=== PATIENT | male | born 1945 | race Caucasian/White ===

== ENCOUNTER 2018-11-18 14:12 | Observation (INO) ==
[2018-11-18 17:30] LABS: Basophils % 0.3 %; Eosinophils # 0.1 K/mcL (0.0-0.6); Eosinophils % 1.6 %; Hematocrit 31.6 % (37.5-50.1); Hemoglobin 9.7 g/dL (12.9-16.9); Immature Granulocytes % 0.6 % (0-4); Lymphocytes % 15.6 %; Mean Corpuscular HGB Conc 30.7 g/dL (31.6-35.5); Mean Corpuscular Hemoglobin 28.6 pg (28.0-33.3); Mean Corpuscular Volume 93.2 fL (83.0-100.0); Mean Platelet Volume 9.7 fL (9.4-12.4); Monocytes # 0.5 K/mcL (0.0-1.3); Monocytes % 7.6 %; Neutrophils # 4.7 K/mcL (1.6-8.9); Red Blood Count 3.39 M/mcL (4.19-5.50); Red Cell Distribution Width 19.5 % (11.5-14.5); Segmented Neutrophils % 74.3 %
[2018-11-18 17:57] LABS: Platelet Count 87 K/mcL (140-400)
[2018-11-18 18:00] LABS: Burr Cells 1+ (Not Present)
--- NOTE | 2018-11-18 18:54 | Emergency Department Note ---
Disposition Clinical Impression: Peripheral edema, Atrial fibrillation Disposition: Admitted As Inpatient Condition: Good Referrals: Peyton Hernandez CNP [Primary Care Provider] - Forms: ED Satisfaction Letter General Adult HPI - General Chief complaint: ED Extremity Injury, Lower Stated complaint: Possible Renal Failure,Needs Labs,Cellulitis Time Seen by Provider: 11/18/18 17:09 Source: patient Limitations: no limitations - History of Present Illness HPI Narrative: Patient is a 73-year-old gentleman presents to emergency department with a chief complaint of lower extremity swelling and possible cellulitis. The patient states that he recently was in the hospital had renal failure and was on dialysis for several days. Patient reports that he has had increasing edema in his lower extremities and was seen in the nephrology clinic today in the emergency department for possible cellulitis and possibility of worsening renal failure. The patient reports that he has had some increasing shortness of breath reports that he feels a little bit more tired than normal as well Pain Scale: 0 - Related Data Home Medications Medication Instructions Recorded Confirmed Amlodipine Besylate 10 mg PO BID 09/13/18 09/13/18 Atorvastatin Calcium [Lipitor] 20 mg PO HS 09/13/18 09/13/18 Fenofibrate Nanocrystallized 145 mg PO HS 09/13/18 09/13/18 [Fenofibrate] Losartan Potassium 50 mg PO DAILY 09/13/18 09/13/18 Metoprolol Succinate [Toprol Xl] 50 mg PO DAILY 09/13/18 09/13/18 Previous Rx's Medication Instructions Recorded amLODIPine [Norvasc] 5 mg PO DAILY #30 tablet 09/22/18 Allergies Allergy/AdvReac Type Severity Reaction Status Date / Time No Known Allergies Allergy Verified 09/13/18 16:59 All systems ED: reviewed and negative except as stated. Past Medical History - Past Medical History Attestation: Yes The following information was validated with the patient. Medical history: Reports: hyperlipidemia, hypertension, renal disease Psychiatric history: Reports: no psych history - Social History Smoking Status: Former smoker Smokeless Tobacco Status: No Alcohol use: Reports: none Drug use: Reports: none Physical Exam - General Limitations: no limitations General appearance: alert, in no apparent distress Course Vital Signs Temperature 97.3 F L 11/18/18 14:17 Pulse Rate 72 11/18/18 14:17 Respiratory Rate 14 11/18/18 14:17 Blood Pressure 141/77 11/18/18 14:17 O2 Sat by Pulse Oximetry 94 11/18/18 14:17 Temperature 97.3 F L 11/18/18 14:17 Pulse Rate 67 11/18/18 19:24 Respiratory Rate 16 11/18/18 19:24 Blood Pressure 155/96 11/18/18 19:24 O2 Sat by Pulse Oximetry 94 11/18/18 19:24 Oxygen Delivery Oxygen Delivery Room Air Medical Decision Making - Lab Data Result diagrams: 11/18/18 17:21 11/18/18 14:53 Lab Results 11/18/18 11/18/18 11/18/18 Range/Units 14:53 15:42 17:21 WBC 6.3 (4.3-11.1) K/mcL RBC 3.39 L (4.19-5.50) M/mcL Hgb 9.7 L (12.9-16.9) g/dL Hct 31.6 L (37.5-50.1) % MCV 93.2 (83.0-100.0) fL MCH 28.6 (28.0-33.3) pg MCHC 30.7 L (31.6-35.5) g/dL RDW 19.5 H (11.5-14.5) % Plt Count 87 L (140-400) K/mcL MPV 9.7 (9.4-12.4) fL Immature Gran % 0.6 (0-4) % Seg Neutrophils % 74.3 % Lymphocytes % 15.6 % Monocytes % 7.6 % Eosinophils % 1.6 % Basophils % 0.3 % Neutrophils # 4.7 (1.6-8.9) K/mcL Lymphocytes # 1.0 (0.6-4.6) K/mcL Monocytes # 0.5 (0.0-1.3) K/mcL Eosinophils # 0.1 (0.0-0.6) K/mcL Basophils # 0.0 (0.0-0.2) K/mcL [place] Cells 1+ A (Not Present) Sodium 140 (136-145) mEq/L Potassium 5.0 (3.5-5.1) mEq/L Chloride 116 H (98-107) mEq/L Carbon Dioxide 19 L (23-29) mEq/L BUN 52 H (8-23) mg/dL Creatinine 2.84 H (0.70-1.30) mg/dL Est GFR ( Amer) 26 L (> 60) Est GFR (Non-Af Amer) 22 L (> 60) BUN/Creatinine Ratio 18 (6-26) Glucose 111 H (70-105) mg/dL Calculated Osmolality 305 H (280-300) Calcium 9.0 (8.6-10.3) mg/dL B-Natriuretic Peptide (Less than 100) pg/mL Specimen Rejected Miscellaneous 11/18/18 Range/Units 17:22 WBC (4.3-11.1) K/mcL RBC (4.19-5.50) M/mcL Hgb (12.9-16.9) g/dL Hct (37.5-50.1) % MCV (83.0-100.0) fL MCH (28.0-33.3) pg MCHC (31.6-35.5) g/dL RDW (11.5-14.5) % Plt Count (140-400) K/mcL MPV (9.4-12.4) fL Immature Gran % (0-4) % Seg Neutrophils % % Lymphocytes % % Monocytes % % Eosinophils % % Basophils % % Neutrophils # (1.6-8.9) K/mcL Lymphocytes # (0.6-4.6) K/mcL Monocytes # (0.0-1.3) K/mcL Eosinophils # (0.0-0.6) K/mcL Basophils # (0.0-0.2) K/mcL [place] Cells (Not Present) Sodium (136-145) mEq/L Potassium (3.5-5.1) mEq/L Chloride (98-107) mEq/L Carbon Dioxide (23-29) mEq/L BUN (8-23) mg/dL Creatinine (0.70-1.30) mg/dL Est GFR ( Amer) (> 60) Est GFR (Non-Af Amer) (> 60) BUN/Creatinine Ratio (6-26) Glucose (70-105) mg/dL Calculated Osmolality (280-300) Calcium (8.6-10.3) mg/dL B-Natriuretic Peptide 339 H (Less than 100) pg/mL Specimen Rejected
[2018-11-19] MEDS ORDERED: Naloxone 0.4 MG/ML INJ IVP PRN (04:06)
--- NOTE | 2018-11-19 04:17 | Internal Med History&Physical ---
Date of Encounter: 11/19/18 Time of Encounter: 03:20 Internal Medicine - H&P: HPI Chief complaint: Lower extremity edema Admitted From: Emergency Dept Plans for Post Hospital Care: Home History of present illness: Mr. Leach is a 73 year old male Patient presented to the emergency room after being seen by his psychiatric cns earlier in the day. He had increased lower extremity swelling, and with his recent history of cellulitis and congestive heart failure exacerbation, they advised him to come to the emergency room for further evaluation. He also been having shortness of breath as well. He denies chest pain, abdominal pain, nausea, vomiting, diarrhea and constipation. He has no dysuria, and has had good urine output since he is arrived to the emergency room. During his previous admission he did require temporary dialysis. The dialysis catheter at this point has been removed, and patient's renal status has improved. In the emergency room patient's initial vital signs were within normal limits. CBC showed a platelet count of 87, down from his previous admission of 302. Hemoglobin has been stable how ever. BMP showed improved creatinine of 2.84 down from over 3.0 during his previous admission. Patient was noted to have [place] cells on his initial lab work as well. BNP was elevated at 339 which is around the same level as previous. Chest x-ray showed no evidence of acute congestive heart failure, but no lobar pneumonia. EKG's were performed that showed afib, without RVR. Patient was then sent to the medical floor for further management. Upon my evaluation, patient is resting comfortably in the hospital bed in no acute distress. He denies chest pain, abdominal pain, nausea, vomiting, diarrhe a and constipation. He says he is feeling better, has urinated frequently. His initial complaint was his lower extremity edema, he denies cellulitis another new skin changes. He states that his father had a heart attack at the age of 52, and his mother had an aneurysm. Patient himself also had abdominal aortic aneurysm which was repaired a few years ago. He is a prior smoker, but quit 35 years ago. He is a full code. Past Med Surg Social Fam HX - Past Medical History Medical history: hyperlipidemia, hypertension, renal disease Additional medical history: Abdominal Aneurysm Psychiatric history: no psych history - Past Surgical History Additional surgical history: Rotator cuff SX, Back pain - Social History Smoking Status: Former smoker Smokeless Tobacco Status: No Alcohol use: none Drug use: none Internal Medicine - H&P: Meds Amlodipine Besylate 10 mg PO BID 09/13/18 [History] Atorvastatin Calcium [Lipitor] 20 mg PO HS 09/13/18 [History] Fenofibrate Nanocrystallized [Fenofibrate] 145 mg PO HS 09/13/18 [History] Losartan Potassium 50 mg PO DAILY 09/13/18 [History] Metoprolol Succinate [Toprol Xl] 50 mg PO DAILY 09/13/18 [History] amLODIPine [Norvasc] 5 mg PO DAILY #30 tablet 09/22/18 [Rx] Stiolto Respimat Inhal [place] 2 puff PO DAILY 11/18/18 [History] Allergy/AdvReac Type Severity Reaction Status Date / Time No Known Allergies Allergy Verified 09/13/18 16:59 All Systems PM: A 10-system review of systems was performed and is negative for pertinent findings except as documented above in the HPI. - Constitutional Vitals: Temp Pulse Resp BP Pulse Ox 97.4 F L 81 20 155/86 95 11/18/18 22:06 11/18/18 22:06 11/18/18 22:06 11/18/18 22:06 11/18/18 22:06 General appearance: Present: cooperative, A&O X 3, pleasant, no acute distress, answers questions appropriately Exam: - - Head Head exam: Present: normal inspection - Eye Eye exam: Present: EOMI, normal appearance - Respiratory Respiratory exam: Present: rales. Absent: CTAB, respiratory distress, rhonchi, wheezes - Cardiovascular Cardiovascular exam: Present: irregular rhythm. Absent: diastolic murmur, RRR, systolic murmur, tachycardia - GI/Abdominal GI/Abdominal exam: Present: normal bowel sounds, soft. Absent: tenderness - Extremities Exam Extremities exam: Present: pedal edema, warm, radial pulses palpable and symmetrical. Absent: tenderness Additional comments: 3+ pitting edema bilaterally lower extremities - Neurological Exam Neurological exam: Present: no focal deficits, strengths equal and symetr throughout. Absent: motor sensory deficit, facial droop, speech deficit - Skin Skin exam: Present: dry, normal color, warm. Absent: erythema Internal Med - H&P Results - Labs CBC & Chem 7: 11/19/18 04:27 11/19/18 04:27 Labs: Short CBC 04/30/19 Range/Units 17:21 WBC 6.3 (4.3-11.1) K/mcL Hgb 9.7 L (12.9-16.9) g/dL Hct 31.6 L (37.5-50.1) % Plt Count 87 L (140-400) K/mcL Neutrophils # 4.7 (1.6-8.9) K/mcL BMP 11/18/18 14:53 Sodium 140 Potassium 5.0 Chloride 116 H Carbon Dioxide 19 L BUN 52 H Creatinine 2.84 H Glucose 111 H Calcium 9.0 - Impressions ITS Impressions Chest X-Ray 11/18/18 18:04 IMPRESSION: 1. Cardiomegaly with no evidence of acute congestive heart failure. 2. Asymmetric left bronchial wall thickening which may relate to bronchitis/bronchopneumonia. No lobar pneumonia. D/ / 11/18/2018 19:01:25 Marcos Haider MD / momo Interpreting Provider: Marcos Haider MD - Assessment and Plan (1) Peripheral edema Current Visit: Yes Status: Acute Assessment and plan: Patient would likely benefit from diuresis however due to his kidney function we will hold until input from nephrology. Patient is not on Lasix at home. No evidence of cellulitis in lower extremities or upper extremities. Chest and abdomen also clear. White count not elevated. Follow-up Nephrology consult in the morning Consider Lasix (2) Chronic kidney disease, stage IV (severe) Current Visit: Yes Status: Acute Assessment and plan: Patient no longer on dialysis. Renal function has improved. Holding off on IV fluids due to peripheral edema Nephrology consult in the morning (3) Diastolic heart failure Current Visit: No Status: Acute Assessment and plan: Patient's lower extremities are 3+ pitting edema bilaterally. Chest x-ray did not reveal evidence of CHF. BNP elevated at 339. Echocardiogram from August: Impressions: Not all LV morocho seen, LVEF grossly 50-55%. Mild concentric left ventricular hypertrophy. Mild left ventricular diastolic dysfunction. Normal right ventricular structure and function. No significant valvular dysfunction. Unable to estimate RVSP due to lack of TR jet. Recommend limited echo with definity for LV wall motion. Nephrology consult for guidance on diuresis in the setting of chronic kidney disease stage IV Repeat labs in the morning appear improved kidney function from previous. Qualifiers: Heart failure chronicity: acute on chronic Qualified Code(s): I50.33 - Acute on chronic diastolic (congestive) heart failure (4) Atrial fibrillation Current Visit: Yes Status: Acute Assessment and plan: Rate controlled, patient now appears to be regular rhythm. Continue to monitor Qualifiers: Atrial fibrillation type: unspecified Qualified Code(s): I48.91 - Unspecified atrial fibrillation (5) Thrombocytopenia Current Visit: Yes Status: Acute Assessment and plan: Unclear etiology, patient had normal platelet levels during his previous admission. He was discharged almost 2 months ago. Patient has several bruises over his arms and legs, but states these are chronic. Obtain heparin PF4 IgG to rule out heparin-induced thrombocytopenia Consider hematology consultation Hold heparin (6) DVT prophylaxis Current Visit: No Status: Acute Assessment and plan: We will hold off on subcutaneous heparin due to new thrombocytopenia. - Time Spent With Patient Total time spent is greater than 50% in coordination of care (as documented) at patient's floor/unit and/or counseling patient: Greater than 35 minutes
[2018-11-19 04:58] LABS: Hemoglobin 9.4 g/dL (12.9-16.9)
[2018-11-19 05:00] LABS: Basophils % 0.2 %; Eosinophils # 0.1 K/mcL (0.0-0.6); Eosinophils % 2.8 %; Hematocrit 30.8 % (37.5-50.1); Immature Granulocytes % 0.6 % (0-4); Immature Platelets 2.3 % (1.1-6.1); Lymphocytes # 0.9 K/mcL (0.6-4.6); Lymphocytes % 18.2 %; Mean Corpuscular HGB Conc 30.5 g/dL (31.6-35.5); Mean Corpuscular Hemoglobin 28.4 pg (28.0-33.3); Mean Corpuscular Volume 93.1 fL (83.0-100.0); Mean Platelet Volume 9.8 fL (9.4-12.4); Monocytes # 0.4 K/mcL (0.0-1.3); Monocytes % 8.5 %; Neutrophils # 3.4 K/mcL (1.6-8.9); Red Blood Count 3.31 M/mcL (4.19-5.50); Red Cell Distribution Width 19.1 % (11.5-14.5); Segmented Neutrophils % 69.7 %
[2018-11-19 05:12] LABS: Platelet Count 86 K/mcL (140-400)
[2018-11-19 05:18] LABS: Albumin 3.5 g/dL (3.5-5.7); Albumin/Globulin Ratio 1.1 (1.1-2.2); Bilirubin,Total 0.8 mg/dL (0.3-1.0); Calcium 9.1 mg/dL (8.6-10.3); Globulin 3.3 g/dL (2.4-3.5); Phosphorous 4.4 mg/dL (2.7-4.5); Potassium 4.9 mEq/L (3.5-5.1); Total Protein 6.8 g/dL (6.4-8.9)
[2018-11-19] MEDS ORDERED: *HR* Heparin 5,000 UNIT/ML VIAL SQ SCH (06:00)
--- NOTE | 2018-11-19 07:50 | Nephrology Consult Note ---
Date of Encounter: 11/19/18 Time of Encounter: 09:00 Assessment and Plan (1) Peripheral edema Current Visit: Yes Status: Acute Peripheral edema. Most likely due to large dose of amlodipine after last hospital discharge. Patient's CXR does not show pulmonary edema or pneumonia, no worsening shortness of breath, and BNP is at baseline, so less likely due to CHF exacerbation or COPD exacerbation. Creatinine is currently at baseline. Patient has had weight loss over the last 2 months despite peripheral edema. At hospital discharge, there was a continuation of his home medication of amlodipine 10mg BID and an addition of 5mg daily. No comment made in hospital discharge about this change in medication. Per family, Dr. Orona continued amlodipine 25mg. Patient does not take diuretics at home therefore will give Lasix 40mg Po daily to start. Expect peripheral edema to improve over the next couple of days by stopping the amlodipine. Plan: - continue stopping amlodipine, will reevaulate home medications for blood pressure control - start Lasix 40mg Po daily - continue strict I&Os - avoid nephrotoxins (2) Chronic kidney disease, stage IV (severe) Current Visit: Yes Status: Acute CKD stage IV, per patient most likely cause is due long standing use of Ibuprofen and HTN. Creatinine and GFR at baseline today. We start gentle diuretics and recheck Cr and peripheral edema tomorrow. Patient's neurologist is Dr. Dodd. Attempt was made to call office to coordinate care. Plan: - strict I&Os - avoid nephrotoxins - continue to adjust medications based on CrCl - diet: renal, cardiac diet (3) Thrombocytopenia Current Visit: Yes Status: Acute (4) Hypertension Current Visit: No Status: Acute Currently blood pressure is well controlled on metoprolol and losartan. Will continue to monitor blood pressure off of amlodipine. Qualifiers: Hypertension type: essential hypertension Qualified Code(s): I10 - Essential (primary) hypertension History of Present Illness - Reason for Consult Consult date: 11/19/18 Requesting physician: Prince Tao - Chief Complaint lower extremity swelling - History of Present Illness Mr. Leach is a 73 y/o male with a pmh of diastolic CHF, HTN, and CKD stage 3b- IV requiring HD during a recent hospital stay who presented to the ED for lower extremity swelling from his nephrology's office. Nephrology was consulted for diuretic management in the setting of his CKD 3b- IV. He states that for the last 3 weeks, patient has lower extremity edema. He states though that he has lost 15 pounds since his last hospitalization at the beginning of September. He states that he has not had associated SOB with increased lower extremity edema. He has urinated multiple times this morning. He fell a couple of days ago and scratched his leg which has progressed to having discharge to what the believes is pus. He denies nausea, vomiting, diarrhea, dysuria, hematuria. Past Med Surg Social Fam HX - Past Medical History Medical history: hyperlipidemia, hypertension, renal disease Additional medical history: Abdominal Aneurysm Psychiatric history: no psych history - Past Surgical History Additional surgical history: Rotator cuff SX, Back pain - Social History Smoking Status: Former smoker Smokeless Tobacco Status: No Alcohol use: none Drug use: none Medications and Allergies Amlodipine Besylate 10 mg PO BID 09/13/18 [History] Atorvastatin Calcium [Lipitor] 20 mg PO DAILY 09/13/18 [History] Fenofibrate Nanocrystallized [Fenofibrate] 145 mg PO DAILY 09/13/18 [History] Losartan Potassium 50 mg PO DAILY 09/13/18 [History] Metoprolol Succinate [Toprol Xl] 50 mg PO DAILY 09/13/18 [History] Acetaminophen [Tylenol] 650 mg PO BID PRN 11/19/18 [History] Albuterol Sulfate [Ventolin Hfa] 2 puff IH Q4-6H PRN 11/19/18 [History] Clobetasol Propionate [Cormax] 1 appl TP BID PRN 11/19/18 [History] amLODIPine [Norvasc] 5 mg PO QAM 11/19/18 [History] Allergy/AdvReac Type Severity Reaction Status Date / Time No Known Allergies Allergy Verified 11/19/18 08:40 Review of Systems Constitutional: as per HPI Exam - Vital Signs Vital signs: Initial Vital Signs Temp Pulse Resp BP Pulse Ox 97.3 F L 72 14 141/77 94 11/18/18 14:17 11/18/18 14:17 11/18/18 14:17 11/18/18 14:17 11/18/18 14:17 Vital Signs - Last 8 Hours Temp Pulse Resp BP Pulse Ox 11/19/18 07:32 97.5 F L 72 18 131/76 95 11/19/18 04:37 97.6 F 73 18 149/79 91 Intake and Output 11/18/18 11/18/18 11/19/18 15:59 23:59 07:59 Intake Total 100 / 100 Balance 100 / 100 Intake: Oral 100 / 100 Other: # Voids 1 # Bowel Movements 1 Weight 113.398 kg - General Appearance Exam: Constitutional: Alert, in no acute distress Head: Normocephalic, atraumatic Heart: Normal, regular rate and rhythm, no murmurs Lungs: Clear to auscultation, no wheezes, rales, or rhonchi Abdomen: Soft, nondistended, nontender, bowel sounds present and normal, no guarding or rigidity. Extremities: +2 pitting edema of LE, erythematous abrasions on skins, No clubbing, radial pulse +2/4, capillary refill <2sec. Skin: Skin warm and dry, no lesions, no rashes, no jaundice Neurologic: Cranial nerves II through XII grossly intact, strength 5/5 in all extremities Psych: Cooperative with exam, good eye contact, cognitive function intact, speech clear, thought process logical, and goal directed Results - Lab Results 11/19/18 04:27 11/19/18 04:27 Most recent lab results 11/19/18 04:27 Calcium 9.1 Phosphorus 4.4 Consult Discharge Plan - Plan Referrals: Peyton Hernandez CNP [Primary Care Provider] -
--- NOTE | 2018-11-19 09:00 | Electrocardiograph Report ---
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
[2018-11-19] MEDS: Metoprolol XL (24 HR) Succ 50 MG TAB.ER.24H PO SCH (09:17)
[2018-11-19] MEDS: Fenofibrate 54 MG TABLET PO SCH (09:17)
--- NOTE | 2018-11-19 10:51 | Event Note ---
Date of Encounter: 11/19/18 Time of Encounter: 10:41 I have seen and evaluated the patient at bedside. her denies shortness of breath at rest, but reports SOB with moderate to mild ambulation, denies orthopnea. reports he has been taking 25mg of amlodipine for the past 3 weeks. reported never been on a diuretic due to concerns of possible worsening kidney function. Physical Exam: Vitals: Reviewed General: Alert and oriented x4. In no distress Skin: Normal color, no rash, no lesions. HEENT: EOM, pupils equal, round and reactive. Cardiovascular: RRR, normal S1 & S2, no rubs, murmurs or gallops. Lungs: CTA b/l, no wheezes or crackles. Abdomen: Obese, soft, non-tender, no rigidity. Extremities: 2+ edema in the lower extr b/l. Neurological: Normal cognition and motor skills. Rest of the physical exam is non contributory Assessment and plan: 1. lower extremity edema unclear, possible chf vs medications. 2. CKD Stage IV 4. HTN 5. HFpEF 6. DVT prophylaxis 7. HLD 8. Thrombocytopenia Plan discontinue amlodipine discussed with nephrology about adding a diuretic limited echo ordered, last echo sub-optimal will continue lipid lowering home medications continue metoprolol 25mg/PO daily will resume losartan No chemical DVT prophylaxis, due to thrombocytopenia and recent use of heparin. HIT panel ordered. venous dupplex
[2018-11-19] MEDS ORDERED: Furosemide Oral Soln 40 MG/4 ML UDC PO SCH (11:00)
[2018-11-19] MEDS ORDERED: Furosemide 40 MG TABLET PO SCH (11:30)
[2018-11-19] MEDS ORDERED: Perflutren Lipid Microsphere 1.3 ML in 0.9 % Sodium Chloride 8.7 ML IVP ONE (19:49)
[2018-11-20 05:10] LABS: BUN/Creatinine Ratio 21 (6-26); Blood Urea Nitrogen 57 mg/dL (8-23); C-Reactive Protein < 5 mg/L (Less than 10); Calcium 9.3 mg/dL (8.6-10.3); Carbon Dioxide 19 mEq/L (23-29); Chloride 113 mEq/L (98-107); Glucose 72 mg/dL (70-105); Magnesium 1.7 mg/dL (1.6-2.6); Osmolality,Calculated 306 (280-300); Phosphorous 4.7 mg/dL (2.7-4.5); Potassium 4.9 mEq/L (3.5-5.1); Sodium 141 mEq/L (136-145); eGFR For Non-African Americans 23 (> 60)
[2018-11-20] MEDS: Fenofibrate 54 MG TABLET PO SCH (08:07)
[2018-11-20] MEDS: Metoprolol XL (24 HR) Succ 50 MG TAB.ER.24H PO SCH (08:08)
[2018-11-20] MEDS ORDERED: traMADol 50 MG TABLET PO PRN (09:45)
--- NOTE | 2018-11-20 10:35 | Internal Med Progress Note ---
Hospitalist Progress Note - Encounter Date of Encounter: 11/20/18 Time of Encounter: 10:32 - Subjective Interval History: I have seen and evaluated the patient at bedside. Patient reports that the swelling in his lower extremities is improving, feels less pressure. denies tenderness or redness. denies shortness of breath, nausea or vomiting. denies chest pain - Exam Vitals: Temp Pulse Resp BP Pulse Ox 97.6 F 83 18 163/78 95 11/20/18 08:01 11/20/18 08:01 11/20/18 08:01 11/20/18 08:01 11/20/18 08:01 Exam: Physical Exam: Vitals: Reviewed General: Alert and oriented x4. In no distress Cardiovascular: RRR, normal S1 & S2, no rubs, murmurs or gallops. Lungs: CTA b/l, no wheezes or crackles. Abdomen: Obese, soft, non-tender, no rigidity. NABS in all 4 quadrants Extremities: 2+ edema in the lower extr b/l. Neurological: Normal cognition Rest of the physical exam is non contributory - Assessment and Plan (1) Hypertension Current Visit: No Status: Chronic Assessment and Plan: Blood pressure sub-optimally controlled. Patient is on metoprolol 50 mg by mouth daily, and losartan 25 mg by mouth daily. Increase losartan to 50 mg by mouth daily home dose. (2) Peripheral edema Current Visit: Yes Status: Acute Assessment and Plan: Limited echocardiogram. Estimated ejection fraction of 55%, mild concentric left ventricular hypertrophy, normal right ventricular structure and function. Venous Doppler unremarkable. Continue diuresis per nephrology recommendation. patient given a trial of PO furosemide. 1 litter of fluids negative during the past 24 hours. Nephrology recommended furosemide 20 mg daily when necessary (3) Chronic kidney disease, stage IV (severe) Current Visit: Yes Status: Acute Assessment and Plan: Kidney function at baseline. Continue to avoid nephrotoxic medication. Sodium bicarbonate added, goal serum bicarbonate more than 25. Nephrology recommendation appreciated. (4) Thrombocytopenia Current Visit: Yes Status: Acute Assessment and Plan: Unclear etiology, possible due to heparin exposure on a previous admission vs elevated LFTs. will repeat cbc tomorrow morning HIT panel ordered (5) Elevated liver enzymes Current Visit: Yes Status: Acute (6) Transaminitis Current Visit: Yes Status: Acute Assessment and Plan: unclear etiology. GGT Liver US ordered will repeat LFTs tomorrow morning. (7) HLD (hyperlipidemia) Current Visit: Yes Status: Chronic Assessment and Plan: Continue atorvastatin and fenofibrate. DVT Prophylaxis: Intermittent pneumatic compression for dvt prophylaxis no chemical dvt prophylaxis due to thrombocytopenia and recent exposure to heparin - Summary of Assessment and Plan Summary of Assessment and Plan: Patient admitted to hospital due to lower extremity edema. Will discuss with nephrology about a second trial of oral diuretics. Patient to remain in the hospital to monitor kidney function for at least 24 more hours. Potential discharge tomorrow morning. - Time Spent with Patient Total time spent is greater than 50% in coordination of care (as documented) at patient's floor/unit and/or counseling patient: Greater than 35 minutes (40) Plan of Care Discussed with: patient (and the nurse.) Internal Medicine: Result - Labs CBC & Chem 7: 11/19/18 04:27 11/20/18 04:27 Labs: BMP 11/20/18 04:27 Sodium 141 Potassium 4.9 Chloride 113 H Carbon Dioxide 19 L BUN 57 H Creatinine 2.75 H Glucose 72 Calcium 9.3 Consult Discharge Plan - Plan Referrals: Peyton Hernandez GETTERING OPERATOR [Primary Care Provider] - (1) Hypertension Qualifiers: Hypertension type: essential hypertension Qualified Code(s): I10 - Essential (primary) hypertension (7) HLD (hyperlipidemia) Qualifiers: Hyperlipidemia type: unspecified Qualified Code(s): E78.5 - Hyperlipidemia, unspecified
[2018-11-20] MEDS: traMADol 50 MG TABLET PO PRN ×2 (11:07→22:30)
--- NOTE | 2018-11-20 14:25 | Nephrology Progress Note ---
Date of Encounter: 11/20/18 Time of Encounter: 14:25 - Assessment and Plan (1) Peripheral edema Current Visit: Yes Status: Acute Peripheral edema. Most likely due to large dose of amlodipine after last hospital discharge. Patient's CXR does not show pulmonary edema or pneumonia, no worsening shortness of breath, and BNP is at baseline, so less likely due to CHF exacerbation or COPD exacerbation. Creatinine is currently at baseline. Patient has had weight loss over the last 2 months despite peripheral edema. At hospital discharge, there was a continuation of his home medication of amlodipine 10mg BID and an addition of 5mg daily. No comment made in hospital discharge about this change in medication. Per family, Dr. Orona continued amlodipine 25mg. continue to believe amlodipine to be the cause of the swelling as US of LE showed no DVT and echo showed no reduced EF. On physical exam peripheral edema has started to improve. Lasix 40mg given yesterday with a slight bump in creatinine therefore due to patient's improving edema and no shortness of breath we will stop Lasix as not to cause further u nnecessary harm to the kidneys. He can be discharged with a home dose of Lasix 20mg to take prn for swelling. Discussed this with the family. Plan: - continue stopping amlodipine, will reevaulate home medications for blood pressure control - stop Lasix for tomorrow, can go home with Lasix 20mg daily prn for swelling - continue strict I&Os - avoid nephrotoxins (2) Hypertension Current Visit: No Status: Chronic Currently blood pressure is well controlled on metoprolol and losartan. Will continue to monitor blood pressure off of amlodipine. Patient should begin to see elevation in about 4-5 days. Discussed with patient to monitor for this change and discuss with his PCP. Qualifiers: Hypertension type: essential hypertension Qualified Code(s): I10 - E ssential (primary) hypertension (3) Chronic kidney disease, stage IV (severe) Current Visit: Yes Status: Acute CKD stage IV, per patient most likely cause is due long standing use of Ibuprofen and HTN. Creatinine and GFR at baseline today. We start gentle diuretics and recheck Cr and peripheral edema tomorrow. Patient's neurologist is Dr. Dodd. Attempt was made to call office to coordinate care yesterday and this morning, no response. Plan: - strict I&Os - avoid nephrotoxins - continue to adjust medications based on CrCl - diet: renal, cardiac diet (4) Thrombocytopenia Current Visit: Yes Status: Acute (5) Elevated liver enzymes Current Visit: Yes Status: Acute (6) Transaminitis Current Visit: Yes Status: Acute (7) HLD (hyperlipidemia) Current Visit: Yes Status: Chronic Qualifiers: Hyperlipidemia type: unspecified Qualified Code(s): E78.5 - Hyperlipidemia, unspecified Subjective Principal diagnosis: DEV Interval history: Mr. Leach is a 73 y/o male with a pmh of diastolic CHF, HTN, and CKD stage 3b- IV requiring HD during a recent hospital stay who presented to the ED for lower extremity swelling from his nephrology's office. Nephrology was consulted for diuretic management in the setting of his CKD 3b- IV. Today, patient states that he has had improved lower extremity edema. He has sat with his legs down since 5:30AM and he has not had worsening edema. He denies SOB or chest pain. He has been voiding frequently without dysuria. Objective - Vital Signs Vital signs: Vital Signs Temp Pulse Resp BP Pulse Ox 11/20/18 11:28 97.3 F L 71 18 117/71 94 11/20/18 08:01 97.6 F 83 18 163/78 95 11/20/18 03:55 97.5 F L 82 20 146/76 94 11/19/18 23:56 97.4 F L 78 20 129/65 95 11/19/18 19:03 97.7 F 71 24 142/71 97 11/19/18 16:12 97.4 F L 69 20 135/77 99 Intake and Output 11/19/18 11/20/18 11/20/18 23:59 07:59 15:59 Intake Total 240 / 720 480 / 480 Output Total 800 / 1200 400 / 600 200 / 600 Balance -560 / -480 -400 / -120 280 / -120 Intake: Oral 240 / 720 480 / 480 Output: Urine 800 / 1200 400 / 600 200 / 600 Other: Meal Dinner Lunch Percent of Meal Consumed 100% 100% Weight 121.835 kg Patient Weight 11/20/18 23:59 Weight 121.835 kg - General Appearance Exam: Constitutional: Alert, in no acute distress Head: Normocephalic, atraumatic Heart: Normal, regular rate and rhythm, no murmurs Lungs: Clear to auscultation, no wheezes, rales, or rhonchi Abdomen: Soft, nondistended, nontender, bowel sounds present and normal, no guarding or rigidity. Extremities: +2 pitting edema of LE still present but improving, erythematous abrasions on skins, No clubbing, radial pulse +2/4, capillary refill <2sec. Skin: Skin warm and dry, no lesions, no rashes, no jaundice Neurologic: Cranial nerves II through XII grossly intact, Psych: Cooperative with exam, good eye contact, cognitive function intact, speech clear, thought process logical, and goal directed - Lab 11/19/18 04:27 11/20/18 04:27 Most recent lab results 11/20/18 04:27 Calcium 9.3 Phosphorus 4.7 H Magnesium 1.7 Consult Discharge Plan - Plan Referrals: Peyton Hernandez [employer] [Primary Care Provider] -
[2018-11-21 02:40] LABS: Albumin 3.4 g/dL (3.5-5.7); Albumin/Globulin Ratio 1.1 (1.1-2.2); Bilirubin,Direct 0.3 mg/dL (0.0-0.2); Bilirubin,Indirect 0.4 mg/dL (0.0-1.2); Bilirubin,Total 0.7 mg/dL (0.3-1.0); Globulin 3.2 g/dL (2.4-3.5); Total Protein 6.6 g/dL (6.4-8.9)
[2018-11-21 06:38] LABS: Calcium 8.8 mg/dL (8.6-10.3); Potassium 4.9 mEq/L (3.5-5.1)
[2018-11-21 06:54] VITALS: BP 127/76
[2018-11-21] MEDS: Fenofibrate 54 MG TABLET PO SCH (08:10)
[2018-11-21] MEDS: Metoprolol XL (24 HR) Succ 50 MG TAB.ER.24H PO SCH (08:10)
[2018-11-21] MEDS: traMADol 50 MG TABLET PO PRN (08:14)
--- NOTE | 2018-11-21 09:18 | Discharge Summary ---
- NOTES TO OUTPATIENT PROVIDER Notes to Outpatient Provider: LFTs within a week. AST 61. ALT 61. GGT 33. CBC to follow platelets. 81 on DC Orders not resulted at time of discharge: Pending orders 11/19/18 07:27 Hep Ind Thromb(HIT) PF4 IgG Routine Date of Encounter: 11/21/18 Time of Encounter: 09:14 - Discharge Diagnosis (1) Hypertension Priority: Secondary Status: Chronic Qualifiers: Hypertension type: essential hypertension Qualified Code(s): I10 - Essential (primary) hypertension (2) Peripheral edema Priority: Primary Status: Acute (3) Chronic kidney disease, stage IV (severe) Priority: Secondary Status: Chronic (4) Thrombocytopenia Priority: Secondary Status: Chronic (5) Transaminitis Priority: Secondary Status: Acute (6) HLD (hyperlipidemia) Priority: Secondary Status: Chronic Qualifiers: Hyperlipidemia type: unspecified Qualified Code(s): E78.5 - Hyperlipidemia, unspecified Hospital course: Mr. Leach is a 73 year old male past medical history of hyperlipidemia, hypertension, CKD. Patient presented to the emergency room after being seen by his psychiatric therapist earlier in the day due to worsening edema of the lower extremity. Patient was admitted to the hospital due to lower extremity edema, rule out CHF. Lower extremity edema during these admission is believed to be due to medications. Patient reported he has been taking 25mg of amlodipine every day for the past 3 weeks. TTE done as part of the work up: LVEF 55%. Mild concentric left ventricular hypertrophy. Normal right ventricular structure and function. Venous dupplex: unremarkable. edema of the lower extremities improved with 40mg of PO furosemide and discontinuation of amlodipine. Patient is being discharged home with PRN furosemide 20mg/PO, educated to take the medication only if the edema of the lower extremities worsen or if starts gaining weight. Patient is hemodynamically stable to be discharged, and recommended to follow-up with his psychiatric therapist and primary care doctor within a week of hospital discharge. - Time Spent with Patient Total time spent providing and/or coordinating discharge services: Time spent: Greater than 30 minutes (35) - Discharge Medications Prescriptions: New Sodium Bicarbonate 325 mg PO TID 30 Days #90 tablet Furosemide [Lasix] 10 mg PO DAILY PRN 30 Days #30 tablet PRN Reason: Edema Continued Atorvastatin Calcium [Lipitor] 20 mg PO DAILY Fenofibrate Nanocrystallized [Fenofibrate] 145 mg PO DAILY Losartan Potassium 50 mg PO DAILY Metoprolol Succinate [Toprol Xl] 50 mg PO DAILY Acetaminophen [Tylenol] 650 mg PO BID PRN PRN Reason: Pain Albuterol Sulfate [Ventolin Hfa] 2 puff IH Q4-6H PRN PRN Reason: Shortness Of Breath Clobetasol Propionate [Cormax] 1 appl TP BID PRN PRN Reason: SWELLING/ITCH/REDNESS Discontinued Amlodipine Besylate 10 mg PO BID amLODIPine [Norvasc] 5 mg PO QAM Home Medications: Atorvastatin Calcium [Lipitor] 20 mg PO DAILY 09/13/18 [History] Fenofibrate Nanocrystallized [Fenofibrate] 145 mg PO DAILY 09/13/18 [History] Losartan Potassium 50 mg PO DAILY 09/13/18 [History] Metoprolol Succinate [Toprol Xl] 50 mg PO DAILY 09/13/18 [History] Acetaminophen [Tylenol] 650 mg PO BID PRN 11/19/18 [History] Albuterol Sulfate [Ventolin Hfa] 2 puff IH Q4-6H PRN 11/19/18 [History] Clobetasol Propionate [Cormax] 1 appl TP BID PRN 11/19/18 [History] Furosemide [Lasix] 10 mg PO DAILY PRN 30 Days #30 tablet 11/21/18 [Rx] Sodium Bicarbonate 325 mg PO TID 30 Days #90 tablet 11/21/18 [Rx] Allergies/Adverse Reactions: Allergy/AdvReac Type Severity Reaction Status Date / Time No Known Allergies Allergy Verified 11/19/18 08:40 Date of admission: 11/18/18 20:43 Primary care physician: Peyton Hernandez CNP Consults: 11/19/18 04:49 Consult to Nephrology [CONS] Routine Consulting Provider: Kidney Carrie/JONI/HUDSON/STAN Reason for Consult: Acute on chronic renal failure with fluid overload. Call Completed: No 11/19/18 09:56 Consult to Nurse Navigator [CONS] Routine Comment: chf - Constitutional Vitals: Temp Pulse Resp BP Pulse Ox 97.6 F 81 16 127/76 95 11/21/18 06:52 11/21/18 06:52 11/21/18 06:52 11/21/18 06:52 11/21/18 06:52 General appearance: Present: cooperative, A&O X 3, pleasant, no acute distress, answers questions appropriately Exam: Physical Exam: Vitals: Reviewed General: Alert and oriented x4. In no distress Cardiovascular: RRR, normal S1 & S2, no rubs, murmurs or gallops. Lungs: CTA b/l, no wheezes or crackles. Abdomen: Obese, soft, non-tender, no rigidity. NABS in all 4 quadrants Extremities: 2+ edema in the lower extr b/l. Neurological: Normal cognition Rest of the physical exam is non contributory - Patient Status Disposition: Home, Self-Care Condition: Good Functional capacity at discharge: independent ambulation Overall status at discharge: patient is progressing back to baseline - Discharge Instructions Instructions: Sodium Bicarbonate (By mouth), Thrombocytopenia (DC) Follow Up With: Peyton Hernandez CNP [Primary Care Provider] - 11/24/18 9:00 am Forms: Work/School Release - Diet and Activity Activity: resume usual activities as tolerated Diet: low salt diet
== END 2018-11-21 11:38 | disposition home or self-care (01) ==
LOC: EMEROOARM 14:12 → 2ANU 14:12 → SUATTDRO 20:43 → 2ANU 21:57
PROVIDERS: ADMIT Pediatrics; ATTEND Internal Medicine

== ENCOUNTER 2019-07-03 01:33 | Inpatient (IN) ==
[2019-07-03 03:11] LABS: Basophils % 0.2 %; Eosinophils # 0.1 K/mcL (0.0-0.6); Eosinophils % 1.6 %; Hematocrit 43.6 % (37.5-50.1); Hemoglobin 13.7 g/dL (12.9-16.9); Lymphocytes # 0.9 K/mcL (0.6-4.6); Mean Corpuscular HGB Conc 31.4 g/dL (31.6-35.5); Mean Corpuscular Hemoglobin 27.3 pg (28.0-33.3); Mean Platelet Volume 10.8 fL (9.4-12.4); Monocytes # 0.8 K/mcL (0.0-1.3); Monocytes % 9.5 %; Neutrophils # 6.3 K/mcL (1.6-8.9); Nucleated Red Blood Cells 0.2 /100 WBC (0); Platelet Count 225 K/mcL (140-400); Red Blood Count 5.01 M/mcL (4.19-5.50); Red Cell Distribution Width 15.5 % (11.5-14.5); Segmented Neutrophils % 76.7 %; White Blood Count 8.2 K/mcL (4.3-11.1)
[2019-07-03 03:16] LABS: INR 1.6; Prothrombin Time 18.7 Seconds (9.4-12.1)
[2019-07-03 03:22] LABS: Bilirubin,Urine Negative (Negative); Blood,Urine Negative (Negative); Clarity,Urine Cloudy (Clear); Color,Urine Yellow (Yellow); Glucose,Urine (UA) Normal (Normal); Ketones,Urine Negative (Negative); Leukocyte Esterase,Urine Small (Negative); Nitrite,Urine Negative (Negative); Protein,Urine >=300 mg/dL (Neg-Trace); Specific Gravity,Urine 1.022 (1.010-1.025); Urobilinogen,Urine Normal (Normal)
[2019-07-03 03:24] LABS: Bacteria,Urine None Seen per hpf (None-Few); Hyaline Casts,Urine None Seen per lpf (None-Few); Squamous Epithelial Cell,Urine Moderate per lpf (None-Few); WBC,Urine 50-100 per hpf (0-3)
[2019-07-03 03:34] LABS: Albumin 3.5 g/dL (3.5-5.7); Bilirubin,Direct 1.4 mg/dL (0.0-0.2); Bilirubin,Indirect 0.8 mg/dL (0.0-1.0); Bilirubin,Total 2.2 mg/dL (0.3-1.0); Calcium 9.2 mg/dL (8.6-10.3); Globulin 3.6 g/dL (2.4-3.5); Total Protein 7.1 g/dL (6.4-8.9)
[2019-07-03 03:35] LABS: Sperm,Urine Present
[2019-07-03] MEDS ORDERED: Isovue-370 500 ML BOTTLE IVP ONE (03:35)
[2019-07-03 03:37] LABS: Troponin I 0.06 ng/mL (< 0.04)
[2019-07-03] MEDS ORDERED: Furosemide 40 MG/4 ML VIAL IVP ONE (04:18)
[2019-07-03] MEDS: Nitroglycerin 0.4 MG TAB.SUBL SL PRN ×3 (04:36→04:56)
[2019-07-03] MEDS ORDERED: *HR* Heparin 5,000 UNIT/ML VIAL IVP PRN ×4 (05:16→06:21)
[2019-07-03] MEDS ORDERED: *HR* Heparin 5,000 UNIT/ML VIAL IVP ONE ×2 (05:16→06:21)
[2019-07-03] MEDS: Heparin 25,000 UNIT/250 ML D5W 25,000 UNIT/250 ML IV.SOLN IVC SCH ×4 (05:59→20:21)
[2019-07-03 06:11] LABS: INR 1.6; Prothrombin Time 17.9 Seconds (9.4-12.1)
[2019-07-03] MEDS ORDERED: Naloxone 0.4 MG/ML INJ IVP PRN (07:42)
[2019-07-03] MEDS ORDERED: Melatonin 3 MG TABLET PO PRN (08:09)
[2019-07-03] MEDS ORDERED: CLOBETASOL PROPIONATE APPL TP PRN (08:09)
[2019-07-03] MEDS ORDERED: predniSONE 10 MG TABLET PO SCH (09:00)
[2019-07-03] MEDS ORDERED: Fenofibrate 54 MG TABLET PO SCH (09:00)
[2019-07-03] MEDS: predniSONE 10 MG TABLET PO SCH (09:44)
[2019-07-03] MEDS: Metoprolol XL (24 HR) Succ 50 MG TAB.ER.24H PO SCH (09:44)
[2019-07-03] MEDS: STIOLTO RESPIMAT INHAL IH SCH (09:45)
[2019-07-03 12:49] LABS: Hepatitis B Surface Antigen Nonreactive (Nonreactive)
[2019-07-03 13:17] LABS: Hepatitis C Virus Antibody Nonreactive (Nonreactive)
[2019-07-03 13:18] LABS: Hepatitis B Core IgM Nonreactive (Nonreactive)
[2019-07-03 13:19] LABS: Hepatitis A Antibody IgM Nonreactive (Nonreactive)
[2019-07-03] MEDS: Clotrimazole 1% CRM 15 GM TUBE TP SCH (13:41)
[2019-07-03] MEDS ORDERED: Methyl Salicylate/Menthol 28 GM TUBE TP PRN (17:30)
[2019-07-03] MEDS ORDERED: Methyl Salicylate/Menthol 57 APPL/57 GM TUBE TP PRN (17:45)
[2019-07-03] MEDS ORDERED: *HR* LORazepam 2 MG/ML VIAL IVP ONE (23:57)
[2019-07-04 01:32] LABS: Protein/Creatinine Ratio,Urine 1.2 mg/mg (0.00-0.20)
[2019-07-04] MEDS ORDERED: *HR* Metoprolol 5 MG/5 ML VIAL IVP ONE (02:38)
[2019-07-04 04:10] LABS: Hematocrit 44.3 % (37.5-50.1); Hemoglobin 13.9 g/dL (12.9-16.9); Mean Corpuscular HGB Conc 31.4 g/dL (31.6-35.5); Mean Corpuscular Hemoglobin 27.7 pg (28.0-33.3); Mean Corpuscular Volume 88.4 fL (83.0-100.0); Platelet Count 209 K/mcL (140-400); Red Blood Count 5.01 M/mcL (4.19-5.50); Red Cell Distribution Width 15.6 % (11.5-14.5); White Blood Count 7.8 K/mcL (4.3-11.1)
[2019-07-04 04:28] LABS: Calcium 9.2 mg/dL (8.6-10.3)
[2019-07-04] MEDS ORDERED: *HR* LORazepam 2 MG/ML VIAL IVP ONE (04:48)
[2019-07-04 07:55] LABS: Albumin 3.4 g/dL (3.5-5.7); Bilirubin,Direct 1.3 mg/dL (0.0-0.2); Bilirubin,Indirect 0.8 mg/dL (0.0-1.0); Bilirubin,Total 2.1 mg/dL (0.3-1.0); Globulin 3.3 g/dL (2.4-3.5); Total Protein 6.7 g/dL (6.4-8.9)
[2019-07-04] MEDS: Metoprolol XL (24 HR) Succ 50 MG TAB.ER.24H PO SCH (08:30)
[2019-07-04] MEDS: predniSONE 10 MG TABLET PO SCH (08:30)
[2019-07-04] MEDS: Clotrimazole 1% CRM 15 GM TUBE TP SCH (08:31)
[2019-07-04] MEDS: STIOLTO RESPIMAT INHAL IH SCH (08:32)
[2019-07-04] MEDS: Furosemide 40 MG/4 ML VIAL IVP SCH ×2 (08:52→20:17)
[2019-07-04] MEDS ORDERED: Furosemide 40 MG/4 ML VIAL IVP SCH (09:00)
[2019-07-04] MEDS: cefTRIAXone 1,000 MG in Water for inj. (sterile) 10 ML IVP SCH (11:12)
[2019-07-04] MEDS: Aspirin Enteric Coated 81 MG Tablet PO SCH (14:38)
[2019-07-04] MEDS: Heparin 25,000 UNIT/250 ML D5W 25,000 UNIT/250 ML IV.SOLN IVC SCH (15:01)
[2019-07-05 05:57] LABS: Basophils % 0.1 %; Eosinophils # 0.1 K/mcL (0.0-0.6); Eosinophils % 1.2 %; Hematocrit 44.3 % (37.5-50.1); Immature Granulocytes % 0.8 % (0-4); Lymphocytes # 0.8 K/mcL (0.6-4.6); Lymphocytes % 8.9 %; Mean Corpuscular HGB Conc 31.6 g/dL (31.6-35.5); Mean Corpuscular Hemoglobin 27.8 pg (28.0-33.3); Mean Corpuscular Volume 88.1 fL (83.0-100.0); Mean Platelet Volume 10.4 fL (9.4-12.4); Monocytes # 0.8 K/mcL (0.0-1.3); Monocytes % 9.3 %; Neutrophils # 6.8 K/mcL (1.6-8.9); Platelet Count 201 K/mcL (140-400); Red Blood Count 5.03 M/mcL (4.19-5.50); Red Cell Distribution Width 15.5 % (11.5-14.5); Segmented Neutrophils % 79.7 %; White Blood Count 8.5 K/mcL (4.3-11.1)
[2019-07-05 06:15] LABS: Potassium 3.6 mEq/L (3.5-5.1)
[2019-07-05] MEDS: cefTRIAXone 1,000 MG in Water for inj. (sterile) 10 ML IVP SCH (09:49)
[2019-07-05] MEDS: Furosemide 40 MG/4 ML VIAL IVP SCH ×2 (09:49→20:16)
[2019-07-05] MEDS: predniSONE 10 MG TABLET PO SCH (09:50)
[2019-07-05] MEDS: Aspirin Enteric Coated 81 MG Tablet PO SCH (09:50)
[2019-07-05] MEDS: Metoprolol XL (24 HR) Succ 50 MG TAB.ER.24H PO SCH (09:51)
[2019-07-05] MEDS: Heparin 25,000 UNIT/250 ML D5W 25,000 UNIT/250 ML IV.SOLN IVC SCH (09:51)
[2019-07-05] MEDS: STIOLTO RESPIMAT INHAL IH SCH (09:53)
[2019-07-05] MEDS: Clotrimazole 1% CRM 15 GM TUBE TP SCH (09:54)
[2019-07-05 14:30] LABS: Albumin 3.4 g/dL (3.5-5.7); Bilirubin,Direct 1.3 mg/dL (0.0-0.2); Bilirubin,Indirect 0.8 mg/dL (0.0-1.0); Bilirubin,Total 2.1 mg/dL (0.3-1.0); Globulin 3.5 g/dL (2.4-3.5); Total Protein 6.9 g/dL (6.4-8.9)
[2019-07-06] MEDS: Heparin 25,000 UNIT/250 ML D5W 25,000 UNIT/250 ML IV.SOLN IVC SCH ×2 (03:49→19:09)
[2019-07-06 05:07] LABS: Basophils % 0.1 %; Eosinophils # 0.1 K/mcL (0.0-0.6); Eosinophils % 0.6 %; Hemoglobin 14.4 g/dL (12.9-16.9); Immature Granulocytes % 0.9 % (0-4); Lymphocytes # 0.7 K/mcL (0.6-4.6); Lymphocytes % 8.4 %; Mean Corpuscular HGB Conc 32.7 g/dL (31.6-35.5); Mean Corpuscular Hemoglobin 27.9 pg (28.0-33.3); Mean Corpuscular Volume 85.1 fL (83.0-100.0); Mean Platelet Volume 10.8 fL (9.4-12.4); Monocytes # 0.7 K/mcL (0.0-1.3); Monocytes % 8.8 %; Neutrophils # 6.2 K/mcL (1.6-8.9); Platelet Count 217 K/mcL (140-400); Red Blood Count 5.17 M/mcL (4.19-5.50); Red Cell Distribution Width 15.4 % (11.5-14.5); Segmented Neutrophils % 81.2 %; White Blood Count 7.7 K/mcL (4.3-11.1)
[2019-07-06 05:26] LABS: Potassium 3.6 mEq/L (3.5-5.1)
[2019-07-06] MEDS: STIOLTO RESPIMAT INHAL IH SCH (07:52)
[2019-07-06] MEDS: cefTRIAXone 1,000 MG in Water for inj. (sterile) 10 ML IVP SCH (08:27)
[2019-07-06] MEDS: Furosemide 40 MG/4 ML VIAL IVP SCH (08:29)
[2019-07-06] MEDS: predniSONE 10 MG TABLET PO SCH (08:29)
[2019-07-06] MEDS: Aspirin Enteric Coated 81 MG Tablet PO SCH (08:30)
[2019-07-06] MEDS: Clotrimazole 1% CRM 15 GM TUBE TP SCH (08:31)
[2019-07-06] MEDS: Metoprolol XL (24 HR) Succ 50 MG TAB.ER.24H PO SCH (08:31)
[2019-07-07 03:54] LABS: Basophils % 0.1 %; Eosinophils # 0.2 K/mcL (0.0-0.6); Eosinophils % 1.8 %; Hematocrit 42.4 % (37.5-50.1); Hemoglobin 13.6 g/dL (12.9-16.9); Immature Granulocytes % 0.9 % (0-4); Lymphocytes # 0.8 K/mcL (0.6-4.6); Lymphocytes % 8.7 %; Mean Corpuscular HGB Conc 32.1 g/dL (31.6-35.5); Mean Corpuscular Hemoglobin 27.9 pg (28.0-33.3); Mean Corpuscular Volume 87.1 fL (83.0-100.0); Mean Platelet Volume 10.1 fL (9.4-12.4); Monocytes # 0.9 K/mcL (0.0-1.3); Monocytes % 9.7 %; Platelet Count 193 K/mcL (140-400); Red Blood Count 4.87 M/mcL (4.19-5.50); Red Cell Distribution Width 15.3 % (11.5-14.5); Segmented Neutrophils % 78.8 %; White Blood Count 8.9 K/mcL (4.3-11.1)
[2019-07-07 04:14] LABS: BUN/Creatinine Ratio 27 (6-26); Blood Urea Nitrogen 71 mg/dL (8-23); Calcium 8.8 mg/dL (8.6-10.3); Carbon Dioxide 29 mEq/L (23-29); Chloride 100 mEq/L (98-107); Glucose 91 mg/dL (70-105); Osmolality,Calculated 314 (280-300); Potassium 3.3 mEq/L (3.5-5.1); Sodium 142 mEq/L (136-145); eGFR For African Americans 28 (> 60); eGFR For Non-African Americans 23 (> 60)
[2019-07-07] MEDS ORDERED: 0.9 % Sodium Chloride 250 ML IVC ONE ×2 (07:00→13:00)
[2019-07-07] MEDS: predniSONE 10 MG TABLET PO SCH (08:41)
[2019-07-07] MEDS: cefTRIAXone 1,000 MG in Water for inj. (sterile) 10 ML IVP SCH (08:42)
[2019-07-07] MEDS: Aspirin Enteric Coated 81 MG Tablet PO SCH (08:42)
[2019-07-07] MEDS: Metoprolol XL (24 HR) Succ 50 MG TAB.ER.24H PO SCH (08:42)
[2019-07-07] MEDS: Clotrimazole 1% CRM 15 GM TUBE TP SCH (08:43)
[2019-07-07] MEDS: STIOLTO RESPIMAT INHAL IH SCH (08:43)
[2019-07-07] MEDS: Ipratropium/Albuterol Neb 3 ML IH SCH ×3 (11:14→22:07)
[2019-07-07] MEDS ORDERED: Ampicillin/Sulbactam 3,000 MG in 0.9 % Sodium Chloride 100 ML IVPB SCH (12:00)
[2019-07-07] MEDS: Heparin 25,000 UNIT/250 ML D5W 25,000 UNIT/250 ML IV.SOLN IVC SCH (13:12)
[2019-07-07 14:06] LABS: C-Reactive Protein < 5 mg/L (Less than 10)
[2019-07-07] MEDS ORDERED: ISOVUE-370 200 ML INFUS..BTL ONE (15:49)
[2019-07-07] MEDS ORDERED: *HR* Heparin 10,000 UNIT/10 ML VIAL ONE (15:49)
[2019-07-07] MEDS ORDERED: Heparin 1,000 UNITS/500 mL 500 ML ONE (15:49)
[2019-07-07] MEDS ORDERED: 0.9 % Sodium Chloride 2,000 ML ONE (15:49)
[2019-07-07] MEDS ORDERED: Nitroglycerin 1,000 MCG/10 ML VIAL IV ONE (15:49)
[2019-07-07] MEDS ORDERED: *HR* FentaNYL (PF) 100 MCG/2 ML VIAL ONE (16:02)
[2019-07-07] MEDS ORDERED: *HR* Midazolam HCl 2 MG/2 ML VIAL ONE (16:02)
[2019-07-07] MEDS ORDERED: Verapamil 5 MG/2 ML VIAL ONE (16:15)
[2019-07-08] MEDS: Ipratropium/Albuterol Neb 3 ML IH SCH ×4 (03:45→22:24)
[2019-07-08 05:24] LABS: Calcium 8.6 mg/dL (8.6-10.3); Potassium 3.3 mEq/L (3.5-5.1)
[2019-07-08] MEDS: Heparin 25,000 UNIT/250 ML D5W 25,000 UNIT/250 ML IV.SOLN IVC SCH ×2 (07:48→15:09)
[2019-07-08] MEDS: Aspirin Enteric Coated 81 MG Tablet PO SCH (08:03)
[2019-07-08] MEDS: Metoprolol XL (24 HR) Succ 50 MG TAB.ER.24H PO SCH (08:03)
[2019-07-08] MEDS: predniSONE 10 MG TABLET PO SCH (08:03)
[2019-07-08] MEDS: cefTRIAXone 1,000 MG in 0.9 % Sodium Chloride Mini Bag 100 ML IVPB SCH (08:03)
[2019-07-08] MEDS: Clotrimazole 1% CRM 15 GM TUBE TP SCH (11:41)
[2019-07-08] MEDS ORDERED: Potassium Chloride Elixir 20 MEQ/15 ML UDC PO ONE (11:50)
[2019-07-08] MEDS ORDERED: *HR* Heparin 5,000 UNIT/ML VIAL IVP ONE (12:03)
[2019-07-08] MEDS ORDERED: *HR* Heparin 5,000 UNIT/ML VIAL IVP PRN ×2 (12:03)
[2019-07-08] MEDS ORDERED: Furosemide 40 MG TABLET PO SCH (12:30)
[2019-07-09] MEDS ORDERED: *HR* HYDROcodone/Acet 7.5/325 mg TABLET PO ONE (01:33)
[2019-07-09] MEDS: Ipratropium/Albuterol Neb 3 ML IH SCH ×4 (04:02→22:22)
[2019-07-09 04:31] LABS: Calcium 8.3 mg/dL (8.6-10.3); Potassium 3.7 mEq/L (3.5-5.1)
[2019-07-09 05:18] LABS: Hematocrit 37.3 % (37.5-50.1); Mean Corpuscular HGB Conc 31.1 g/dL (31.6-35.5); Mean Corpuscular Hemoglobin 27.7 pg (28.0-33.3); Mean Platelet Volume 10.5 fL (9.4-12.4); Platelet Count 163 K/mcL (140-400); Red Blood Count 4.19 M/mcL (4.19-5.50); Red Cell Distribution Width 15.8 % (11.5-14.5); White Blood Count 8.3 K/mcL (4.3-11.1)
[2019-07-09 05:27] LABS: Hemoglobin 11.6 g/dL (12.9-16.9)
[2019-07-09] MEDS: 0.9 % Sodium Chloride 250 ML IVC SCH ×3 (06:45→11:44)
[2019-07-09] MEDS ORDERED: Heparin 1,000 UNITS/500 mL 500 ML ONE (07:32)
[2019-07-09] MEDS ORDERED: Nitroglycerin 1,000 MCG/10 ML VIAL IV ONE (07:32)
[2019-07-09] MEDS ORDERED: *HR* Heparin 10,000 UNIT/10 ML VIAL ONE (07:32)
[2019-07-09] MEDS ORDERED: 0.9 % Sodium Chloride 1,000 ML ONE (07:32)
[2019-07-09] MEDS ORDERED: ISOVUE-370 200 ML INFUS..BTL ONE (07:32)
[2019-07-09] MEDS ORDERED: Verapamil 5 MG/2 ML VIAL ONE (07:43)
[2019-07-09] MEDS: cefTRIAXone 1,000 MG in 0.9 % Sodium Chloride Mini Bag 100 ML IVPB SCH (07:58)
[2019-07-09] MEDS: Aspirin Enteric Coated 81 MG Tablet PO SCH (07:59)
[2019-07-09] MEDS: predniSONE 10 MG TABLET PO SCH (07:59)
[2019-07-09] MEDS: Heparin 25,000 UNIT/250 ML D5W 25,000 UNIT/250 ML IV.SOLN IVC SCH (07:59)
[2019-07-09] MEDS: Metoprolol XL (24 HR) Succ 50 MG TAB.ER.24H PO SCH (08:00)
[2019-07-09] MEDS: Clotrimazole 1% CRM 15 GM TUBE TP SCH (08:00)
[2019-07-09] MEDS ORDERED: Acetaminophen 325 MG TABLET PO PRN (08:04)
[2019-07-09] MEDS ORDERED: *HR* Midazolam HCl 2 MG/2 ML VIAL ONE (08:27)
[2019-07-09 08:28] LABS: Magnesium 2.1 mg/dL (1.6-2.6)
[2019-07-09] MEDS ORDERED: *HR* FentaNYL (PF) 100 MCG/2 ML VIAL ONE (08:30)
[2019-07-09] MEDS: *HR* HYDROcodone/Acet 5/325 mg TABLET PO PRN ×2 (09:47→20:29)
[2019-07-09 12:04] LABS: INR 1.3; Prothrombin Time 14.6 Seconds (9.4-12.1)
[2019-07-09] MEDS: *HR* Heparin 5,000 UNIT/ML VIAL SQ SCH ×2 (14:58→20:30)
[2019-07-09] MEDS: hydrALAZINE 25 MG TABLET PO SCH ×2 (14:59→20:29)
[2019-07-09] MEDS ORDERED: hydrALAZINE 25 MG TABLET PO SCH (16:00)
[2019-07-09] MEDS: Amoxicillin/Clavulanate 500 MG TABLET PO SCH (16:44)
[2019-07-09] MEDS: carvediloL 6.25 MG TABLET PO SCH (16:44)
[2019-07-09] MEDS ORDERED: *HR* Warfarin 5 MG TABLET PO ONE (18:00)
[2019-07-09] MEDS ORDERED: Warfarin perPT PO PRN (18:00)
[2019-07-09] MEDS: Lactobacillus 1 EACH CAP.SPRINK PO SCH (20:29)
[2019-07-10] MEDS: *HR* HYDROcodone/Acet 5/325 mg TABLET PO PRN (03:51)
[2019-07-10] MEDS: Ipratropium/Albuterol Neb 3 ML IH SCH ×3 (04:04→16:25)
[2019-07-10 04:24] LABS: Basophils % 0.3 %; Eosinophils # 0.3 K/mcL (0.0-0.6); Eosinophils % 3.6 %; Hematocrit 35.1 % (37.5-50.1); Hemoglobin 10.9 g/dL (12.9-16.9); Immature Granulocytes % 1.1 % (0-4); Lymphocytes # 0.8 K/mcL (0.6-4.6); Lymphocytes % 10.9 %; Mean Corpuscular HGB Conc 31.1 g/dL (31.6-35.5); Mean Corpuscular Hemoglobin 27.9 pg (28.0-33.3); Mean Corpuscular Volume 89.8 fL (83.0-100.0); Mean Platelet Volume 10.4 fL (9.4-12.4); Monocytes # 0.6 K/mcL (0.0-1.3); Monocytes % 7.9 %; Neutrophils # 5.5 K/mcL (1.6-8.9); Platelet Count 137 K/mcL (140-400); Red Blood Count 3.91 M/mcL (4.19-5.50); Red Cell Distribution Width 15.7 % (11.5-14.5); Segmented Neutrophils % 76.2 %; White Blood Count 7.2 K/mcL (4.3-11.1)
[2019-07-10 04:27] LABS: INR 1.1; Prothrombin Time 12.7 Seconds (9.4-12.1)
[2019-07-10 04:43] LABS: Calcium 8.5 mg/dL (8.6-10.3); Potassium 4.6 mEq/L (3.5-5.1)
[2019-07-10] MEDS: *HR* Heparin 5,000 UNIT/ML VIAL SQ SCH ×2 (05:03→16:34)
[2019-07-10] MEDS: hydrALAZINE 25 MG TABLET PO SCH ×2 (08:34→16:47)
[2019-07-10] MEDS: carvediloL 6.25 MG TABLET PO SCH (08:34)
[2019-07-10] MEDS: Amoxicillin/Clavulanate 500 MG TABLET PO SCH ×2 (08:34→16:47)
[2019-07-10] MEDS: Aspirin Enteric Coated 81 MG Tablet PO SCH (08:34)
[2019-07-10] MEDS: predniSONE 10 MG TABLET PO SCH (08:34)
[2019-07-10] MEDS: Clotrimazole 1% CRM 15 GM TUBE TP SCH (08:35)
[2019-07-10] MEDS: Lactobacillus 1 EACH CAP.SPRINK PO SCH (08:35)
[2019-07-10] MEDS ORDERED: Furosemide 20 MG TABLET PO SCH (09:00)
[2019-07-10] MEDS ORDERED: Isosorbide MONOnitrate (24 HR) 30 MG TAB.ER.24H PO SCH (09:00)
[2019-07-10 11:14] VITALS: BP 110/65
[2019-07-10] MEDS ORDERED: carvediloL 6.25 MG TABLET PO SCH (17:00)
[2019-07-10] MEDS ORDERED: *HR* Warfarin 5 MG TABLET PO ONE (18:00)
== END 2019-07-10 17:23 | disposition home health service (06) | DRG 264 ==
LOC: EMEROOARM 01:33 → 3ANU 01:33 → 2ANU 07-07 18:16
PROVIDERS: ADMIT Family Medicine; ATTEND Internal Medicine

== ENCOUNTER 2019-07-15 10:46 | Observation (INO) ==
[2019-07-15 11:26] LABS: INR 4.3
[2019-07-15 11:30] LABS: Basophils % 0.3 %; Eosinophils # 0.4 K/mcL (0.0-0.6); Eosinophils % 5.4 %; Hematocrit 31.9 % (37.5-50.1); Hemoglobin 10.3 g/dL (12.9-16.9); Immature Granulocytes % 0.6 % (0-4); Lymphocytes # 0.9 K/mcL (0.6-4.6); Lymphocytes % 13.1 %; Mean Corpuscular HGB Conc 32.3 g/dL (31.6-35.5); Mean Corpuscular Hemoglobin 28.1 pg (28.0-33.3); Mean Corpuscular Volume 87.2 fL (83.0-100.0); Mean Platelet Volume 10.6 fL (9.4-12.4); Monocytes # 0.5 K/mcL (0.0-1.3); Neutrophils # 4.7 K/mcL (1.6-8.9); Platelet Count 139 K/mcL (140-400); Red Blood Count 3.66 M/mcL (4.19-5.50); Red Cell Distribution Width 16.6 % (11.5-14.5); Segmented Neutrophils % 72.6 %; White Blood Count 6.5 K/mcL (4.3-11.1)
[2019-07-15 11:31] LABS: Prothrombin Time 48.7 Seconds (9.4-12.1)
[2019-07-15 11:49] LABS: Troponin I 0.04 ng/mL (< 0.04)
[2019-07-15 12:27] LABS: Albumin 2.9 g/dL (3.5-5.7); Bilirubin,Direct 0.8 mg/dL (0.0-0.2); Bilirubin,Indirect 0.7 mg/dL (0.0-1.0); Bilirubin,Total 1.5 mg/dL (0.3-1.0); Calcium 8.2 mg/dL (8.6-10.3); Globulin 2.8 g/dL (2.4-3.5); Magnesium 2.2 mg/dL (1.6-2.6); Potassium 4.3 mEq/L (3.5-5.1); Total Protein 5.7 g/dL (6.4-8.9)
[2019-07-15 12:39] LABS: Bilirubin,Urine Negative (Negative); Blood,Urine Negative (Negative); Clarity,Urine Clear (Clear); Color,Urine Yellow (Yellow); Glucose,Urine (UA) Normal (Normal); Ketones,Urine Negative (Negative); Leukocyte Esterase,Urine Trace (Negative); Nitrite,Urine Negative (Negative); Protein,Urine Trace mg/dL (Neg-Trace); Specific Gravity,Urine 1.018 (1.010-1.025); Urobilinogen,Urine Normal (Normal)
[2019-07-15 12:42] LABS: Bacteria,Urine None Seen per hpf (None-Few); Hyaline Casts,Urine None Seen per lpf (None-Few); RBC,Urine 0-3 per hpf (0-3); Squamous Epithelial Cell,Urine None Seen per lpf (None-Few); WBC,Urine 0-3 per hpf (0-3)
[2019-07-15] MEDS ORDERED: Morphine Sulfate 2 MG/ML SYRINGE IVP ONE (13:07)
[2019-07-15] MEDS ORDERED: *HR* HYDROcodone/Acet 5/325 mg TABLET PO PRN (16:41)
[2019-07-15] MEDS ORDERED: Clobetasol Propionate 0.05% 15 GM Cream Tube TP PRN (16:42)
[2019-07-15] MEDS ORDERED: Acetaminophen 325 MG TABLET PO PRN ×2 (16:42→18:30)
[2019-07-15] MEDS ORDERED: carvediloL 25 MG TABLET PO SCH (17:00)
[2019-07-15] MEDS ORDERED: Warfarin perPT PO PRN (18:00)
[2019-07-15] MEDS ORDERED: Methyl Salicylate/Menthol 28 GM TUBE TP PRN (18:31)
[2019-07-15] MEDS: hydrALAZINE 25 MG TABLET PO SCH (20:09)
[2019-07-15] MEDS ORDERED: Methyl Salicylate/Menthol 57 APPL/57 GM TUBE TP PRN (20:51)
[2019-07-15 21:59] LABS: INR 4.1
[2019-07-15 22:02] LABS: Activated Partial Thrombo Time 67.5 Seconds (26.0-36.0)
[2019-07-15 22:14] LABS: Prothrombin Time 46.9 Seconds (9.4-12.1)
[2019-07-16 07:03] LABS: INR 3.8
[2019-07-16 07:04] LABS: Prothrombin Time 43.5 Seconds (9.4-12.1)
[2019-07-16 07:16] LABS: Calcium 8.4 mg/dL (8.6-10.3); Potassium 4.4 mEq/L (3.5-5.1)
[2019-07-16 07:23] LABS: Basophils % 0.2 %; Eosinophils # 0.3 K/mcL (0.0-0.6); Eosinophils % 6.3 %; Hematocrit 28.7 % (37.5-50.1); Hemoglobin 9.2 g/dL (12.9-16.9); Immature Granulocytes % 0.4 % (0-4); Lymphocytes # 0.7 K/mcL (0.6-4.6); Lymphocytes % 12.5 %; Mean Corpuscular HGB Conc 32.1 g/dL (31.6-35.5); Mean Corpuscular Hemoglobin 28.2 pg (28.0-33.3); Mean Platelet Volume 10.4 fL (9.4-12.4); Monocytes # 0.5 K/mcL (0.0-1.3); Monocytes % 9.8 %; Neutrophils # 3.7 K/mcL (1.6-8.9); Platelet Count 118 K/mcL (140-400); Red Blood Count 3.26 M/mcL (4.19-5.50); Red Cell Distribution Width 16.7 % (11.5-14.5); Segmented Neutrophils % 70.8 %; White Blood Count 5.3 K/mcL (4.3-11.1)
[2019-07-16] MEDS ORDERED: Isosorbide MONOnitrate (24 HR) 30 MG TAB.ER.24H PO SCH (09:00)
[2019-07-16] MEDS ORDERED: Furosemide 20 MG TABLET PO SCH (09:00)
[2019-07-16] MEDS ORDERED: Aspirin Enteric Coated 81 MG Tablet PO SCH (09:00)
[2019-07-16] MEDS ORDERED: carvediloL 6.25 MG TABLET PO SCH (09:50)
[2019-07-16] MEDS: hydrALAZINE 25 MG TABLET PO SCH ×2 (09:58→15:30)
[2019-07-16 16:20] VITALS: BP 116/63
== END 2019-07-16 16:24 | disposition home or self-care (01) ==
LOC: 2ANU 10:46 → EMEROOARM 10:46 → SUATTDRO 16:01 → 2ANU 16:46
PROVIDERS: ADMIT Internal Medicine; ATTEND Internal Medicine

== ENCOUNTER 2020-01-15 09:39 | Inpatient (IN) ==
[2020-01-15] MEDS ORDERED: ceFAZolin 1,000 MG in Water for inj. (sterile) 10 ML IVP ONE (10:07)
[2020-01-15 10:24] LABS: Basophils % 0.1 %
[2020-01-15 10:26] LABS: Immature Platelets 6.2 % (1.1-6.1); Lymphocytes % 1.8 %; Red Cell Distribution Width 16.8 % (11.5-14.5)
[2020-01-15 10:33] LABS: Hematocrit 33.9 % (37.5-50.1); Immature Granulocytes % 1.3 % (0-4); Lymphocytes # 0.2 K/mcL (0.6-4.6); Mean Corpuscular HGB Conc 32.4 g/dL (31.6-35.5); Mean Corpuscular Hemoglobin 27.4 pg (28.0-33.3); Mean Corpuscular Volume 84.3 fL (83.0-100.0); Mean Platelet Volume 11.6 fL (9.4-12.4); Monocytes # 0.5 K/mcL (0.0-1.3); Monocytes % 3.6 %; Neutrophils # 11.7 K/mcL (1.6-8.9); Platelet Count 131 K/mcL (140-400); Red Blood Count 4.02 M/mcL (4.19-5.50); Segmented Neutrophils % 93.2 %; White Blood Count 12.5 K/mcL (4.3-11.1)
[2020-01-15 10:36] LABS: INR 2.7; Prothrombin Time 31.1 Seconds (9.4-12.1)
[2020-01-15 10:38] LABS: Activated Partial Thrombo Time 43.3 Seconds (26.0-36.0)
[2020-01-15 11:37] LABS: Albumin 3.2 g/dL (3.5-5.7); Bilirubin,Total 5.8 mg/dL (0.3-1.0); Calcium 9.1 mg/dL (8.6-10.3); Globulin 3.2 g/dL (2.4-3.5); Potassium 3.4 mEq/L (3.5-5.1); Total Protein 6.4 g/dL (6.4-8.9)
[2020-01-15] MEDS ORDERED: Naloxone 0.4 MG/ML INJ IVP PRN (13:54)
[2020-01-15] MEDS ORDERED: Vancomycin 1,750 MG in 0.9 % Sodium Chloride 250 ML IVPB SCH (14:00)
[2020-01-15] MEDS ORDERED: Vancomycin 1,750 MG/517.5 ML IV.SOLN IVPB ONE (14:17)
[2020-01-15] MEDS ORDERED: *HR* LORazepam 0.5 MG TABLET PO ONE (14:47)
[2020-01-15] MEDS ORDERED: *HR* LORazepam 2 MG/ML VIAL IVP ONE (14:54)
[2020-01-15] MEDS ORDERED: 0.9 % Sodium Chloride 1,000 ML IVC SCH (15:15)
[2020-01-15] MEDS ORDERED: Piperacillin/Tazobactam 3.375 GM in Water for inj. (sterile) 20 ML IVP ONE (16:07)
[2020-01-15] MEDS: Piperacillin/Tazobactam 3.375 GM in 0.9 % Sodium Chloride Mini Bag 100 ML IVPB SCH ×2 (16:07→23:06)
[2020-01-15] MEDS ORDERED: Water for inj. (sterile) 20 ML IV ONE (16:12)
[2020-01-15] MEDS: hydrALAZINE 25 MG TABLET PO SCH ×2 (17:15→23:07)
[2020-01-15] MEDS ORDERED: Warfarin perPT PO PRN (18:00)
[2020-01-15 22:08] LABS: Bacteria,Urine Few per hpf (None-Few); Bilirubin,Urine Small (Negative); Blood,Urine Trace (Negative); Clarity,Urine Clear (Clear); Color,Urine Yellow (Yellow); Glucose,Urine (UA) Normal (Normal); Ketones,Urine Negative (Negative); Leukocyte Esterase,Urine Negative (Negative); Mucus,Urine Few per lpf (None-Few); Nitrite,Urine Negative (Negative); Protein,Urine 70 mg/dL (Neg-Trace); RBC,Urine 0-3 per hpf (0-3); Specific Gravity,Urine 1.021 (1.010-1.025); Squamous Epithelial Cell,Urine Few per hpf (None-Few)
[2020-01-15] MEDS: Gentamicin Oint 15 GM TUBE TP SCH (23:00)
[2020-01-16 00:40] LABS: Basophils % 0.2 %; Hematocrit 32.3 % (37.5-50.1); Hemoglobin 10.5 g/dL (12.9-16.9); Immature Granulocytes % 1.1 % (0-4); Lymphocytes # 0.3 K/mcL (0.6-4.6); Lymphocytes % 2.1 %; Mean Corpuscular HGB Conc 32.5 g/dL (31.6-35.5); Mean Corpuscular Hemoglobin 27.1 pg (28.0-33.3); Mean Corpuscular Volume 83.5 fL (83.0-100.0); Mean Platelet Volume 10.9 fL (9.4-12.4); Monocytes # 0.5 K/mcL (0.0-1.3); Monocytes % 3.8 %; Neutrophils # 10.9 K/mcL (1.6-8.9); Platelet Count 117 K/mcL (140-400); Red Blood Count 3.87 M/mcL (4.19-5.50); Red Cell Distribution Width 16.9 % (11.5-14.5); Segmented Neutrophils % 92.8 %; White Blood Count 11.7 K/mcL (4.3-11.1)
[2020-01-16 00:44] LABS: INR 3.6; Prothrombin Time 41.3 Seconds (9.4-12.1)
[2020-01-16 01:02] LABS: Albumin 2.9 g/dL (3.5-5.7); Albumin/Globulin Ratio 0.9 (1.1-2.2); Bilirubin,Total 5.7 mg/dL (0.3-1.0); Calcium 8.4 mg/dL (8.6-10.3); Globulin 3.1 g/dL (2.4-3.5); Phosphorous 2.5 mg/dL (2.7-4.5)
[2020-01-16] MEDS: Piperacillin/Tazobactam 3.375 GM in 0.9 % Sodium Chloride Mini Bag 100 ML IVPB SCH ×3 (06:51→22:36)
[2020-01-16] MEDS ORDERED: Furosemide 20 MG TABLET PO SCH (09:00)
[2020-01-16] MEDS: hydrALAZINE 25 MG TABLET PO SCH ×3 (09:14→22:35)
[2020-01-16] MEDS: Aspirin Enteric Coated 81 MG Tablet PO SCH (09:14)
[2020-01-16] MEDS: Isosorbide MONOnitrate (24 HR) 30 MG TAB.ER.24H PO SCH (09:14)
[2020-01-16] MEDS: Fenofibrate 54 MG TABLET PO SCH (09:14)
[2020-01-16] MEDS: Metoprolol XL (24 HR) Succ 50 MG TAB.ER.24H PO SCH (09:14)
[2020-01-16] MEDS ORDERED: Potassium Chloride Elixir 20 MEQ/15 ML UDC PO ONE (11:20)
[2020-01-16] MEDS ORDERED: Acetaminophen 325 MG TABLET PO PRN (11:20)
[2020-01-16] MEDS: Gentamicin Oint 15 GM TUBE TP SCH ×3 (12:07→22:37)
[2020-01-16] MEDS ORDERED: Vancomycin 1,750 MG/517.5 ML IV.SOLN IVPB SCH (15:00)
[2020-01-16] MEDS ORDERED: Vancomycin 1,500 MG/265 ML IV.SOLN IVPB SCH (15:00)
[2020-01-17] MEDS: Piperacillin/Tazobactam 3.375 GM in 0.9 % Sodium Chloride Mini Bag 100 ML IVPB SCH ×3 (04:43→22:07)
[2020-01-17 07:21] LABS: Hematocrit 31.5 % (37.5-50.1); Hemoglobin 10.3 g/dL (12.9-16.9); Mean Corpuscular HGB Conc 32.7 g/dL (31.6-35.5); Mean Corpuscular Hemoglobin 27.2 pg (28.0-33.3); Mean Corpuscular Volume 83.1 fL (83.0-100.0); Mean Platelet Volume 10.7 fL (9.4-12.4); Platelet Count 126 K/mcL (140-400); Red Blood Count 3.79 M/mcL (4.19-5.50); Red Cell Distribution Width 17.2 % (11.5-14.5); White Blood Count 13.1 K/mcL (4.3-11.1)
[2020-01-17 07:27] LABS: INR 5.6; Prothrombin Time 63.7 Seconds (9.4-12.1)
[2020-01-17 07:40] LABS: Calcium 8.8 mg/dL (8.6-10.3); Phosphorous 2.5 mg/dL (2.7-4.5)
[2020-01-17 07:42] LABS: Albumin 2.8 g/dL (3.5-5.7); Albumin/Globulin Ratio 0.9 (1.1-2.2); Bilirubin,Direct 4.8 mg/dL (0.0-0.2); Bilirubin,Indirect 2.1 mg/dL (0.0-1.0); Bilirubin,Total 6.9 mg/dL (0.3-1.0); Globulin 3.2 g/dL (2.4-3.5)
[2020-01-17] MEDS ORDERED: Potassium Chloride Elixir 20 MEQ/15 ML UDC PO ONE (07:44)
[2020-01-17] MEDS: Fenofibrate 54 MG TABLET PO SCH (08:19)
[2020-01-17] MEDS: hydrALAZINE 25 MG TABLET PO SCH ×3 (08:19→20:42)
[2020-01-17] MEDS: Aspirin Enteric Coated 81 MG Tablet PO SCH (08:19)
[2020-01-17] MEDS: Metoprolol XL (24 HR) Succ 50 MG TAB.ER.24H PO SCH (08:19)
[2020-01-17] MEDS: Lactobacillus 1 EACH CAP.SPRINK PO SCH (08:19)
[2020-01-17] MEDS: Isosorbide MONOnitrate (24 HR) 30 MG TAB.ER.24H PO SCH (08:19)
[2020-01-17] MEDS ORDERED: Albumin 25% 25gram/100mL 25 GM/100 ML IV.SOLN IVC SCH (08:30)
[2020-01-17] MEDS ORDERED: Albumin 25% 25gram/100mL 25 GM/100 ML IV.SOLN IVPB ONE (08:50)
[2020-01-17] MEDS ORDERED: Furosemide 20 MG/2 ML VIAL IVP SCH (09:00)
[2020-01-17] MEDS ORDERED: Furosemide 40 MG/4 ML VIAL IVP ONE (11:00)
[2020-01-17] MEDS: Gentamicin Oint 15 GM TUBE TP SCH ×2 (18:36→20:43)
[2020-01-18 01:11] LABS: Basophils % 0.2 %; Eosinophils # 0.2 K/mcL (0.0-0.6); Eosinophils % 1.6 %; Hematocrit 32.6 % (37.5-50.1); Hemoglobin 10.6 g/dL (12.9-16.9); Immature Granulocytes % 1.1 % (0-4); Lymphocytes # 0.7 K/mcL (0.6-4.6); Lymphocytes % 5.2 %; Mean Corpuscular HGB Conc 32.5 g/dL (31.6-35.5); Mean Corpuscular Hemoglobin 26.9 pg (28.0-33.3); Mean Corpuscular Volume 82.7 fL (83.0-100.0); Monocytes # 0.7 K/mcL (0.0-1.3); Monocytes % 5.2 %; Neutrophils # 11.1 K/mcL (1.6-8.9); Platelet Count 154 K/mcL (140-400); Red Blood Count 3.94 M/mcL (4.19-5.50); Red Cell Distribution Width 17.2 % (11.5-14.5); Segmented Neutrophils % 86.7 %; White Blood Count 12.8 K/mcL (4.3-11.1)
[2020-01-18 01:21] LABS: INR 5.3
[2020-01-18 01:30] LABS: Albumin/Globulin Ratio 0.9 (1.1-2.2); Bilirubin,Direct 4.8 mg/dL (0.0-0.2); Bilirubin,Indirect 2.3 mg/dL (0.0-1.0); Bilirubin,Total 7.1 mg/dL (0.3-1.0); Calcium 8.7 mg/dL (8.6-10.3); Globulin 3.3 g/dL (2.4-3.5); Potassium 3.6 mEq/L (3.5-5.1); Total Protein 6.3 g/dL (6.4-8.9)
[2020-01-18] MEDS: Piperacillin/Tazobactam 3.375 GM in 0.9 % Sodium Chloride Mini Bag 100 ML IVPB SCH ×3 (06:15→22:34)
[2020-01-18] MEDS ORDERED: Albumin 25% 25gram/100mL 25 GM/100 ML IV.SOLN IVPB ONE (09:48)
[2020-01-18] MEDS: Aspirin Enteric Coated 81 MG Tablet PO SCH (10:00)
[2020-01-18] MEDS: Fenofibrate 54 MG TABLET PO SCH (10:00)
[2020-01-18] MEDS: Lactobacillus 1 EACH CAP.SPRINK PO SCH (10:00)
[2020-01-18] MEDS: hydrALAZINE 25 MG TABLET PO SCH ×3 (11:07→21:46)
[2020-01-18] MEDS: Isosorbide MONOnitrate (24 HR) 30 MG TAB.ER.24H PO SCH (11:08)
[2020-01-18] MEDS: Metoprolol XL (24 HR) Succ 50 MG TAB.ER.24H PO SCH (11:08)
[2020-01-18] MEDS ORDERED: Furosemide 40 MG/4 ML VIAL IVP ONE (11:30)
[2020-01-18 11:45] LABS: Hepatitis B Surface Antigen Nonreactive (Nonreactive)
[2020-01-18 12:14] LABS: Hepatitis B Core IgM Nonreactive (Nonreactive)
[2020-01-18 12:15] LABS: Hepatitis A Antibody IgM Nonreactive (Nonreactive); Hepatitis C Virus Antibody Nonreactive (Nonreactive)
[2020-01-18] MEDS: Spironolactone 25 MG TABLET PO SCH (15:06)
[2020-01-18] MEDS: Gentamicin Oint 15 GM TUBE TP SCH ×2 (17:05→21:46)
[2020-01-18] MEDS: Linezolid 600 MG TABLET PO SCH (20:38)
[2020-01-19] MEDS: Piperacillin/Tazobactam 3.375 GM in 0.9 % Sodium Chloride Mini Bag 100 ML IVPB SCH ×4 (01:16→23:45)
[2020-01-19 03:43] LABS: Hematocrit 34.1 % (37.5-50.1); Mean Corpuscular HGB Conc 32.3 g/dL (31.6-35.5); Mean Corpuscular Hemoglobin 26.6 pg (28.0-33.3); Mean Corpuscular Volume 82.4 fL (83.0-100.0); Mean Platelet Volume 10.5 fL (9.4-12.4); Platelet Count 194 K/mcL (140-400); Red Blood Count 4.14 M/mcL (4.19-5.50); Red Cell Distribution Width 17.2 % (11.5-14.5); White Blood Count 10.7 K/mcL (4.3-11.1)
[2020-01-19 03:57] LABS: INR 4.4; Prothrombin Time 50.4 Seconds (9.4-12.1)
[2020-01-19 04:06] LABS: Albumin 3.3 g/dL (3.5-5.7); Bilirubin,Direct 5.7 mg/dL (0.0-0.2); Bilirubin,Indirect 2.7 mg/dL (0.0-1.0); Bilirubin,Total 8.4 mg/dL (0.3-1.0); Calcium 9.3 mg/dL (8.6-10.3); Globulin 3.4 g/dL (2.4-3.5); Potassium 3.5 mEq/L (3.5-5.1); Total Protein 6.7 g/dL (6.4-8.9)
[2020-01-19] MEDS: Isosorbide MONOnitrate (24 HR) 30 MG TAB.ER.24H PO SCH (09:02)
[2020-01-19] MEDS: Spironolactone 25 MG TABLET PO SCH (09:02)
[2020-01-19] MEDS: hydrALAZINE 25 MG TABLET PO SCH ×3 (09:02→20:17)
[2020-01-19] MEDS: Metoprolol XL (24 HR) Succ 50 MG TAB.ER.24H PO SCH (09:02)
[2020-01-19] MEDS: Fenofibrate 54 MG TABLET PO SCH (09:02)
[2020-01-19] MEDS: Lactobacillus 1 EACH CAP.SPRINK PO SCH (09:02)
[2020-01-19] MEDS: Aspirin Enteric Coated 81 MG Tablet PO SCH (09:02)
[2020-01-19] MEDS: Linezolid 600 MG TABLET PO SCH ×2 (09:02→20:17)
[2020-01-19] MEDS: Gentamicin Oint 15 GM TUBE TP SCH ×2 (10:37→21:31)
[2020-01-20 03:37] LABS: Hematocrit 31.8 % (37.5-50.1); Hemoglobin 10.6 g/dL (12.9-16.9); Mean Corpuscular HGB Conc 33.3 g/dL (31.6-35.5); Mean Corpuscular Hemoglobin 26.8 pg (28.0-33.3); Mean Corpuscular Volume 80.3 fL (83.0-100.0); Mean Platelet Volume 10.5 fL (9.4-12.4); Platelet Count 217 K/mcL (140-400); Red Blood Count 3.96 M/mcL (4.19-5.50); Red Cell Distribution Width 16.9 % (11.5-14.5); White Blood Count 7.7 K/mcL (4.3-11.1)
[2020-01-20 03:46] LABS: INR 4.4; Prothrombin Time 50.4 Seconds (9.4-12.1)
[2020-01-20 03:55] LABS: Albumin/Globulin Ratio 0.9 (1.1-2.2); Bilirubin,Direct 5.2 mg/dL (0.0-0.2); Bilirubin,Indirect 2.5 mg/dL (0.0-1.0); Bilirubin,Total 7.7 mg/dL (0.3-1.0); Calcium 8.7 mg/dL (8.6-10.3); Globulin 3.2 g/dL (2.4-3.5); Potassium 3.9 mEq/L (3.5-5.1); Total Protein 6.2 g/dL (6.4-8.9)
[2020-01-20 07:10] LABS: ANA IgG by ELISA NONE DETECTED (None Detected); F-Actin (sm muscle) Ab IgG 17 Units (0-19)
[2020-01-20 07:11] LABS: AFP Tumor Marker Non-Pregnant 1 ng/mL (0-9)
[2020-01-20 07:18] LABS: Immunoglobulin A (CELIAC) 500 mg/dL (68-408)
[2020-01-20] MEDS: Fenofibrate 54 MG TABLET PO SCH (08:38)
[2020-01-20] MEDS: Spironolactone 25 MG TABLET PO SCH (08:38)
[2020-01-20] MEDS: Lactobacillus 1 EACH CAP.SPRINK PO SCH (08:38)
[2020-01-20] MEDS: Aspirin Enteric Coated 81 MG Tablet PO SCH (08:38)
[2020-01-20] MEDS: Linezolid 600 MG TABLET PO SCH (08:39)
[2020-01-20] MEDS: hydrALAZINE 25 MG TABLET PO SCH ×3 (08:39→19:58)
[2020-01-20] MEDS: Piperacillin/Tazobactam 3.375 GM in 0.9 % Sodium Chloride Mini Bag 100 ML IVPB SCH ×2 (08:39→15:40)
[2020-01-20] MEDS: Isosorbide MONOnitrate (24 HR) 30 MG TAB.ER.24H PO SCH (08:39)
[2020-01-20] MEDS: Metoprolol XL (24 HR) Succ 50 MG TAB.ER.24H PO SCH (08:39)
[2020-01-20] MEDS: Gentamicin Oint 15 GM TUBE TP SCH ×2 (08:46→20:00)
[2020-01-20 10:22] LABS: Serine Protease-3 Antibody 4 AU/mL (0-19); Tissue Transglutaminase IgA <2 U/mL (0-3)
[2020-01-20] MEDS: Furosemide 20 MG TABLET PO SCH (15:39)
[2020-01-21] MEDS: Piperacillin/Tazobactam 3.375 GM in 0.9 % Sodium Chloride Mini Bag 100 ML IVPB SCH ×2 (00:37→07:37)
[2020-01-21 03:44] LABS: INR 4.8; Prothrombin Time 54.4 Seconds (9.4-12.1)
[2020-01-21 04:37] LABS: Alpha 2 Globulin (PEP) 0.65 g/dL (0.48-1.05); Beta Globulin (PEP) 0.87 g/dL (0.48-1.10)
[2020-01-21] MEDS ORDERED: *HR* Phytonadione 5 MG TABLET PO ONE (07:26)
[2020-01-21] MEDS: Fenofibrate 54 MG TABLET PO SCH (07:35)
[2020-01-21 07:36] LABS: Basophils % 0.2 %; Eosinophils # 0.2 K/mcL (0.0-0.6); Eosinophils % 2.6 %; Hematocrit 32.5 % (37.5-50.1); Hemoglobin 10.7 g/dL (12.9-16.9); Immature Granulocytes % 1.7 % (0-4); Lymphocytes # 0.6 K/mcL (0.6-4.6); Lymphocytes % 6.9 %; Mean Corpuscular HGB Conc 32.9 g/dL (31.6-35.5); Mean Corpuscular Hemoglobin 26.8 pg (28.0-33.3); Mean Corpuscular Volume 81.5 fL (83.0-100.0); Mean Platelet Volume 10.5 fL (9.4-12.4); Monocytes # 0.6 K/mcL (0.0-1.3); Monocytes % 6.3 %; Neutrophils # 7.1 K/mcL (1.6-8.9); Platelet Count 213 K/mcL (140-400); Red Blood Count 3.99 M/mcL (4.19-5.50); Red Cell Distribution Width 17.1 % (11.5-14.5); Segmented Neutrophils % 82.3 %; White Blood Count 8.7 K/mcL (4.3-11.1)
[2020-01-21] MEDS: Aspirin Enteric Coated 81 MG Tablet PO SCH (07:36)
[2020-01-21] MEDS: Spironolactone 25 MG TABLET PO SCH (07:36)
[2020-01-21] MEDS: hydrALAZINE 25 MG TABLET PO SCH ×3 (07:37→21:23)
[2020-01-21] MEDS: Isosorbide MONOnitrate (24 HR) 30 MG TAB.ER.24H PO SCH (07:37)
[2020-01-21] MEDS: Metoprolol XL (24 HR) Succ 50 MG TAB.ER.24H PO SCH (07:37)
[2020-01-21] MEDS: Lactobacillus 1 EACH CAP.SPRINK PO SCH (07:37)
[2020-01-21] MEDS: Furosemide 20 MG TABLET PO SCH (07:37)
[2020-01-21] MEDS: Gentamicin Oint 15 GM TUBE TP SCH ×2 (07:41→21:26)
[2020-01-21 07:45] LABS: Calcium 8.6 mg/dL (8.6-10.3); Magnesium 2.1 mg/dL (1.6-2.6); Phosphorous 3.5 mg/dL (2.7-4.5); Potassium 3.9 mEq/L (3.5-5.1)
[2020-01-21 09:45] LABS: Fibrinogen 412 mg/dL (169-393)
[2020-01-21 09:55] LABS: D-Dimer 885 ng/mLFEU (0-500)
[2020-01-21 12:34] LABS: IFE Reflexed NOT DONE
[2020-01-21] MEDS: Amoxicillin/Clavulanate 500 MG TABLET PO SCH (17:04)
[2020-01-22 06:15] LABS: INR 2.7
[2020-01-22 06:18] LABS: Hematocrit 32.6 % (37.5-50.1); Hemoglobin 10.8 g/dL (12.9-16.9); Mean Corpuscular HGB Conc 33.1 g/dL (31.6-35.5); Mean Corpuscular Hemoglobin 26.9 pg (28.0-33.3); Mean Corpuscular Volume 81.3 fL (83.0-100.0); Platelet Count 199 K/mcL (140-400); Red Blood Count 4.01 M/mcL (4.19-5.50); White Blood Count 7.7 K/mcL (4.3-11.1)
[2020-01-22 06:19] LABS: Basophils % 0.4 %; Eosinophils # 0.2 K/mcL (0.0-0.6); Eosinophils % 2.5 %; Immature Granulocytes % 2.3 % (0-4); Lymphocytes # 0.7 K/mcL (0.6-4.6); Lymphocytes % 8.5 %; Mean Platelet Volume 9.9 fL (9.4-12.4); Monocytes # 0.5 K/mcL (0.0-1.3); Monocytes % 6.5 %; Neutrophils # 6.1 K/mcL (1.6-8.9); Segmented Neutrophils % 79.8 %
[2020-01-22 06:28] LABS: Calcium 8.8 mg/dL (8.6-10.3); Magnesium 2.1 mg/dL (1.6-2.6); Phosphorous 3.9 mg/dL (2.7-4.5); Potassium 4.1 mEq/L (3.5-5.1)
[2020-01-22 06:53] VITALS: BP 126/98
[2020-01-22] MEDS: Fenofibrate 54 MG TABLET PO SCH (08:18)
[2020-01-22] MEDS: Metoprolol XL (24 HR) Succ 50 MG TAB.ER.24H PO SCH (08:18)
[2020-01-22] MEDS: Amoxicillin/Clavulanate 500 MG TABLET PO SCH (08:18)
[2020-01-22] MEDS: Isosorbide MONOnitrate (24 HR) 30 MG TAB.ER.24H PO SCH (08:18)
[2020-01-22] MEDS: Aspirin Enteric Coated 81 MG Tablet PO SCH (08:18)
[2020-01-22] MEDS: Lactobacillus 1 EACH CAP.SPRINK PO SCH (08:18)
[2020-01-22] MEDS: Furosemide 20 MG TABLET PO SCH (08:18)
[2020-01-22] MEDS: hydrALAZINE 25 MG TABLET PO SCH (08:18)
[2020-01-22] MEDS: Spironolactone 25 MG TABLET PO SCH (08:18)
[2020-01-22 08:28] LABS: Albumin 2.9 g/dL (3.5-5.7); Albumin/Globulin Ratio 0.9 (1.1-2.2); Bilirubin,Direct 5.4 mg/dL (0.0-0.2); Bilirubin,Indirect 2.9 mg/dL (0.0-1.0); Bilirubin,Total 8.3 mg/dL (0.3-1.0); Globulin 3.4 g/dL (2.4-3.5); Total Protein 6.3 g/dL (6.4-8.9)
[2020-01-22] MEDS: Gentamicin Oint 15 GM TUBE TP SCH (11:47)
[2020-01-22 16:20] LABS: Saccharomyces cerevisiae IgA 7.6 Units (0.0-24.9)
== END 2020-01-22 12:17 | disposition home or self-care (01) | DRG 871 ==
LOC: EMEROOARM 09:39 → 2ANU 09:39 → SUATTDRO 16:57 → 2ANU 17:48
PROVIDERS: ADMIT Internal Medicine; ATTEND Internal Medicine

== ENCOUNTER 2020-12-08 12:02 | Observation (INO) ==
[2020-12-08] MEDS ORDERED: Oxymetazoline Nasal SPRAY BOTTLE NS STA (12:55)
[2020-12-08 12:58] LABS: Basophils % 0.6 %; Eosinophils # 0.1 K/mcL (0.0-0.6); Eosinophils % 1.9 %; Hematocrit 31.2 % (37.5-50.1); Hemoglobin 10.3 g/dL (12.9-16.9); Immature Granulocytes % 0.6 % (0-4); Lymphocytes # 0.5 K/mcL (0.6-4.6); Lymphocytes % 7.3 %; Mean Corpuscular Hemoglobin 28.8 pg (28.0-33.3); Mean Corpuscular Volume 87.2 fL (83.0-100.0); Mean Platelet Volume 9.2 fL (9.4-12.4); Monocytes # 0.8 K/mcL (0.0-1.3); Monocytes % 10.8 %; Neutrophils # 5.7 K/mcL (1.6-8.9); Platelet Count 161 K/mcL (140-400); Red Blood Count 3.58 M/mcL (4.19-5.50); Red Cell Distribution Width 13.8 % (11.5-14.5); Segmented Neutrophils % 78.8 %; White Blood Count 7.2 K/mcL (4.3-11.1)
[2020-12-08 13:07] LABS: Prothrombin Time 44.9 Seconds (9.4-12.1)
[2020-12-08 13:18] LABS: Calcium 8.8 mg/dL (8.6-10.3); Potassium 3.7 mEq/L (3.5-5.1)
[2020-12-08] MEDS ORDERED: Tranexamic Acid 1,000 MG, Syringe CATH TIP 1 EACH in Water for inj. (sterile) 10 ML NS ONE ×2 (14:05→21:26)
[2020-12-08] MEDS ORDERED: Naloxone 0.4 MG/ML INJ IVP PRN (14:15)
[2020-12-08] MEDS: Lidocaine -MPF 4% 5 ML AMPUL TP ONE ×2 (14:15→15:01)
[2020-12-08] MEDS: 0.9 % Sodium Chloride 1,000 ML IVC SCH (15:01)
[2020-12-08] MEDS ORDERED: Furosemide 40 MG/4 ML VIAL IVP ONE (16:19)
[2020-12-08 16:21] LABS: Thyroid Stimulating Hormone 2.793 mcIU/mL (0.340-5.600)
[2020-12-08] MEDS: Metoprolol XL (24 HR) Succ 50 MG TAB.ER.24H PO SCH (16:26)
[2020-12-08] MEDS ORDERED: *HR* Labetalol 20 MG/4 ML SYRINGE IVP ONE (17:28)
[2020-12-08] MEDS: Isosorbide MONOnitrate (24 HR) 30 MG TAB.ER.24H PO SCH (17:58)
[2020-12-08] MEDS: Nitroglycerin 1 INCH/GM PACKET TP SCH (18:02)
[2020-12-08 18:13] LABS: Calcium 9.1 mg/dL (8.6-10.3); Potassium 3.8 mEq/L (3.5-5.1)
[2020-12-08 20:22] LABS: Hematocrit 30.3 % (37.5-50.1); Hemoglobin 10.2 g/dL (12.9-16.9); Mean Corpuscular HGB Conc 33.7 g/dL (31.6-35.5); Mean Corpuscular Hemoglobin 29.1 pg (28.0-33.3); Mean Corpuscular Volume 86.6 fL (83.0-100.0); Mean Platelet Volume 9.2 fL (9.4-12.4); Platelet Count 158 K/mcL (140-400); Red Cell Distribution Width 13.9 % (11.5-14.5); White Blood Count 7.3 K/mcL (4.3-11.1)
[2020-12-08 20:35] LABS: Prothrombin Time 44.8 Seconds (9.4-12.1)
[2020-12-08] MEDS ORDERED: Saline Nasal Spray 44 ML BOTTLE NS PRN (20:46)
[2020-12-08] MEDS: Petrolatum, White OINT.PACK TP SCH (21:34)
[2020-12-08] MEDS: Saline Nasal Spray 44 ML BOTTLE NS SCH (21:34)
[2020-12-09] MEDS ORDERED: Acetaminophen 325 MG TABLET PO PRN (00:12)
[2020-12-09] MEDS: Saline Nasal Spray 44 ML BOTTLE NS SCH ×6 (01:03→22:18)
[2020-12-09] MEDS: Oxymetazoline Nasal SPRAY BOTTLE NS SCH ×2 (03:39→16:20)
[2020-12-09 04:12] LABS: Hematocrit 30.1 % (37.5-50.1); Hemoglobin 9.8 g/dL (12.9-16.9); Mean Corpuscular HGB Conc 32.6 g/dL (31.6-35.5); Mean Corpuscular Hemoglobin 28.6 pg (28.0-33.3); Mean Corpuscular Volume 87.8 fL (83.0-100.0); Mean Platelet Volume 9.3 fL (9.4-12.4); Platelet Count 162 K/mcL (140-400); Red Blood Count 3.43 M/mcL (4.19-5.50); Red Cell Distribution Width 13.7 % (11.5-14.5); Segmented Neutrophils % 73.9 %; White Blood Count 6.5 K/mcL (4.3-11.1)
[2020-12-09 04:13] LABS: Basophils % 0.5 %; Eosinophils # 0.2 K/mcL (0.0-0.6); Eosinophils % 3.6 %; Immature Granulocytes % 0.5 % (0-4); Lymphocytes # 0.6 K/mcL (0.6-4.6); Lymphocytes % 9.9 %; Monocytes # 0.8 K/mcL (0.0-1.3); Monocytes % 11.6 %; Neutrophils # 4.8 K/mcL (1.6-8.9)
[2020-12-09 04:27] LABS: INR 3.7; Prothrombin Time 40.8 Seconds (9.4-12.1)
[2020-12-09 04:30] LABS: Calcium 8.9 mg/dL (8.6-10.3); Magnesium 1.6 mg/dL (1.6-2.6); Phosphorous 3.4 mg/dL (2.7-4.5); Potassium 3.7 mEq/L (3.5-5.1)
[2020-12-09] MEDS: 0.9 % Sodium Chloride 1,000 ML IVC SCH (05:15)
[2020-12-09] MEDS: Nitroglycerin 1 INCH/GM PACKET TP SCH ×2 (05:22→10:54)
[2020-12-09] MEDS: Metoprolol XL (24 HR) Succ 50 MG TAB.ER.24H PO SCH (08:31)
[2020-12-09] MEDS: Isosorbide MONOnitrate (24 HR) 30 MG TAB.ER.24H PO SCH (08:32)
[2020-12-09] MEDS: Petrolatum, White OINT.PACK TP SCH ×3 (08:34→22:18)
[2020-12-09] MEDS: Furosemide 40 MG/4 ML VIAL IVP SCH ×2 (08:36→16:16)
[2020-12-09 13:02] LABS: Hematocrit 29.8 % (37.5-50.1); Hemoglobin 9.8 g/dL (12.9-16.9); Mean Corpuscular HGB Conc 32.9 g/dL (31.6-35.5); Mean Corpuscular Hemoglobin 28.7 pg (28.0-33.3); Mean Corpuscular Volume 87.1 fL (83.0-100.0); Mean Platelet Volume 9.4 fL (9.4-12.4); Platelet Count 162 K/mcL (140-400); Red Blood Count 3.42 M/mcL (4.19-5.50); White Blood Count 6.4 K/mcL (4.3-11.1)
[2020-12-09 13:09] LABS: Calcium 8.7 mg/dL (8.6-10.3); Potassium 3.5 mEq/L (3.5-5.1)
[2020-12-09] MEDS: amLODIPine 5 MG TABLET PO SCH (16:16)
[2020-12-09 20:31] LABS: Hematocrit 31.7 % (37.5-50.1); Hemoglobin 10.2 g/dL (12.9-16.9); Mean Corpuscular HGB Conc 32.2 g/dL (31.6-35.5); Mean Corpuscular Hemoglobin 28.7 pg (28.0-33.3); Platelet Count 167 K/mcL (140-400); Red Blood Count 3.56 M/mcL (4.19-5.50); White Blood Count 7.9 K/mcL (4.3-11.1)
[2020-12-10] MEDS: Saline Nasal Spray 44 ML BOTTLE NS SCH ×4 (02:42→12:19)
[2020-12-10] MEDS: Nitroglycerin 1 INCH/GM PACKET TP SCH ×2 (05:13→12:19)
[2020-12-10] MEDS: Oxymetazoline Nasal SPRAY BOTTLE NS SCH (05:13)
[2020-12-10 08:14] VITALS: BP 179/89
[2020-12-10 09:04] LABS: Basophils # 0.1 K/mcL (0.0-0.2); Basophils % 0.8 %; Eosinophils # 0.3 K/mcL (0.0-0.6); Eosinophils % 4.5 %; Hematocrit 32.7 % (37.5-50.1); Hemoglobin 10.5 g/dL (12.9-16.9); Immature Granulocytes % 0.4 % (0-4); Lymphocytes # 0.8 K/mcL (0.6-4.6); Lymphocytes % 10.4 %; Mean Corpuscular HGB Conc 32.1 g/dL (31.6-35.5); Mean Corpuscular Hemoglobin 28.3 pg (28.0-33.3); Mean Corpuscular Volume 88.1 fL (83.0-100.0); Mean Platelet Volume 8.9 fL (9.4-12.4); Monocytes # 0.8 K/mcL (0.0-1.3); Monocytes % 10.8 %; Neutrophils # 5.4 K/mcL (1.6-8.9); Platelet Count 165 K/mcL (140-400); Red Blood Count 3.71 M/mcL (4.19-5.50); Segmented Neutrophils % 73.1 %; White Blood Count 7.3 K/mcL (4.3-11.1)
[2020-12-10 09:21] LABS: Calcium 9.1 mg/dL (8.6-10.3); Magnesium 1.7 mg/dL (1.6-2.6); Phosphorous 3.4 mg/dL (2.7-4.5); Potassium 3.7 mEq/L (3.5-5.1)
[2020-12-10] MEDS: amLODIPine 5 MG TABLET PO SCH (09:57)
[2020-12-10] MEDS: Metoprolol XL (24 HR) Succ 50 MG TAB.ER.24H PO SCH (09:57)
[2020-12-10] MEDS: Isosorbide MONOnitrate (24 HR) 30 MG TAB.ER.24H PO SCH (09:57)
[2020-12-10] MEDS: Furosemide 40 MG/4 ML VIAL IVP SCH (09:57)
[2020-12-10] MEDS: Petrolatum, White OINT.PACK TP SCH (09:58)
[2020-12-12 23:44] LABS: Alpha 2 Globulin (PEP) 0.62 g/dL (0.48-1.05); Beta Globulin (PEP) 0.86 g/dL (0.48-1.10)
[2020-12-13 11:23] LABS: IFE Reflexed NOT DONE
== END 2020-12-10 12:59 | disposition home or self-care (01) ==
LOC: 3BNU 12:02 → EMEROOARM 12:02 → 3BNU 15:35 → 2ANU 16:00
PROVIDERS: ADMIT Internal Medicine; ATTEND Internal Medicine

== ENCOUNTER 2020-12-21 17:05 | Observation (INO) ==
[2020-12-21] MEDS ORDERED: Ondansetron ODT 4 MG TAB.RAPDIS SL PRN (18:26)
[2020-12-21] MEDS ORDERED: Acetaminophen 325 MG TABLET PO PRN (18:26)
[2020-12-21] MEDS ORDERED: Naloxone 0.4 MG/ML INJ IVP PRN (18:26)
[2020-12-21 20:07] LABS: Hematocrit 27.5 % (37.5-50.1); Hemoglobin 8.7 g/dL (12.9-16.9); Mean Corpuscular HGB Conc 31.6 g/dL (31.6-35.5); Mean Corpuscular Hemoglobin 28.8 pg (28.0-33.3); Mean Corpuscular Volume 91.1 fL (83.0-100.0); Mean Platelet Volume 9.6 fL (9.4-12.4); Platelet Count 147 K/mcL (140-400); Red Blood Count 3.02 M/mcL (4.19-5.50); Red Cell Distribution Width 14.6 % (11.5-14.5); White Blood Count 6.3 K/mcL (4.3-11.1)
[2020-12-21 20:17] LABS: INR 3.3; Prothrombin Time 37.1 Seconds (9.4-12.1)
[2020-12-21 20:27] LABS: Albumin 3.4 g/dL (3.5-5.7); Bilirubin,Total 0.7 mg/dL (0.3-1.0); Calcium 8.8 mg/dL (8.6-10.3); Globulin 3.5 g/dL (2.4-3.5); Potassium 4.3 mEq/L (3.5-5.1); Total Protein 6.9 g/dL (6.4-8.9)
[2020-12-21] MEDS ORDERED: *HR* Phytonadione 5 MG TABLET PO ONE (21:18)
[2020-12-21] MEDS ORDERED: Oxymetazoline Nasal SPRAY BOTTLE NS PRN (22:14)
[2020-12-22 05:30] LABS: INR 3.2; Prothrombin Time 35.7 Seconds (9.4-12.1)
[2020-12-22 05:33] LABS: Hematocrit 27.1 % (37.5-50.1); Hemoglobin 8.3 g/dL (12.9-16.9); Mean Corpuscular HGB Conc 30.6 g/dL (31.6-35.5); Mean Corpuscular Hemoglobin 27.6 pg (28.0-33.3); Mean Platelet Volume 9.5 fL (9.4-12.4); Platelet Count 149 K/mcL (140-400); Red Blood Count 3.01 M/mcL (4.19-5.50); Red Cell Distribution Width 14.8 % (11.5-14.5); White Blood Count 5.9 K/mcL (4.3-11.1)
[2020-12-22 05:49] LABS: Calcium 8.8 mg/dL (8.6-10.3); Magnesium 2.1 mg/dL (1.6-2.6); Potassium 4.3 mEq/L (3.5-5.1)
[2020-12-22] MEDS: hydrALAZINE 25 MG TABLET PO SCH ×4 (08:03→21:05)
[2020-12-22] MEDS ORDERED: Metoprolol XL (24 HR) Succ 50 MG TAB.ER.24H PO SCH (09:00)
[2020-12-22] MEDS ORDERED: Isosorbide MONOnitrate (24 HR) 30 MG TAB.ER.24H PO SCH (09:00)
[2020-12-22] MEDS ORDERED: amLODIPine 5 MG TABLET PO SCH (09:00)
[2020-12-22] MEDS ORDERED: *HR* FentaNYL (PF) 100 MCG/2 ML VIAL ONE (10:28)
[2020-12-22] MEDS ORDERED: Ondansetron 4 MG/2 ML VIAL ONE (10:28)
[2020-12-22] MEDS ORDERED: Lidocaine -MPF 2% 2 ML VIAL ONE (10:28)
[2020-12-22] MEDS ORDERED: *HR* Rocuronium Bromide 50 MG/5 ML VIAL ONE (10:28)
[2020-12-22] MEDS ORDERED: *HR* Succinylcholine 200 MG/10 ML VIAL IVP ONE (10:28)
[2020-12-22] MEDS ORDERED: Lidocaine -MPF 4% 5 ML AMPUL ONE (10:28)
[2020-12-22] MEDS ORDERED: *HR* Propofol 200 MG/20 ML VIAL IVP ONE ×2 (10:29→12:27)
[2020-12-22] MEDS ORDERED: Lidocaine/EPI 1:200k 1% PF 10 ML VIAL ONE ×2 (10:37→11:51)
[2020-12-22] MEDS ORDERED: Oxymetazoline Nasal SPRAY BOTTLE NS ONE (10:37)
[2020-12-22] MEDS ORDERED: Lacri-Lube 3.5 GM TUBE ONE (11:34)
[2020-12-22] MEDS ORDERED: EPHEDrine 50 MG/ML VIAL ONE (11:36)
[2020-12-22] MEDS ORDERED: CeFAZolin Syr 2,000MG/20 ML 2,000 MG/20 ML SYRINGE IVPB ONE (12:00)
[2020-12-22] MEDS ORDERED: Ringers Solution, Lactated 1,000 ML ONE (13:40)
[2020-12-22] MEDS ORDERED: Naloxone 0.4 MG/ML INJ IVP PRN (14:24)
[2020-12-22] MEDS ORDERED: Oxymetazoline Nasal SPRAY BOTTLE NS PRN (14:24)
[2020-12-22] MEDS ORDERED: Ondansetron ODT 4 MG TAB.RAPDIS SL PRN (14:24)
[2020-12-22] MEDS: Acetaminophen 325 MG TABLET PO PRN (15:41)
[2020-12-23] MEDS: Acetaminophen 325 MG TABLET PO PRN (02:08)
[2020-12-23] MEDS ORDERED: Amoxicillin/Clavulanate 500 MG TABLET PO SCH (08:00)
[2020-12-23 08:54] LABS: Basophils % 0.1 %; Hematocrit 28.8 % (37.5-50.1); Hemoglobin 8.9 g/dL (12.9-16.9); Immature Granulocytes % 0.5 % (0-4); Lymphocytes # 0.3 K/mcL (0.6-4.6); Lymphocytes % 4.6 %; Mean Corpuscular HGB Conc 30.9 g/dL (31.6-35.5); Mean Corpuscular Hemoglobin 28.3 pg (28.0-33.3); Mean Corpuscular Volume 91.4 fL (83.0-100.0); Mean Platelet Volume 9.5 fL (9.4-12.4); Monocytes # 0.2 K/mcL (0.0-1.3); Monocytes % 3.2 %; Neutrophils # 6.8 K/mcL (1.6-8.9); Platelet Count 141 K/mcL (140-400); Red Blood Count 3.15 M/mcL (4.19-5.50); Red Cell Distribution Width 14.8 % (11.5-14.5); Segmented Neutrophils % 91.6 %; White Blood Count 7.4 K/mcL (4.3-11.1)
[2020-12-23] MEDS ORDERED: Metoprolol XL (24 HR) Succ 50 MG TAB.ER.24H PO SCH (09:00)
[2020-12-23] MEDS ORDERED: Isosorbide MONOnitrate (24 HR) 30 MG TAB.ER.24H PO SCH (09:00)
[2020-12-23] MEDS ORDERED: amLODIPine 5 MG TABLET PO SCH (09:00)
[2020-12-23 09:03] LABS: INR 1.8; Prothrombin Time 20.7 Seconds (9.4-12.1)
[2020-12-23 09:16] LABS: Calcium 9.1 mg/dL (8.6-10.3)
[2020-12-23] MEDS: hydrALAZINE 25 MG TABLET PO SCH (10:18)
[2020-12-23 11:28] VITALS: BP 142/75
== END 2020-12-23 12:38 | disposition home or self-care (01) ==
LOC: CDU → SUATTDRO 17:32
PROVIDERS: ADMIT Internal Medicine; ATTEND Internal Medicine

== ENCOUNTER 2021-01-09 20:58 | Inpatient (IN) ==
[2021-01-09 21:49] LABS: Basophils % 0.3 %; Eosinophils # 0.6 K/mcL (0.0-0.6); Eosinophils % 9.1 %; Hematocrit 18.2 % (37.5-50.1); Immature Granulocytes % 0.3 % (0-4); Lymphocytes # 0.8 K/mcL (0.6-4.6); Lymphocytes % 12.4 %; Mean Corpuscular HGB Conc 31.3 g/dL (31.6-35.5); Mean Corpuscular Hemoglobin 27.5 pg (28.0-33.3); Mean Corpuscular Volume 87.9 fL (83.0-100.0); Mean Platelet Volume 9.6 fL (9.4-12.4); Monocytes # 0.6 K/mcL (0.0-1.3); Monocytes % 9.1 %; Platelet Count 106 K/mcL (140-400); Red Blood Count 2.07 M/mcL (4.19-5.50); Red Cell Distribution Width 15.6 % (11.5-14.5); Segmented Neutrophils % 68.8 %; White Blood Count 6.2 K/mcL (4.3-11.1)
[2021-01-09 21:50] LABS: Neutrophils # 4.3 K/mcL (1.6-8.9)
[2021-01-09 21:52] LABS: Hemoglobin 5.7 g/dL (12.9-16.9)
[2021-01-09 21:54] LABS: INR 3.2; Prothrombin Time 35.4 Seconds (9.4-12.1)
[2021-01-09 22:08] LABS: Calcium 8.5 mg/dL (8.6-10.3)
[2021-01-10] MEDS ORDERED: Naloxone 0.4 MG/ML INJ IVP PRN (01:08)
[2021-01-10] MEDS ORDERED: Ondansetron 4 MG/2 ML VIAL IVP PRN (01:08)
[2021-01-10] MEDS: Acetaminophen 325 MG TABLET PO PRN ×3 (02:21→23:54)
[2021-01-10] MEDS ORDERED: 0.9 % Sodium Chloride 250 ML ONE (02:47)
[2021-01-10 07:14] LABS: Hematocrit 24.1 % (37.5-50.1)
[2021-01-10 07:16] LABS: Hemoglobin 7.4 g/dL (12.9-16.9)
[2021-01-10 07:51] LABS: INR 3.4; Prothrombin Time 37.5 Seconds (9.4-12.1)
[2021-01-10 07:54] LABS: Activated Partial Thrombo Time 65.3 Seconds (26.0-36.0)
[2021-01-10 08:00] LABS: Mean Corpuscular HGB Conc 30.5 g/dL (31.6-35.5); Mean Corpuscular Hemoglobin 27.3 pg (28.0-33.3); Mean Corpuscular Volume 89.5 fL (83.0-100.0); Mean Platelet Volume 9.5 fL (9.4-12.4); Platelet Count 114 K/mcL (140-400); Red Blood Count 2.75 M/mcL (4.19-5.50); Red Cell Distribution Width 15.2 % (11.5-14.5)
[2021-01-10 08:07] LABS: Calcium 8.8 mg/dL (8.6-10.3); Potassium 4.7 mEq/L (3.5-5.1)
[2021-01-10 11:57] LABS: Hematocrit 25.3 % (37.5-50.1); Hemoglobin 7.7 g/dL (12.9-16.9)
[2021-01-10] MEDS ORDERED: *HR* Metoprolol 5 MG/5 ML VIAL IVP PRN (14:57)
[2021-01-10 18:25] LABS: INR 3.6; Prothrombin Time 40.3 Seconds (9.4-12.1)
[2021-01-11 06:31] LABS: Basophils % 0.3 %; Eosinophils # 0.5 K/mcL (0.0-0.6); Eosinophils % 6.6 %; Hematocrit 23.9 % (37.5-50.1); Hemoglobin 7.7 g/dL (12.9-16.9); Immature Granulocytes % 0.5 % (0-4); Lymphocytes # 0.7 K/mcL (0.6-4.6); Lymphocytes % 9.2 %; Mean Corpuscular HGB Conc 32.2 g/dL (31.6-35.5); Mean Corpuscular Hemoglobin 28.5 pg (28.0-33.3); Mean Corpuscular Volume 88.5 fL (83.0-100.0); Mean Platelet Volume 9.2 fL (9.4-12.4); Monocytes # 0.6 K/mcL (0.0-1.3); Monocytes % 7.8 %; Neutrophils # 5.6 K/mcL (1.6-8.9); Platelet Count 104 K/mcL (140-400); Red Cell Distribution Width 15.6 % (11.5-14.5); Segmented Neutrophils % 75.6 %; White Blood Count 7.4 K/mcL (4.3-11.1)
[2021-01-11 06:32] LABS: Prothrombin Time 23.1 Seconds (9.4-12.1)
[2021-01-11 06:49] LABS: Calcium 9.1 mg/dL (8.6-10.3); Potassium 4.7 mEq/L (3.5-5.1)
[2021-01-11] MEDS: Acetaminophen 325 MG TABLET PO PRN ×2 (08:12→20:34)
[2021-01-11] MEDS ORDERED: Furosemide 20 MG TABLET PO SCH (16:00)
[2021-01-11 17:11] LABS: INR 1.7; Prothrombin Time 19.4 Seconds (9.4-12.1)
[2021-01-11] MEDS: Metoprolol XL (24 HR) Succ 50 MG TAB.ER.24H PO SCH (17:43)
[2021-01-11] MEDS: amLODIPine 5 MG TABLET PO SCH (20:33)
[2021-01-12 05:56] LABS: Hematocrit 24.6 % (37.5-50.1); Hemoglobin 7.7 g/dL (12.9-16.9)
[2021-01-12 06:04] LABS: INR 1.5; Prothrombin Time 17.5 Seconds (9.4-12.1)
[2021-01-12] MEDS: Metoprolol XL (24 HR) Succ 50 MG TAB.ER.24H PO SCH (08:16)
[2021-01-12] MEDS: amLODIPine 5 MG TABLET PO SCH ×2 (08:16→21:46)
[2021-01-12] MEDS: Isosorbide MONOnitrate (24 HR) 30 MG TAB.ER.24H PO SCH (08:16)
[2021-01-12] MEDS ORDERED: hydrALAZINE 25 MG TABLET PO SCH (09:00)
[2021-01-12] MEDS ORDERED: Isovue-370 500 ML BOTTLE IVP ONE (09:32)
[2021-01-12] MEDS ORDERED: Acetaminophen IV 1,000 MG/100 ML BAG IVPB PRN (10:22)
[2021-01-12] MEDS ORDERED: Ondansetron 4 MG/2 ML VIAL IVP PRN (10:22)
[2021-01-12] MEDS ORDERED: *HR* Labetalol 20 MG/4 ML SYRINGE IVP PRN (10:22)
[2021-01-12] MEDS ORDERED: *HR* FentaNYL (PF) 100 MCG/2 ML VIAL IVP PRN (10:22)
[2021-01-12] MEDS ORDERED: Ringers Solution, Lactated 1,000 ML IVC SCH (10:30)
[2021-01-12 10:50] LABS: Calcium 9.3 mg/dL (8.6-10.3); Potassium 4.9 mEq/L (3.5-5.1)
[2021-01-12] MEDS ORDERED: Lidocaine HCL 4 ML Topical Solution (Laryng-O-Jet Kit Sterile Pak) TP ONE (14:12)
[2021-01-12] MEDS ORDERED: Lidocaine/EPI 1:100k 1% 50 ML VIAL ONE (14:16)
[2021-01-12] MEDS ORDERED: Oxymetazoline Nasal SPRAY BOTTLE NS ONE (14:16)
[2021-01-12] MEDS ORDERED: Lidocaine -MPF 2% 2 ML VIAL ONE (14:19)
[2021-01-12] MEDS ORDERED: *HR* Succinylcholine 200 MG/10 ML VIAL IVP ONE (14:19)
[2021-01-12] MEDS ORDERED: Ondansetron 4 MG/2 ML VIAL ONE (14:19)
[2021-01-12] MEDS ORDERED: *HR* FentaNYL (PF) 100 MCG/2 ML VIAL ONE (14:19)
[2021-01-12] MEDS ORDERED: *HR* Rocuronium Bromide 50 MG/5 ML VIAL ONE (14:19)
[2021-01-12] MEDS ORDERED: *HR* Propofol 200 MG/20 ML VIAL IVP ONE (14:19)
[2021-01-12] MEDS ORDERED: *HR* Etomidate 40 MG/20 ML VIAL IVP ONE ×2 (15:06→15:45)
[2021-01-12] MEDS ORDERED: *HR* EPINEPHrine 30 MG/30 ML MDV ONE (15:09)
[2021-01-12] MEDS ORDERED: Sugammadex Sodium 200 MG/2 ML VIAL IV ONE (16:17)
[2021-01-13 06:50] LABS: Hematocrit 25.4 % (37.5-50.1); Hemoglobin 7.7 g/dL (12.9-16.9); Mean Corpuscular HGB Conc 30.3 g/dL (31.6-35.5); Mean Corpuscular Hemoglobin 27.9 pg (28.0-33.3); Mean Platelet Volume 8.8 fL (9.4-12.4); Platelet Count 100 K/mcL (140-400); Red Blood Count 2.76 M/mcL (4.19-5.50); Red Cell Distribution Width 16.6 % (11.5-14.5); White Blood Count 8.4 K/mcL (4.3-11.1)
[2021-01-13 06:57] LABS: INR 1.5; Prothrombin Time 16.7 Seconds (9.4-12.1)
[2021-01-13 07:10] LABS: Calcium 8.9 mg/dL (8.6-10.3); Magnesium 2.1 mg/dL (1.6-2.6); Potassium 6.1 mEq/L (3.5-5.1)
[2021-01-13] MEDS: Isosorbide MONOnitrate (24 HR) 30 MG TAB.ER.24H PO SCH (07:42)
[2021-01-13] MEDS: amLODIPine 5 MG TABLET PO SCH ×2 (07:43→20:02)
[2021-01-13] MEDS: Metoprolol XL (24 HR) Succ 50 MG TAB.ER.24H PO SCH (07:43)
[2021-01-13] MEDS ORDERED: 0.9 % Sodium Chloride 500 ML ONE ×2 (08:34→09:11)
[2021-01-13] MEDS ORDERED: Heparin 1,000 UNITS/500 mL 500 ML ONE (08:34)
[2021-01-13] MEDS ORDERED: *HR* FentaNYL (PF) 100 MCG/2 ML VIAL IVP ONE (08:57)
[2021-01-13] MEDS ORDERED: *HR* Midazolam HCl 2 MG/2 ML VIAL IVP ONE (08:57)
[2021-01-13] MEDS ORDERED: *HR* FentaNYL (PF) 100 MCG/2 ML VIAL ONE (09:10)
[2021-01-13] MEDS ORDERED: *HR* Midazolam HCl 2 MG/2 ML VIAL ONE (09:11)
[2021-01-13] MEDS: cefTRIAXone 1,000 MG in Water for inj. (sterile) 10 ML IVP SCH (10:43)
[2021-01-13 14:25] LABS: Calcium 8.7 mg/dL (8.6-10.3); Potassium 5.8 mEq/L (3.5-5.1)
[2021-01-14 04:32] LABS: Hematocrit 23.4 % (37.5-50.1); Mean Corpuscular HGB Conc 29.9 g/dL (31.6-35.5); Mean Corpuscular Hemoglobin 27.8 pg (28.0-33.3); Mean Corpuscular Volume 92.9 fL (83.0-100.0); Mean Platelet Volume 9.9 fL (9.4-12.4); Platelet Count 111 K/mcL (140-400); Red Blood Count 2.52 M/mcL (4.19-5.50); Red Cell Distribution Width 16.9 % (11.5-14.5); White Blood Count 8.3 K/mcL (4.3-11.1)
[2021-01-14 04:48] LABS: Albumin 3.1 g/dL (3.5-5.7); Calcium 8.3 mg/dL (8.6-10.3)
[2021-01-14] MEDS: cefTRIAXone 1,000 MG in Water for inj. (sterile) 10 ML IVP SCH (07:52)
[2021-01-14] MEDS: Isosorbide MONOnitrate (24 HR) 30 MG TAB.ER.24H PO SCH (07:53)
[2021-01-14] MEDS: Metoprolol XL (24 HR) Succ 50 MG TAB.ER.24H PO SCH (07:53)
[2021-01-14] MEDS: amLODIPine 5 MG TABLET PO SCH ×2 (07:53→20:04)
[2021-01-14] MEDS ORDERED: SODIUM ZIRCONIUM CYCLOSILICATE 5 GM POWD.PACK PO ONE (08:01)
[2021-01-15] MEDS ORDERED: Acetaminophen 325 MG TABLET PO PRN (04:55)
[2021-01-15 05:36] LABS: Hematocrit 22.6 % (37.5-50.1); Hemoglobin 6.7 g/dL (12.9-16.9); Mean Corpuscular HGB Conc 29.6 g/dL (31.6-35.5); Mean Corpuscular Hemoglobin 27.2 pg (28.0-33.3); Mean Corpuscular Volume 91.9 fL (83.0-100.0); Mean Platelet Volume 9.4 fL (9.4-12.4); Platelet Count 103 K/mcL (140-400); Red Blood Count 2.46 M/mcL (4.19-5.50); Red Cell Distribution Width 16.9 % (11.5-14.5); White Blood Count 7.1 K/mcL (4.3-11.1)
[2021-01-15 05:50] LABS: Albumin 3.1 g/dL (3.5-5.7); Bilirubin,Direct 0.2 mg/dL (0.0-0.2); Bilirubin,Indirect 0.5 mg/dL (0.0-1.0); Bilirubin,Total 0.7 mg/dL (0.3-1.0); Calcium 8.4 mg/dL (8.6-10.3); Globulin 3.1 g/dL (2.4-3.5); Potassium 4.6 mEq/L (3.5-5.1); Total Protein 6.2 g/dL (6.4-8.9)
[2021-01-15] MEDS: Metoprolol XL (24 HR) Succ 50 MG TAB.ER.24H PO SCH (08:08)
[2021-01-15] MEDS: Isosorbide MONOnitrate (24 HR) 30 MG TAB.ER.24H PO SCH (08:08)
[2021-01-15] MEDS: amLODIPine 5 MG TABLET PO SCH (08:08)
[2021-01-15] MEDS: cefTRIAXone 1,000 MG in Water for inj. (sterile) 10 ML IVP SCH (08:11)
[2021-01-15] MEDS ORDERED: 0.9 % Sodium Chloride 250 ML ONE (09:01)
[2021-01-15 12:06] VITALS: BP 120/72
[2021-01-15 13:15] LABS: Hematocrit 24.6 % (37.5-50.1); Hemoglobin 7.6 g/dL (12.9-16.9)
== END 2021-01-15 14:02 | disposition home or self-care (01) | DRG 150 ==
LOC: 3ANU 20:58 → EMEROOARM 20:58 → SUATTDRO 01-10 00:20 → 3ANU 01-10 01:02
PROVIDERS: ADMIT Student in an Organized Health Care Education/Training Program; ATTEND Internal Medicine

== ENCOUNTER 2021-02-14 13:37 | Inpatient (IN) ==
[2021-02-14 14:51] LABS: Basophils % 0.4 %; Eosinophils # 0.2 K/mcL (0.0-0.6); Eosinophils % 2.8 %; Hematocrit 24.1 % (37.5-50.1); Hemoglobin 7.4 g/dL (12.9-16.9); Immature Granulocytes % 0.5 % (0-4); Lymphocytes # 0.5 K/mcL (0.6-4.6); Mean Corpuscular HGB Conc 30.7 g/dL (31.6-35.5); Mean Corpuscular Hemoglobin 27.6 pg (28.0-33.3); Mean Corpuscular Volume 89.9 fL (83.0-100.0); Mean Platelet Volume 9.5 fL (9.4-12.4); Monocytes # 0.6 K/mcL (0.0-1.3); Neutrophils # 4.3 K/mcL (1.6-8.9); Platelet Count 106 K/mcL (140-400); Red Blood Count 2.68 M/mcL (4.19-5.50); Red Cell Distribution Width 19.5 % (11.5-14.5); Segmented Neutrophils % 76.3 %; White Blood Count 5.7 K/mcL (4.3-11.1)
[2021-02-14 15:06] LABS: INR 1.2; Prothrombin Time 13.9 Seconds (9.4-12.1)
[2021-02-14] MEDS ORDERED: Vancomycin 1,750 MG/517.5 ML IV.SOLN IVPB ONE (15:17)
[2021-02-14 15:19] LABS: Alanine Aminotransferase 17 Units/L (7-52); Albumin 3.4 g/dL (3.5-5.7); Albumin/Globulin Ratio 1.1 (1.1-2.2); Alkaline Phosphatase 148 Units/L (34-104); Aspartate Amino Transferase 28 Units/L (13-39); BUN/Creatinine Ratio 22 (6-26); Bilirubin,Direct 0.3 mg/dL (0.0-0.2); Bilirubin,Indirect 0.4 mg/dL (0.0-1.0); Bilirubin,Total 0.7 mg/dL (0.3-1.0); Blood Urea Nitrogen 91 mg/dL (8-23); Calcium 8.2 mg/dL (8.6-10.3); Carbon Dioxide 19 mEq/L (23-29); Chloride 98 mEq/L (98-107); Globulin 3.1 g/dL (2.4-3.5); Glucose 99 mg/dL (70-105); Osmolality,Calculated 296 (280-300); Sodium 129 mEq/L (136-145); Total Protein 6.5 g/dL (6.4-8.9); Troponin I < 0.03 ng/mL (< 0.04); eGFR For African Americans 17 (> 60); eGFR For Non-African Americans 14 (> 60)
[2021-02-14 15:53] LABS: Bacteria,Urine Few per hpf (None-Few); Bilirubin,Urine Negative (Negative); Blood,Urine Small (Negative); Clarity,Urine Turbid (Clear); Color,Urine Yellow (Yellow); Glucose,Urine (UA) Normal (Normal); Ketones,Urine Negative (Negative); Leukocyte Esterase,Urine Trace (Negative); Mucus,Urine Few per lpf (None-Few); Nitrite,Urine Negative (Negative); Protein,Urine 100 mg/dL (Neg-Trace); RBC,Urine 50-100 per hpf (0-3); Specific Gravity,Urine 1.019 (1.010-1.025); Sperm,Urine Present per hpf (None Seen); Squamous Epithelial Cell,Urine Few per hpf (None-Few); WBC,Urine 15-30 per hpf (0-3)
[2021-02-14] MEDS ORDERED: Cefepime HCl 2,000 MG in Water for inj. (sterile) 20 ML IVP ONE (16:00)
[2021-02-14] MEDS ORDERED: Furosemide 20 MG/2 ML VIAL IVP ONE (16:00)
[2021-02-14 17:21] LABS: C-Reactive Protein 5 mg/L (Less than 10)
[2021-02-14] MEDS ORDERED: Ondansetron 4 MG/2 ML VIAL IVP PRN (18:21)
[2021-02-14] MEDS ORDERED: Naloxone 0.4 MG/ML INJ IVP PRN (18:21)
[2021-02-14] MEDS: *HR* Heparin 5,000 UNIT/ML VIAL SQ SCH (19:50)
[2021-02-14] MEDS: hydrALAZINE 25 MG TABLET PO SCH (22:05)
[2021-02-14] MEDS: Melatonin 3 MG TABLET PO PRN (22:05)
[2021-02-15] MEDS: *HR* Heparin 5,000 UNIT/ML VIAL SQ SCH ×2 (05:04→17:18)
[2021-02-15] MEDS: hydrALAZINE 25 MG TABLET PO SCH ×3 (08:16→20:44)
[2021-02-15] MEDS: amLODIPine 5 MG TABLET PO SCH (08:16)
[2021-02-15] MEDS: Metoprolol XL (24 HR) Succ 50 MG TAB.ER.24H PO SCH (08:16)
[2021-02-15] MEDS: Isosorbide MONOnitrate (24 HR) 30 MG TAB.ER.24H PO SCH (08:16)
[2021-02-15] MEDS ORDERED: cefTRIAXone 1,000 MG in Water for inj. (sterile) 10 ML IVP SCH (09:00)
[2021-02-15 10:06] LABS: Calcium 8.4 mg/dL (8.6-10.3); Magnesium 2.9 mg/dL (1.6-2.6); Phosphorous 6.2 mg/dL (2.7-4.5); Potassium 4.9 mEq/L (3.5-5.1)
[2021-02-15] MEDS ORDERED: Ferumoxytol 510 MG in 0.9 % Sodium Chloride 100 ML IVPB ONE (11:25)
[2021-02-15] MEDS: Albumin 25% 25gram/100mL 25 GM/100 ML IV.SOLN IVPB SCH ×2 (13:33→17:17)
[2021-02-15] MEDS: Acetaminophen 325 MG TABLET PO PRN (22:36)
[2021-02-15] MEDS: Melatonin 3 MG TABLET PO PRN (22:36)
[2021-02-16] MEDS: Albumin 25% 25gram/100mL 25 GM/100 ML IV.SOLN IVPB SCH ×2 (00:42→07:49)
[2021-02-16 01:13] LABS: Hematocrit 22.6 % (37.5-50.1); Immature Platelets 2.3 % (1.1-6.1); Mean Corpuscular Hemoglobin 27.8 pg (28.0-33.3); Mean Corpuscular Volume 89.7 fL (83.0-100.0); Mean Platelet Volume 9.6 fL (9.4-12.4); Red Blood Count 2.52 M/mcL (4.19-5.50); Red Cell Distribution Width 19.5 % (11.5-14.5); White Blood Count 4.5 K/mcL (4.3-11.1)
[2021-02-16 01:25] LABS: Calcium 8.5 mg/dL (8.6-10.3); Magnesium 2.9 mg/dL (1.6-2.6); Phosphorous 6.4 mg/dL (2.7-4.5)
[2021-02-16] MEDS: *HR* Heparin 5,000 UNIT/ML VIAL SQ SCH ×2 (05:44→15:43)
[2021-02-16] MEDS: cefTRIAXone 1,000 MG in Water for inj. (sterile) 10 ML IVP SCH (07:49)
[2021-02-16] MEDS: hydrALAZINE 25 MG TABLET PO SCH ×3 (07:50→20:20)
[2021-02-16] MEDS: Isosorbide MONOnitrate (24 HR) 30 MG TAB.ER.24H PO SCH (07:50)
[2021-02-16] MEDS: Metoprolol XL (24 HR) Succ 50 MG TAB.ER.24H PO SCH (07:50)
[2021-02-16] MEDS: amLODIPine 5 MG TABLET PO SCH (07:51)
[2021-02-16] MEDS: Acetaminophen 325 MG TABLET PO PRN (22:28)
[2021-02-16] MEDS: Melatonin 3 MG TABLET PO PRN (22:28)
[2021-02-17 04:54] LABS: Hematocrit 23.2 % (37.5-50.1); Immature Platelets 1.9 % (1.1-6.1); Mean Corpuscular HGB Conc 30.2 g/dL (31.6-35.5); Mean Corpuscular Hemoglobin 27.5 pg (28.0-33.3); Mean Platelet Volume 10.1 fL (9.4-12.4); Red Blood Count 2.55 M/mcL (4.19-5.50); Red Cell Distribution Width 19.5 % (11.5-14.5); White Blood Count 4.5 K/mcL (4.3-11.1)
[2021-02-17] MEDS: *HR* Heparin 5,000 UNIT/ML VIAL SQ SCH (04:55)
[2021-02-17 05:14] LABS: Calcium 8.7 mg/dL (8.6-10.3); Phosphorous 6.5 mg/dL (2.7-4.5)
[2021-02-17 05:27] LABS: Thyroid Stimulating Hormone 5.374 mcIU/mL (0.340-5.600)
[2021-02-17] MEDS: amLODIPine 5 MG TABLET PO SCH (09:38)
[2021-02-17] MEDS: cefTRIAXone 1,000 MG in Water for inj. (sterile) 10 ML IVP SCH (09:38)
[2021-02-17] MEDS: hydrALAZINE 25 MG TABLET PO SCH ×3 (09:38→20:36)
[2021-02-17] MEDS: Metoprolol XL (24 HR) Succ 50 MG TAB.ER.24H PO SCH (09:38)
[2021-02-17] MEDS: Isosorbide MONOnitrate (24 HR) 30 MG TAB.ER.24H PO SCH (09:39)
[2021-02-17] MEDS ORDERED: NON-FORMULARY MEDICATION 1 EACH EACH (Acetaminophen [Tylenol Arthritis] 650 MG Tablet.Er) PO PRN (11:51)
[2021-02-17] MEDS ORDERED: Oxymetazoline Nasal SPRAY BOTTLE NS PRN (11:51)
[2021-02-17] MEDS ORDERED: 0.9 % Sodium Chloride 250 ML IVC PRN (12:44)
[2021-02-17] MEDS ORDERED: *HR* Heparin 10,000 UNIT/10 ML VIAL IV PRN (12:44)
[2021-02-17] MEDS ORDERED: 0.9 % Sodium Chloride 1,000 ML PRIME SCH (12:45)
[2021-02-17] MEDS ORDERED: Heparin 1,000 UNITS/500 mL 500 ML ONE (13:13)
[2021-02-17] MEDS ORDERED: *HR* Heparin 5,000 UNIT/ML VIAL ONE (13:38)
[2021-02-17 14:12] LABS: Hepatitis B Surface Antibody < 3.10 mIU/mL
[2021-02-17 14:23] LABS: Hepatitis B Surface Antigen Nonreactive (Nonreactive)
[2021-02-17] MEDS: Acetaminophen 325 MG TABLET PO PRN (15:04)
[2021-02-17 22:22] LABS: Hematocrit 21.6 % (37.5-50.1); Hemoglobin 6.6 g/dL (12.9-16.9); Immature Platelets 2.8 % (1.1-6.1); Mean Corpuscular HGB Conc 30.6 g/dL (31.6-35.5); Mean Corpuscular Hemoglobin 27.6 pg (28.0-33.3); Mean Corpuscular Volume 90.4 fL (83.0-100.0); Red Blood Count 2.39 M/mcL (4.19-5.50); Red Cell Distribution Width 19.7 % (11.5-14.5); White Blood Count 4.4 K/mcL (4.3-11.1)
[2021-02-17 22:34] LABS: INR 1.3; Prothrombin Time 15.4 Seconds (9.4-12.1)
[2021-02-17 22:36] LABS: Activated Partial Thrombo Time 47.3 Seconds (26.0-36.0)
[2021-02-17 23:49] LABS: Calcium 8.2 mg/dL (8.6-10.3); Potassium 4.5 mEq/L (3.5-5.1)
[2021-02-17 23:51] LABS: Magnesium 2.6 mg/dL (1.6-2.6); Phosphorous 5.1 mg/dL (2.7-4.5)
[2021-02-17 23:52] LABS: Fibrinogen 311 mg/dL (169-393); Troponin I < 0.03 ng/mL (< 0.04)
[2021-02-17] MEDS ORDERED: 0.9 % Sodium Chloride 250 ML ONE (23:52)
[2021-02-17 23:53] LABS: D-Dimer 911 ng/mLFEU (0-500)
[2021-02-18] MEDS: traZODone 50 MG TABLET PO PRN (03:04)
[2021-02-18] MEDS ORDERED: 0.9 % Sodium Chloride 250 ML ONE (04:27)
[2021-02-18] MEDS: Acetaminophen 325 MG TABLET PO PRN ×2 (07:24→21:34)
[2021-02-18] MEDS: hydrALAZINE 25 MG TABLET PO SCH ×3 (07:24→19:46)
[2021-02-18] MEDS: amLODIPine 5 MG TABLET PO SCH (07:24)
[2021-02-18] MEDS: Isosorbide MONOnitrate (24 HR) 30 MG TAB.ER.24H PO SCH (07:25)
[2021-02-18] MEDS: Metoprolol XL (24 HR) Succ 50 MG TAB.ER.24H PO SCH (07:25)
[2021-02-18] MEDS: cefTRIAXone 1,000 MG in Water for inj. (sterile) 10 ML IVP SCH (07:25)
[2021-02-18] MEDS ORDERED: 0.9 % Sodium Chloride 250 ML IVC PRN (07:30)
[2021-02-18] MEDS ORDERED: *HR* Heparin 10,000 UNIT/10 ML VIAL IV PRN (07:30)
[2021-02-18 08:55] LABS: Basophils % 0.2 %; Monocytes % 10.6 %; Red Cell Distribution Width 19.2 % (11.5-14.5)
[2021-02-18 08:57] LABS: Eosinophils # 0.1 K/mcL (0.0-0.6); Eosinophils % 2.5 %; Hematocrit 23.8 % (37.5-50.1); Hemoglobin 7.6 g/dL (12.9-16.9); Immature Granulocytes % 0.7 % (0-4); Immature Platelets 2.5 % (1.1-6.1); Lymphocytes # 0.5 K/mcL (0.6-4.6); Lymphocytes % 10.1 %; Mean Corpuscular HGB Conc 31.9 g/dL (31.6-35.5); Mean Corpuscular Volume 90.8 fL (83.0-100.0); Mean Platelet Volume 10.2 fL (9.4-12.4); Monocytes # 0.5 K/mcL (0.0-1.3); Neutrophils # 3.4 K/mcL (1.6-8.9); Red Blood Count 2.62 M/mcL (4.19-5.50); Segmented Neutrophils % 75.9 %; White Blood Count 4.5 K/mcL (4.3-11.1)
[2021-02-18 08:58] LABS: Platelet Count 73 K/mcL (140-400)
[2021-02-18 09:15] LABS: Calcium 8.7 mg/dL (8.6-10.3); Potassium 4.6 mEq/L (3.5-5.1)
[2021-02-18 09:16] LABS: Magnesium 2.7 mg/dL (1.6-2.6); Phosphorous 5.3 mg/dL (2.7-4.5)
[2021-02-18] MEDS ORDERED: *HR* HYDROcodone/Acet 5/325 mg TABLET PO PRN (10:04)
[2021-02-18] MEDS: Melatonin 3 MG TABLET PO PRN (21:31)
[2021-02-19 03:39] LABS: Hematocrit 23.8 % (37.5-50.1)
[2021-02-19 03:41] LABS: Hemoglobin 7.1 g/dL (12.9-16.9); Mean Corpuscular HGB Conc 29.8 g/dL (31.6-35.5); Mean Corpuscular Hemoglobin 27.8 pg (28.0-33.3); Mean Corpuscular Volume 93.3 fL (83.0-100.0); Red Blood Count 2.55 M/mcL (4.19-5.50); Red Cell Distribution Width 19.9 % (11.5-14.5); White Blood Count 5.2 K/mcL (4.3-11.1)
[2021-02-19 03:57] LABS: Calcium 8.8 mg/dL (8.6-10.3); Potassium 4.4 mEq/L (3.5-5.1)
[2021-02-19] MEDS: cefTRIAXone 1,000 MG in Water for inj. (sterile) 10 ML IVP SCH (07:24)
[2021-02-19] MEDS: hydrALAZINE 25 MG TABLET PO SCH ×3 (07:25→20:09)
[2021-02-19] MEDS: Isosorbide MONOnitrate (24 HR) 30 MG TAB.ER.24H PO SCH (07:25)
[2021-02-19] MEDS: Darbepoetin 100 MCG/0.5 ML SYRINGE SQ SCH (10:27)
[2021-02-19] MEDS: Furosemide 80 MG in 0.9 % Sodium Chloride 50 ML IV SCH ×2 (11:15→20:09)
[2021-02-19] MEDS: traZODone 50 MG TABLET PO PRN (23:50)
[2021-02-19] MEDS: Acetaminophen 325 MG TABLET PO PRN (23:50)
[2021-02-20 03:26] LABS: Hematocrit 26.4 % (37.5-50.1); Hemoglobin 7.9 g/dL (12.9-16.9); Immature Platelets 2.7 % (1.1-6.1); Mean Corpuscular HGB Conc 29.9 g/dL (31.6-35.5); Mean Corpuscular Hemoglobin 28.1 pg (28.0-33.3); Red Blood Count 2.81 M/mcL (4.19-5.50); Red Cell Distribution Width 19.8 % (11.5-14.5); White Blood Count 5.8 K/mcL (4.3-11.1)
[2021-02-20 03:44] LABS: Calcium 9.2 mg/dL (8.6-10.3); Potassium 4.3 mEq/L (3.5-5.1)
[2021-02-20] MEDS ORDERED: 0.9 % Sodium Chloride 250 ML IVC PRN (07:20)
[2021-02-20] MEDS ORDERED: *HR* Heparin 10,000 UNIT/10 ML VIAL IV PRN (07:20)
[2021-02-20] MEDS ORDERED: 0.9 % Sodium Chloride 1,000 ML PRIME SCH (07:30)
[2021-02-20] MEDS: hydrALAZINE 25 MG TABLET PO SCH ×3 (07:50→20:31)
[2021-02-20] MEDS: Furosemide 80 MG in 0.9 % Sodium Chloride 50 ML IV SCH (07:51)
[2021-02-20] MEDS: Isosorbide MONOnitrate (24 HR) 30 MG TAB.ER.24H PO SCH (07:51)
[2021-02-20] MEDS: Metoprolol XL (24 HR) Succ 25 MG TAB.ER.24H PO SCH (09:08)
[2021-02-20] MEDS: Acetaminophen 325 MG TABLET PO PRN (22:49)
[2021-02-20] MEDS: traZODone 50 MG TABLET PO PRN (22:50)
[2021-02-21] MEDS: Acetaminophen 325 MG TABLET PO PRN ×2 (05:27→23:29)
[2021-02-21 07:47] LABS: Mean Corpuscular Volume 93.6 fL (83.0-100.0)
[2021-02-21 07:48] LABS: Hematocrit 26.2 % (37.5-50.1); Immature Platelets 2.9 % (1.1-6.1); Mean Corpuscular HGB Conc 30.5 g/dL (31.6-35.5); Mean Corpuscular Hemoglobin 28.6 pg (28.0-33.3); Mean Platelet Volume 9.6 fL (9.4-12.4); Red Blood Count 2.8 M/mcL (4.19-5.50); White Blood Count 6.6 K/mcL (4.3-11.1)
[2021-02-21 07:55] LABS: Calcium 9.1 mg/dL (8.6-10.3); Potassium 4.2 mEq/L (3.5-5.1)
[2021-02-21] MEDS: Isosorbide MONOnitrate (24 HR) 30 MG TAB.ER.24H PO SCH (08:36)
[2021-02-21] MEDS: Metoprolol XL (24 HR) Succ 25 MG TAB.ER.24H PO SCH (08:36)
[2021-02-21] MEDS: hydrALAZINE 25 MG TABLET PO SCH ×3 (08:37→20:07)
[2021-02-21] MEDS: Furosemide 20 MG TABLET PO SCH (11:46)
[2021-02-21] MEDS: Melatonin 3 MG TABLET PO PRN (23:25)
[2021-02-21] MEDS: traZODone 50 MG TABLET PO PRN (23:26)
[2021-02-22 02:04] LABS: Hemoglobin 7.9 g/dL (12.9-16.9); Immature Platelets 2.3 % (1.1-6.1); Mean Corpuscular HGB Conc 30.4 g/dL (31.6-35.5); Mean Corpuscular Hemoglobin 28.9 pg (28.0-33.3); Mean Corpuscular Volume 95.2 fL (83.0-100.0); Mean Platelet Volume 9.3 fL (9.4-12.4); Red Blood Count 2.73 M/mcL (4.19-5.50); Red Cell Distribution Width 20.5 % (11.5-14.5); White Blood Count 6.9 K/mcL (4.3-11.1)
[2021-02-22 02:25] LABS: Calcium 9.2 mg/dL (8.6-10.3); Magnesium 2.1 mg/dL (1.6-2.6); Phosphorous 4.1 mg/dL (2.7-4.5); Potassium 4.2 mEq/L (3.5-5.1)
[2021-02-22] MEDS: hydrALAZINE 25 MG TABLET PO SCH ×3 (08:09→19:56)
[2021-02-22] MEDS: Isosorbide MONOnitrate (24 HR) 30 MG TAB.ER.24H PO SCH (08:09)
[2021-02-22] MEDS: Furosemide 20 MG TABLET PO SCH (08:09)
[2021-02-22] MEDS: Metoprolol XL (24 HR) Succ 25 MG TAB.ER.24H PO SCH (08:09)
[2021-02-22] MEDS ORDERED: 0.9 % Sodium Chloride 250 ML IVC PRN (13:28)
[2021-02-22] MEDS ORDERED: *HR* Heparin 10,000 UNIT/10 ML VIAL IV PRN (13:28)
[2021-02-22] MEDS ORDERED: 0.9 % Sodium Chloride 1,000 ML PRIME SCH (13:30)
[2021-02-22] MEDS: Piperacillin/Tazobactam 3.375 GM in 0.9 % Sodium Chloride Mini Bag 100 ML IVPB SCH ×2 (16:37→17:01)
[2021-02-22] MEDS: Acetaminophen 325 MG TABLET PO PRN (22:41)
[2021-02-22] MEDS: traZODone 50 MG TABLET PO PRN (22:48)
[2021-02-23] MEDS: Piperacillin/Tazobactam 3.375 GM in 0.9 % Sodium Chloride Mini Bag 100 ML IVPB SCH ×2 (05:16→17:27)
[2021-02-23 07:51] LABS: Hemoglobin 8.2 g/dL (12.9-16.9); White Blood Count 6.4 K/mcL (4.3-11.1)
[2021-02-23] MEDS ORDERED: *HR* Heparin 10,000 UNIT/10 ML VIAL IV PRN (07:51)
[2021-02-23] MEDS ORDERED: 0.9 % Sodium Chloride 250 ML IVC PRN (07:51)
[2021-02-23 07:53] LABS: Hematocrit 26.3 % (37.5-50.1); Immature Platelets 2.6 % (1.1-6.1); Mean Corpuscular HGB Conc 31.2 g/dL (31.6-35.5); Mean Corpuscular Hemoglobin 29.3 pg (28.0-33.3); Mean Corpuscular Volume 93.9 fL (83.0-100.0); Mean Platelet Volume 10.3 fL (9.4-12.4); Red Blood Count 2.8 M/mcL (4.19-5.50); Red Cell Distribution Width 20.7 % (11.5-14.5)
[2021-02-23 08:06] LABS: Calcium 9.4 mg/dL (8.6-10.3); Potassium 3.9 mEq/L (3.5-5.1)
[2021-02-23 08:07] LABS: Phosphorous 3.7 mg/dL (2.7-4.5)
[2021-02-23] MEDS: Ipratropium/Albuterol Neb 3 ML IH SCH ×3 (11:09→21:59)
[2021-02-23 11:42] LABS: ABG Base Excess 7 mEq/L (-2 to 3); ABG HCO3 33 mEq/L (21-27); ABG Oxygen Saturation 93 % (95-98); ABG PCO2 48 mmHg (35-45); ABG PH 7.44 pH Units (7.32-7.45); ABG PO2 67 mmHg (85-104); ABG TCO2 34 mEq/L (20-26)
[2021-02-23] MEDS: Furosemide 20 MG TABLET PO SCH (13:03)
[2021-02-23] MEDS: Metoprolol XL (24 HR) Succ 25 MG TAB.ER.24H PO SCH (13:03)
[2021-02-23] MEDS: hydrALAZINE 25 MG TABLET PO SCH ×3 (13:04→20:51)
[2021-02-23] MEDS: Isosorbide MONOnitrate (24 HR) 30 MG TAB.ER.24H PO SCH (13:04)
[2021-02-23] MEDS ORDERED: *HR* Atropine Sulfate 1 MG/10 ML SYRINGE ONE (17:40)
[2021-02-24] MEDS: Ipratropium/Albuterol Neb 3 ML IH SCH ×4 (03:09→23:23)
[2021-02-24] MEDS: Piperacillin/Tazobactam 3.375 GM in 0.9 % Sodium Chloride Mini Bag 100 ML IVPB SCH ×2 (05:30→17:56)
[2021-02-24 06:31] LABS: Phosphorous 4.1 mg/dL (2.7-4.5); Potassium 3.5 mEq/L (3.5-5.1)
[2021-02-24] MEDS ORDERED: *HR* Heparin 10,000 UNIT/10 ML VIAL IV PRN (07:28)
[2021-02-24] MEDS ORDERED: 0.9 % Sodium Chloride 250 ML IVC PRN (07:28)
[2021-02-24] MEDS ORDERED: 0.9 % Sodium Chloride 1,000 ML PRIME SCH (07:30)
[2021-02-24] MEDS: Metoprolol XL (24 HR) Succ 25 MG TAB.ER.24H PO SCH (07:39)
[2021-02-24] MEDS: hydrALAZINE 25 MG TABLET PO SCH ×3 (07:39→20:17)
[2021-02-24] MEDS: Furosemide 20 MG TABLET PO SCH (09:27)
[2021-02-24] MEDS: Isosorbide MONOnitrate (24 HR) 30 MG TAB.ER.24H PO SCH (09:27)
[2021-02-24 11:03] LABS: Mean Corpuscular Volume 96.2 fL (83.0-100.0)
[2021-02-24 11:05] LABS: Hematocrit 25.6 % (37.5-50.1); Hemoglobin 7.6 g/dL (12.9-16.9); Immature Platelets 2.6 % (1.1-6.1); Mean Corpuscular HGB Conc 29.7 g/dL (31.6-35.5); Mean Corpuscular Hemoglobin 28.6 pg (28.0-33.3); Mean Platelet Volume 9.8 fL (9.4-12.4); Red Blood Count 2.66 M/mcL (4.19-5.50); Red Cell Distribution Width 20.7 % (11.5-14.5); White Blood Count 4.6 K/mcL (4.3-11.1)
[2021-02-25] MEDS: traZODone 50 MG TABLET PO PRN (00:17)
[2021-02-25 02:49] LABS: Basophils % 0.4 %; Eosinophils # 0.2 K/mcL (0.0-0.6); Eosinophils % 4.2 %; Hematocrit 26.3 % (37.5-50.1); Hemoglobin 7.9 g/dL (12.9-16.9); Immature Granulocytes % 0.4 % (0-4); Immature Platelets 2.2 % (1.1-6.1); Lymphocytes # 0.5 K/mcL (0.6-4.6); Lymphocytes % 9.9 %; Mean Corpuscular Hemoglobin 28.6 pg (28.0-33.3); Mean Corpuscular Volume 95.3 fL (83.0-100.0); Mean Platelet Volume 9.3 fL (9.4-12.4); Monocytes # 0.6 K/mcL (0.0-1.3); Monocytes % 11.6 %; Neutrophils # 3.9 K/mcL (1.6-8.9); Platelet Count 67 K/mcL (140-400); Red Blood Count 2.76 M/mcL (4.19-5.50); Red Cell Distribution Width 20.7 % (11.5-14.5); Segmented Neutrophils % 73.5 %; White Blood Count 5.3 K/mcL (4.3-11.1)
[2021-02-25 03:07] LABS: Calcium 9.1 mg/dL (8.6-10.3); Phosphorous 3.6 mg/dL (2.7-4.5); Potassium 3.8 mEq/L (3.5-5.1)
[2021-02-25] MEDS: Ipratropium/Albuterol Neb 3 ML IH SCH ×5 (04:06→21:33)
[2021-02-25] MEDS: Piperacillin/Tazobactam 3.375 GM in 0.9 % Sodium Chloride Mini Bag 100 ML IVPB SCH ×2 (04:58→16:48)
[2021-02-25] MEDS: hydrALAZINE 25 MG TABLET PO SCH ×3 (08:25→20:17)
[2021-02-25] MEDS: Isosorbide MONOnitrate (24 HR) 30 MG TAB.ER.24H PO SCH (08:25)
[2021-02-25] MEDS: Furosemide 20 MG TABLET PO SCH (08:25)
[2021-02-25] MEDS ORDERED: Albumin 25% 25gram/100mL 25 GM/100 ML IV.SOLN IVPB ONE (14:30)
[2021-02-25] MEDS ORDERED: Furosemide 40 MG/4 ML VIAL IVP ONE (16:00)
[2021-02-26] MEDS: Ipratropium/Albuterol Neb 3 ML IH SCH ×4 (04:00→22:36)
[2021-02-26] MEDS: Piperacillin/Tazobactam 3.375 GM in 0.9 % Sodium Chloride Mini Bag 100 ML IVPB SCH (04:51)
[2021-02-26] MEDS: Isosorbide MONOnitrate (24 HR) 30 MG TAB.ER.24H PO SCH (08:19)
[2021-02-26] MEDS: hydrALAZINE 25 MG TABLET PO SCH ×3 (08:19→20:07)
[2021-02-26] MEDS: Furosemide 20 MG TABLET PO SCH (08:19)
[2021-02-26] MEDS ORDERED: Albumin 25% 25gram/100mL 25 GM/100 ML IV.SOLN IVPB ONE (09:32)
[2021-02-26] MEDS ORDERED: Furosemide 40 MG/4 ML VIAL IVP ONE (09:32)
[2021-02-26] MEDS: Darbepoetin 100 MCG/0.5 ML SYRINGE SQ SCH (09:54)
[2021-02-26 10:52] LABS: Immature Granulocytes % 0.4 % (0-4); Mean Corpuscular Volume 96.3 fL (83.0-100.0); Mean Platelet Volume 9.3 fL (9.4-12.4); Monocytes % 10.4 %
[2021-02-26 10:53] LABS: Basophils % 0.4 %; Eosinophils # 0.3 K/mcL (0.0-0.6); Eosinophils % 5.2 %; Hematocrit 26.2 % (37.5-50.1); Hemoglobin 7.6 g/dL (12.9-16.9); Lymphocytes # 0.5 K/mcL (0.6-4.6); Lymphocytes % 9.1 %; Mean Corpuscular Hemoglobin 27.9 pg (28.0-33.3); Monocytes # 0.6 K/mcL (0.0-1.3); Red Blood Count 2.72 M/mcL (4.19-5.50); Red Cell Distribution Width 20.6 % (11.5-14.5); Segmented Neutrophils % 74.5 %; White Blood Count 5.4 K/mcL (4.3-11.1)
[2021-02-26 10:57] LABS: Platelet Count 69 K/mcL (140-400)
[2021-02-26 11:13] LABS: Calcium 9.3 mg/dL (8.6-10.3); Phosphorous 4.8 mg/dL (2.7-4.5)
[2021-02-26 11:36] LABS: Folate 16.2 ng/mL (3.0-16.0)
[2021-02-27] MEDS: Ipratropium/Albuterol Neb 3 ML IH SCH ×4 (03:46→22:34)
[2021-02-27 06:20] LABS: Basophils % 0.4 %; Immature Granulocytes % 0.4 % (0-4)
[2021-02-27 06:22] LABS: Eosinophils # 0.3 K/mcL (0.0-0.6); Eosinophils % 6.1 %; Hematocrit 24.2 % (37.5-50.1); Hemoglobin 7.3 g/dL (12.9-16.9); Immature Platelets 1.9 % (1.1-6.1); Lymphocytes # 0.5 K/mcL (0.6-4.6); Lymphocytes % 10.3 %; Mean Corpuscular HGB Conc 30.2 g/dL (31.6-35.5); Mean Corpuscular Hemoglobin 28.4 pg (28.0-33.3); Mean Corpuscular Volume 94.2 fL (83.0-100.0); Mean Platelet Volume 9.6 fL (9.4-12.4); Monocytes # 0.4 K/mcL (0.0-1.3); Monocytes % 9.2 %; Neutrophils # 3.5 K/mcL (1.6-8.9); Red Blood Count 2.57 M/mcL (4.19-5.50); Segmented Neutrophils % 73.6 %; White Blood Count 4.8 K/mcL (4.3-11.1)
[2021-02-27 06:24] LABS: Platelet Count 57 K/mcL (140-400)
[2021-02-27 06:47] LABS: Calcium 9.3 mg/dL (8.6-10.3); Potassium 3.8 mEq/L (3.5-5.1)
[2021-02-27] MEDS: hydrALAZINE 25 MG TABLET PO SCH ×3 (08:29→19:19)
[2021-02-27] MEDS: Isosorbide MONOnitrate (24 HR) 30 MG TAB.ER.24H PO SCH (08:29)
[2021-02-27] MEDS ORDERED: Furosemide 80 MG in 0.9 % Sodium Chloride 50 ML IVPB ONE (16:15)
[2021-02-27] MEDS ORDERED: Albumin 25% 25gram/100mL 25 GM/100 ML IV.SOLN IVPB ONE (16:15)
[2021-02-27] MEDS: traZODone 50 MG TABLET PO PRN (22:44)
[2021-02-27] MEDS: Acetaminophen 325 MG TABLET PO PRN (22:44)
[2021-02-28 03:09] LABS: Hematocrit 22.6 % (37.5-50.1)
[2021-02-28 03:11] LABS: Immature Platelets 2.3 % (1.1-6.1); Mean Corpuscular Hemoglobin 28.8 pg (28.0-33.3); Mean Platelet Volume 9.4 fL (9.4-12.4); Red Blood Count 2.43 M/mcL (4.19-5.50); Red Cell Distribution Width 19.7 % (11.5-14.5); White Blood Count 4.9 K/mcL (4.3-11.1)
[2021-02-28 03:27] LABS: Calcium 9.3 mg/dL (8.6-10.3); Magnesium 2.1 mg/dL (1.6-2.6); Potassium 4.4 mEq/L (3.5-5.1)
[2021-02-28] MEDS: Ipratropium/Albuterol Neb 3 ML IH SCH ×4 (03:56→21:51)
[2021-02-28] MEDS ORDERED: Ferumoxytol 510 MG in 0.9 % Sodium Chloride 100 ML IVPB ONE (08:50)
[2021-02-28] MEDS ORDERED: Darbepoetin 100 MCG/0.5 ML SYRINGE SQ SCH (08:51)
[2021-02-28] MEDS: hydrALAZINE 25 MG TABLET PO SCH ×3 (10:02→19:54)
[2021-02-28] MEDS: Isosorbide MONOnitrate (24 HR) 30 MG TAB.ER.24H PO SCH (10:03)
[2021-02-28] MEDS: Amoxicillin/Clavulanate 500 MG TABLET PO SCH (15:10)
[2021-03-01] MEDS: traZODone 50 MG TABLET PO PRN ×2 (01:01→23:06)
[2021-03-01] MEDS: Ipratropium/Albuterol Neb 3 ML IH SCH ×4 (04:06→22:03)
[2021-03-01] MEDS: Acetaminophen 325 MG TABLET PO PRN ×2 (04:20→23:06)
[2021-03-01 05:05] LABS: Hemoglobin 7.3 g/dL (12.9-16.9)
[2021-03-01 05:07] LABS: Hematocrit 22.9 % (37.5-50.1); Immature Platelets 2.4 % (1.1-6.1); Mean Corpuscular HGB Conc 31.9 g/dL (31.6-35.5); Mean Corpuscular Hemoglobin 29.4 pg (28.0-33.3); Mean Corpuscular Volume 92.3 fL (83.0-100.0); Mean Platelet Volume 9.9 fL (9.4-12.4); Red Blood Count 2.48 M/mcL (4.19-5.50); Red Cell Distribution Width 19.3 % (11.5-14.5); White Blood Count 5.4 K/mcL (4.3-11.1)
[2021-03-01 05:19] LABS: Calcium 9.6 mg/dL (8.6-10.3); Potassium 3.8 mEq/L (3.5-5.1)
[2021-03-01 05:20] LABS: Magnesium 2.1 mg/dL (1.6-2.6); Phosphorous 5.2 mg/dL (2.7-4.5)
[2021-03-01] MEDS ORDERED: 0.9 % Sodium Chloride 250 ML IVC PRN (07:48)
[2021-03-01] MEDS ORDERED: *HR* Heparin 10,000 UNIT/10 ML VIAL IV PRN (07:48)
[2021-03-01] MEDS ORDERED: 0.9 % Sodium Chloride 1,000 ML PRIME SCH (08:00)
[2021-03-01] MEDS: Isosorbide MONOnitrate (24 HR) 30 MG TAB.ER.24H PO SCH (08:15)
[2021-03-01] MEDS: hydrALAZINE 25 MG TABLET PO SCH ×3 (08:16→21:15)
[2021-03-01] MEDS ORDERED: Heparin 1,000 UNITS/500 mL 500 ML ONE (09:53)
[2021-03-01] MEDS: *HR* Midazolam HCl 2 MG/2 ML VIAL IVP ONE ×2 (10:13→10:54)
[2021-03-01] MEDS: CeFAZolin 2,000MG/50ML DUPLEX 2,000 MG/50 ML BAG IVPB ONE ×2 (10:13→10:54)
[2021-03-01] MEDS: *HR* FentaNYL (PF) 100 MCG/2 ML VIAL IVP ONE ×2 (10:13→10:54)
[2021-03-01] MEDS ORDERED: 0.9 % Sodium Chloride 500 ML ONE (10:43)
[2021-03-01] MEDS ORDERED: *HR* Heparin 5,000 UNIT/ML VIAL ONE (11:11)
[2021-03-01] MEDS ORDERED: 0.9 % Sodium Chloride 250 ML IVC SCH (15:30)
[2021-03-01] MEDS: Amoxicillin/Clavulanate 500 MG TABLET PO SCH (16:11)
[2021-03-01 20:25] LABS: Hemoglobin 8.2 g/dL (12.9-16.9); Mean Platelet Volume 9.9 fL (9.4-12.4)
[2021-03-01 20:27] LABS: Hematocrit 26.4 % (37.5-50.1); Immature Platelets 3.4 % (1.1-6.1); Mean Corpuscular HGB Conc 31.1 g/dL (31.6-35.5); Mean Corpuscular Hemoglobin 29.1 pg (28.0-33.3); Mean Corpuscular Volume 93.6 fL (83.0-100.0); Red Blood Count 2.82 M/mcL (4.19-5.50); Red Cell Distribution Width 19.8 % (11.5-14.5); White Blood Count 5.4 K/mcL (4.3-11.1)
[2021-03-01 20:34] LABS: INR 1.3; Prothrombin Time 14.8 Seconds (9.4-12.1)
[2021-03-02 01:37] LABS: Hemoglobin 7.7 g/dL (12.9-16.9); Red Cell Distribution Width 19.6 % (11.5-14.5)
[2021-03-02 01:39] LABS: Hematocrit 24.8 % (37.5-50.1); Mean Corpuscular Hemoglobin 28.8 pg (28.0-33.3); Mean Corpuscular Volume 92.9 fL (83.0-100.0); Mean Platelet Volume 9.9 fL (9.4-12.4); Red Blood Count 2.67 M/mcL (4.19-5.50); White Blood Count 5.9 K/mcL (4.3-11.1)
[2021-03-02 01:56] LABS: Calcium 9.3 mg/dL (8.6-10.3); Potassium 3.7 mEq/L (3.5-5.1)
[2021-03-02] MEDS: Ipratropium/Albuterol Neb 3 ML IH SCH ×4 (03:34→21:36)
[2021-03-02] MEDS: Isosorbide MONOnitrate (24 HR) 30 MG TAB.ER.24H PO SCH (08:12)
[2021-03-02] MEDS: hydrALAZINE 25 MG TABLET PO SCH ×3 (08:12→20:20)
[2021-03-02] MEDS: traZODone 50 MG TABLET PO PRN (22:23)
[2021-03-02] MEDS: Acetaminophen 325 MG TABLET PO PRN (22:23)
[2021-03-03] MEDS: Ipratropium/Albuterol Neb 3 ML IH SCH ×4 (03:32→21:58)
[2021-03-03 06:43] LABS: Hematocrit 23.6 % (37.5-50.1); Hemoglobin 7.2 g/dL (12.9-16.9); Immature Platelets 2.8 % (1.1-6.1); Mean Corpuscular HGB Conc 30.5 g/dL (31.6-35.5); Mean Corpuscular Hemoglobin 28.6 pg (28.0-33.3); Mean Corpuscular Volume 93.7 fL (83.0-100.0); Red Blood Count 2.52 M/mcL (4.19-5.50); Red Cell Distribution Width 19.6 % (11.5-14.5); White Blood Count 5.5 K/mcL (4.3-11.1)
[2021-03-03 06:55] LABS: Calcium 9.4 mg/dL (8.6-10.3); Magnesium 2.2 mg/dL (1.6-2.6); Potassium 3.6 mEq/L (3.5-5.1)
[2021-03-03] MEDS: Isosorbide MONOnitrate (24 HR) 30 MG TAB.ER.24H PO SCH (07:45)
[2021-03-03] MEDS: hydrALAZINE 25 MG TABLET PO SCH ×3 (07:45→20:59)
[2021-03-03] MEDS: Acetaminophen 325 MG TABLET PO PRN (22:45)
[2021-03-03] MEDS: traZODone 50 MG TABLET PO PRN (22:45)
[2021-03-03] MEDS: Melatonin 3 MG TABLET PO PRN (22:45)
[2021-03-04 02:15] LABS: Hematocrit 22.1 % (37.5-50.1); Hemoglobin 7.1 g/dL (12.9-16.9); Immature Platelets 1.5 % (1.1-6.1); Mean Corpuscular HGB Conc 32.1 g/dL (31.6-35.5); Mean Corpuscular Hemoglobin 29.8 pg (28.0-33.3); Mean Corpuscular Volume 92.9 fL (83.0-100.0); Mean Platelet Volume 9.2 fL (9.4-12.4); Red Blood Count 2.38 M/mcL (4.19-5.50); Red Cell Distribution Width 19.5 % (11.5-14.5); White Blood Count 6.3 K/mcL (4.3-11.1)
[2021-03-04 02:32] LABS: Magnesium 2.4 mg/dL (1.6-2.6); Phosphorous 5.6 mg/dL (2.7-4.5)
[2021-03-04 02:33] LABS: Calcium 9.4 mg/dL (8.6-10.3); Potassium 3.6 mEq/L (3.5-5.1)
[2021-03-04] MEDS: Ipratropium/Albuterol Neb 3 ML IH SCH ×4 (03:53→22:19)
[2021-03-04] MEDS ORDERED: *HR* Heparin 10,000 UNIT/10 ML VIAL IV PRN ×2 (08:15)
[2021-03-04] MEDS ORDERED: 0.9 % Sodium Chloride 250 ML IVC PRN (08:15)
[2021-03-04] MEDS: hydrALAZINE 25 MG TABLET PO SCH ×3 (09:17→20:49)
[2021-03-04] MEDS: Isosorbide MONOnitrate (24 HR) 30 MG TAB.ER.24H PO SCH (09:17)
[2021-03-04] MEDS ORDERED: Darbepoetin 100 MCG/0.5 ML SYRINGE SQ SCH (14:45)
[2021-03-04] MEDS: traZODone 50 MG TABLET PO PRN (22:15)
[2021-03-04] MEDS: Melatonin 3 MG TABLET PO PRN (22:15)
[2021-03-05 03:36] LABS: Hematocrit 25.1 % (37.5-50.1); Mean Corpuscular HGB Conc 31.9 g/dL (31.6-35.5); Mean Corpuscular Hemoglobin 29.9 pg (28.0-33.3); Mean Corpuscular Volume 93.7 fL (83.0-100.0); Mean Platelet Volume 9.2 fL (9.4-12.4); Platelet Count 106 K/mcL (140-400); Red Blood Count 2.68 M/mcL (4.19-5.50); Red Cell Distribution Width 19.4 % (11.5-14.5); White Blood Count 6.6 K/mcL (4.3-11.1)
[2021-03-05 03:48] LABS: Calcium 9.2 mg/dL (8.6-10.3); Potassium 3.7 mEq/L (3.5-5.1)
[2021-03-05] MEDS: Ipratropium/Albuterol Neb 3 ML IH SCH (04:07)
[2021-03-05] MEDS ORDERED: Ipratropium/Albuterol Neb 3 ML IH PRN (07:26)
[2021-03-05] MEDS: hydrALAZINE 25 MG TABLET PO SCH ×3 (09:26→21:48)
[2021-03-05] MEDS: Isosorbide MONOnitrate (24 HR) 30 MG TAB.ER.24H PO SCH (09:26)
[2021-03-05] MEDS: Acetaminophen 325 MG TABLET PO PRN (21:37)
[2021-03-05] MEDS: Melatonin 3 MG TABLET PO PRN (21:39)
[2021-03-06 07:53] LABS: Hematocrit 24.8 % (37.5-50.1); Hemoglobin 7.9 g/dL (12.9-16.9); Mean Corpuscular HGB Conc 31.9 g/dL (31.6-35.5); Mean Corpuscular Hemoglobin 29.6 pg (28.0-33.3); Mean Corpuscular Volume 92.9 fL (83.0-100.0); Mean Platelet Volume 9.4 fL (9.4-12.4); Platelet Count 104 K/mcL (140-400); Red Blood Count 2.67 M/mcL (4.19-5.50); White Blood Count 5.9 K/mcL (4.3-11.1)
[2021-03-06 08:10] LABS: Calcium 9.4 mg/dL (8.6-10.3); Potassium 3.6 mEq/L (3.5-5.1)
[2021-03-06] MEDS: hydrALAZINE 25 MG TABLET PO SCH ×3 (08:59→21:26)
[2021-03-06] MEDS: Isosorbide MONOnitrate (24 HR) 30 MG TAB.ER.24H PO SCH (08:59)
[2021-03-06] MEDS: Acetaminophen 325 MG TABLET PO PRN (23:50)
[2021-03-06] MEDS: traZODone 50 MG TABLET PO PRN (23:51)
[2021-03-07 02:17] LABS: Hematocrit 23.6 % (37.5-50.1); Hemoglobin 7.4 g/dL (12.9-16.9); Mean Corpuscular HGB Conc 31.4 g/dL (31.6-35.5); Mean Corpuscular Volume 92.5 fL (83.0-100.0); Mean Platelet Volume 9.1 fL (9.4-12.4); Platelet Count 102 K/mcL (140-400); Red Blood Count 2.55 M/mcL (4.19-5.50); Red Cell Distribution Width 18.9 % (11.5-14.5)
[2021-03-07 02:42] LABS: Calcium 9.1 mg/dL (8.6-10.3); Potassium 3.8 mEq/L (3.5-5.1)
[2021-03-07 02:45] LABS: Magnesium 2.2 mg/dL (1.6-2.6); Phosphorous 5.7 mg/dL (2.7-4.5)
[2021-03-07] MEDS: hydrALAZINE 25 MG TABLET PO SCH ×3 (07:49→21:23)
[2021-03-07] MEDS ORDERED: *HR* Heparin 10,000 UNIT/10 ML VIAL IV PRN ×2 (07:52)
[2021-03-07] MEDS ORDERED: 0.9 % Sodium Chloride 250 ML IVC PRN (07:52)
[2021-03-07] MEDS ORDERED: 0.9 % Sodium Chloride 1,000 ML PRIME SCH (08:00)
[2021-03-07] MEDS: Isosorbide MONOnitrate (24 HR) 30 MG TAB.ER.24H PO SCH (13:50)
[2021-03-07] MEDS ORDERED: Darbepoetin 100 MCG/0.5 ML SYRINGE SQ SCH ×2 (14:38→14:45)
[2021-03-07] MEDS: Acetaminophen 325 MG TABLET PO PRN (21:28)
[2021-03-07] MEDS: traZODone 50 MG TABLET PO PRN (21:29)
[2021-03-08 03:14] LABS: Hemoglobin 8.1 g/dL (12.9-16.9); Mean Corpuscular HGB Conc 31.2 g/dL (31.6-35.5); Mean Corpuscular Hemoglobin 28.9 pg (28.0-33.3); Mean Corpuscular Volume 92.9 fL (83.0-100.0); Mean Platelet Volume 8.9 fL (9.4-12.4); Platelet Count 115 K/mcL (140-400); White Blood Count 5.4 K/mcL (4.3-11.1)
[2021-03-08 03:34] LABS: Calcium 9.1 mg/dL (8.6-10.3); Magnesium 2.1 mg/dL (1.6-2.6); Phosphorous 4.2 mg/dL (2.7-4.5)
[2021-03-08] MEDS: Isosorbide MONOnitrate (24 HR) 30 MG TAB.ER.24H PO SCH (08:05)
[2021-03-08] MEDS: hydrALAZINE 25 MG TABLET PO SCH ×3 (08:05→21:37)
[2021-03-08] MEDS ORDERED: carvediloL 6.25 MG TABLET PO SCH (17:00)
[2021-03-08] MEDS: traZODone 50 MG TABLET PO PRN (21:37)
[2021-03-08] MEDS: Acetaminophen 325 MG TABLET PO PRN (21:40)
[2021-03-08] MEDS: Melatonin 3 MG TABLET PO PRN (21:40)
[2021-03-09 04:33] LABS: Hematocrit 25.5 % (37.5-50.1); Hemoglobin 8.1 g/dL (12.9-16.9); Mean Corpuscular HGB Conc 31.8 g/dL (31.6-35.5); Mean Corpuscular Hemoglobin 29.5 pg (28.0-33.3); Mean Corpuscular Volume 92.7 fL (83.0-100.0); Platelet Count 121 K/mcL (140-400); Red Blood Count 2.75 M/mcL (4.19-5.50); Red Cell Distribution Width 18.2 % (11.5-14.5); White Blood Count 5.2 K/mcL (4.3-11.1)
[2021-03-09 04:53] LABS: Magnesium 2.3 mg/dL (1.6-2.6); Phosphorous 4.9 mg/dL (2.7-4.5)
[2021-03-09 04:54] LABS: Calcium 9.3 mg/dL (8.6-10.3); Potassium 3.7 mEq/L (3.5-5.1)
[2021-03-09] MEDS ORDERED: *HR* Heparin 10,000 UNIT/10 ML VIAL IV PRN (07:34)
[2021-03-09] MEDS ORDERED: 0.9 % Sodium Chloride 250 ML IVC PRN (07:34)
[2021-03-09 07:44] VITALS: PULSE 78; O2SAT 95
[2021-03-09] MEDS: *HR* Heparin 10,000 UNIT/10 ML VIAL IV PRN ×2 (08:05→11:37)
[2021-03-09] MEDS ORDERED: Aspirin 81 MG TAB.CHEW PO SCH (09:00)
[2021-03-09 11:43] VITALS: BP 149/74; TEMP 98
== END 2021-03-09 13:43 | DRG 673 ==
LOC: 2ANU 13:37 → EMEROOARM 13:37 → SUATTDRO 17:55 → 2ANU 18:41 → SUATTDRO 02-16 16:41
PROVIDERS: ADMIT Internal Medicine; ATTEND Internal Medicine
PROC: IRPERMA (2021-03-01 12:00)

== ENCOUNTER 2021-04-11 15:35 | Inpatient (IN) ==
[2021-04-11] MEDS ORDERED: cefTRIAXone 1,000 MG in Water for inj. (sterile) 10 ML IVP ONE (15:54)
[2021-04-11 16:11] LABS: VBG HCO3 20 mEq/L (21-27); VBG PCO2 40 mmHg (41-51); VBG PH 7.32 pH Units (7.32-7.42); VBG PO2 148 mmHg (25-50)
[2021-04-11 16:20] LABS: Red Cell Distribution Width 18.3 % (11.5-14.5)
[2021-04-11 16:22] LABS: Basophils % 0.3 %; Eosinophils # 0.1 K/mcL (0.0-0.6); Eosinophils % 1.8 %; Hematocrit 23.4 % (37.5-50.1); Immature Granulocytes % 1.4 % (0-4); Lymphocytes # 0.4 K/mcL (0.6-4.6); Lymphocytes % 5.7 %; Mean Corpuscular HGB Conc 29.9 g/dL (31.6-35.5); Mean Corpuscular Hemoglobin 27.7 pg (28.0-33.3); Mean Corpuscular Volume 92.5 fL (83.0-100.0); Monocytes # 0.7 K/mcL (0.0-1.3); Monocytes % 8.8 %; Neutrophils # 6.3 K/mcL (1.6-8.9); Nucleated Red Blood Cells 0.3 /100 WBC (0); Platelet Count 97 K/mcL (140-400); Red Blood Count 2.53 M/mcL (4.19-5.50); White Blood Count 7.7 K/mcL (4.3-11.1)
[2021-04-11 16:39] LABS: Alanine Aminotransferase 10 Units/L (7-52); Albumin 3.7 g/dL (3.5-5.7); Albumin/Globulin Ratio 1.1 (1.1-2.2); Alkaline Phosphatase 122 Units/L (34-104); Aspartate Amino Transferase 22 Units/L (13-39); BUN/Creatinine Ratio 24 (6-26); Bilirubin,Direct 0.4 mg/dL (0.0-0.2); Bilirubin,Indirect 0.8 mg/dL (0.0-1.0); Bilirubin,Total 1.2 mg/dL (0.3-1.0); Blood Urea Nitrogen 67 mg/dL (8-23); Carbon Dioxide 20 mEq/L (23-29); Chloride 110 mEq/L (98-107); Globulin 3.4 g/dL (2.4-3.5); Glucose 101 mg/dL (70-105); Osmolality,Calculated 308 (280-300); Potassium 4.4 mEq/L (3.5-5.1); Sodium 139 mEq/L (136-145); Total Protein 7.1 g/dL (6.4-8.9); Troponin I < 0.03 ng/mL (< 0.04); eGFR For African Americans 27 (> 60); eGFR For Non-African Americans 22 (> 60)
[2021-04-11 16:55] LABS: Platelet Estimate Decreased (Normal)
[2021-04-11 17:09] LABS: INR 1.3
[2021-04-11 17:12] LABS: Activated Partial Thrombo Time 49.4 Seconds (26.0-36.0)
[2021-04-11 20:11] LABS: Influenza A PCR Negative (Negative); Influenza B PCR Negative (Negative); Resp. Syncytial Virus PCR Negative (Negative)
[2021-04-11] MEDS ORDERED: Isovue-370 500 ML BOTTLE IVP ONE (20:12)
[2021-04-11 20:18] LABS: SARS-CoV-2 by PCR (In House) Negative (Negative)
[2021-04-11] MEDS ORDERED: Azithromycin 500 MG in 0.9 % Sodium Chloride 250 ML IVPB ONE (22:41)
[2021-04-12] MEDS ORDERED: Ondansetron 4 MG/2 ML VIAL IVP PRN (00:25)
[2021-04-12] MEDS ORDERED: Naloxone 0.4 MG/ML INJ IVP PRN (00:25)
[2021-04-12] MEDS ORDERED: Acetaminophen 325 MG TABLET PO PRN (00:25)
[2021-04-12] MEDS ORDERED: Ipratropium 1 PUFF INHALER IH PRN (00:28)
[2021-04-12 02:53] LABS: Hemoglobin 6.7 g/dL (12.9-16.9)
[2021-04-12 02:55] LABS: Hematocrit 22.5 % (37.5-50.1); Immature Platelets 1.9 % (1.1-6.1); Mean Corpuscular HGB Conc 29.8 g/dL (31.6-35.5); Mean Corpuscular Hemoglobin 27.8 pg (28.0-33.3); Mean Corpuscular Volume 93.4 fL (83.0-100.0); Mean Platelet Volume 9.8 fL (9.4-12.4); Red Blood Count 2.41 M/mcL (4.19-5.50); Red Cell Distribution Width 18.2 % (11.5-14.5); White Blood Count 6.6 K/mcL (4.3-11.1)
[2021-04-12 03:04] LABS: Fibrinogen 381 mg/dL (169-393)
[2021-04-12 03:06] LABS: D-Dimer 827 ng/mLFEU (0-500)
[2021-04-12 03:24] LABS: Calcium 8.4 mg/dL (8.6-10.3); Potassium 4.8 mEq/L (3.5-5.1)
[2021-04-12 05:56] LABS: % Iron Saturation 7 % (20-55); Iron 18 mcg/dL (65-175); Transferrin 184 mg/dL (203-362)
[2021-04-12 06:18] LABS: Folate 9.7 ng/mL (3.0-16.0)
[2021-04-12 06:19] LABS: Vitamin B12 856 pg/mL (250-1100)
[2021-04-12] MEDS ORDERED: Furosemide 20 MG/2 ML VIAL IVP ONE (06:30)
[2021-04-12] MEDS ORDERED: 0.9 % Sodium Chloride 500 ML ONE (07:25)
[2021-04-12] MEDS ORDERED: 0.9 % Sodium Chloride 250 ML IVC PRN (09:05)
[2021-04-12] MEDS ORDERED: *HR* Heparin 10,000 UNIT/10 ML VIAL IV PRN (09:05)
[2021-04-12] MEDS ORDERED: 0.9 % Sodium Chloride 1,000 ML PRIME SCH (09:15)
[2021-04-12] MEDS ORDERED: Lidocaine HCL 4 ML Topical Solution (Laryng-O-Jet Kit Sterile Pak) TP ONE (10:06)
[2021-04-12] MEDS ORDERED: Lidocaine -MPF 2% 5 ML VIAL ONE (10:06)
[2021-04-12] MEDS ORDERED: *HR* Succinylcholine 200 MG/10 ML VIAL IVP ONE (10:06)
[2021-04-12] MEDS ORDERED: *HR* Propofol 200 MG/20 ML VIAL IVP ONE (10:06)
[2021-04-12] MEDS ORDERED: Ondansetron 4 MG/2 ML VIAL ONE (10:06)
[2021-04-12 10:11] LABS: Hepatitis B Surface Antibody < 3.10 mIU/mL
[2021-04-12 10:21] LABS: Hepatitis B Surface Antigen Nonreactive (Nonreactive)
[2021-04-12] MEDS ORDERED: *HR* Etomidate 40 MG/20 ML VIAL IVP ONE (10:48)
[2021-04-12 10:53] LABS: Adenovirus Not Detected (Not Detect); Bordetella Pertussis Not Detected (Not Detect); Chlamydophila pneumoniae Not Detected (Not Detect); Coronavirus 229E Not Detected (Not Detect); Coronavirus HKU1 Not Detected (Not Detect); Coronavirus NL63 Not Detected (Not Detect); Coronavirus OC43 Not Detected (Not Detect); Human Metapneumovirus Not Detected (Not Detect); Human Rhinovirus/Enterovirus Not Detected (Not Detect); Influenza A Subtype 2009 H1 Not Detected (Not Detect); Influenza B Not Detected (Not Detect); Mycoplasma pneumoniae Not Detected (Not Detect); Parainfluenza Virus 1 Not Detected (Not Detect); Parainfluenza Virus 2 Not Detected (Not Detect); Parainfluenza Virus 3 Not Detected (Not Detect); Parainfluenza Virus 4 Not Detected (Not Detect); Respiratory Syncytial Virus Not Detected (Not Detect); SARS-CoV-2 Not Detected (Not Detect)
[2021-04-12] MEDS ORDERED: Albuterol 2.5 MG/3 ML NEBULIZER ONE (11:07)
[2021-04-12] MEDS ORDERED: EPHEDrine 50 MG/ML VIAL ONE (12:00)
[2021-04-12] MEDS ORDERED: *HR* EPINEPHrine 1 MG/10 ML SYRINGE INTRATRACH PRN (12:03)
[2021-04-12] MEDS ORDERED: *HR* EPINEPHrine 1 MG/10 ML SYRINGE ONE (12:18)
[2021-04-12 14:47] LABS: ABG Base Excess -9 mEq/L (-2 to 3); ABG HCO3 23 mEq/L (21-27); ABG Oxygen Saturation 85 % (95-98); ABG PCO2 107 mmHg (35-45); ABG PH 6.95 pH Units (7.32-7.45); ABG PO2 82 mmHg (85-104); ABG TCO2 27 mEq/L (20-26)
[2021-04-12 15:24] LABS: Hematocrit 25.4 % (37.5-50.1); Hemoglobin 7.3 g/dL (12.9-16.9)
[2021-04-12 16:56] LABS: Appearance of Body Fluid Cloudy (Clear); Volume of Body Fluid 21 mL
[2021-04-12 16:57] LABS: ABG Base Excess -9 mEq/L (-2 to 3); ABG HCO3 22 mEq/L (21-27); ABG Oxygen Saturation 86 % (95-98); ABG PCO2 84 mmHg (35-45); ABG PH 7.02 pH Units (7.32-7.45); ABG PO2 78 mmHg (85-104); ABG TCO2 25 mEq/L (20-26); Blood Gas Modality BiLevel; Blood Gas VT 500 cc
[2021-04-12] MEDS: cefTRIAXone 1,000 MG in 0.9 % Sodium Chloride Mini Bag 100 ML IVPB SCH (20:01)
[2021-04-12] MEDS: Azithromycin 500 MG in 0.9 % Sodium Chloride 250 ML IVPB SCH (20:26)
[2021-04-12 20:53] LABS: ABG Base Excess -10 mEq/L (-2 to 3); ABG HCO3 20 mEq/L (21-27); ABG Oxygen Saturation 80 % (95-98); ABG PCO2 69 mmHg (35-45); ABG PH 7.07 pH Units (7.32-7.45); ABG PO2 63 mmHg (85-104); ABG TCO2 22 mEq/L (20-26)
[2021-04-12 23:25] LABS: ABG Base Excess -9 mEq/L (-2 to 3); ABG HCO3 23 mEq/L (21-27); ABG Oxygen Saturation 100 % (95-98); ABG PCO2 108 mmHg (35-45); ABG PH 6.94 pH Units (7.32-7.45); ABG PO2 322 mmHg (85-104); ABG TCO2 27 mEq/L (20-26)
[2021-04-13 01:14] LABS: ABG Base Excess -9 mEq/L (-2 to 3); ABG HCO3 20 mEq/L (21-27); ABG Oxygen Saturation 92 % (95-98); ABG PCO2 65 mmHg (35-45); ABG PO2 88 mmHg (85-104); ABG TCO2 22 mEq/L (20-26)
[2021-04-13 01:25] LABS: Basophils % 0.2 %; Hemoglobin 7.1 g/dL (12.9-16.9); Red Cell Distribution Width 18.1 % (11.5-14.5)
[2021-04-13 01:27] LABS: Eosinophils % 0.4 %; Hematocrit 24.2 % (37.5-50.1); Immature Granulocytes % 2.2 % (0-4); Immature Platelets 4.3 % (1.1-6.1); Lymphocytes # 0.3 K/mcL (0.6-4.6); Mean Corpuscular HGB Conc 29.3 g/dL (31.6-35.5); Mean Corpuscular Hemoglobin 27.7 pg (28.0-33.3); Mean Corpuscular Volume 94.5 fL (83.0-100.0); Mean Platelet Volume 9.9 fL (9.4-12.4); Monocytes # 0.7 K/mcL (0.0-1.3); Monocytes % 7.2 %; Neutrophils # 8.2 K/mcL (1.6-8.9); Nucleated Red Blood Cells 0.5 /100 WBC (0); Red Blood Count 2.56 M/mcL (4.19-5.50); White Blood Count 9.4 K/mcL (4.3-11.1)
[2021-04-13 01:30] LABS: Platelet Count 82 K/mcL (140-400)
[2021-04-13 03:48] LABS: Calcium 8.3 mg/dL (8.6-10.3); Magnesium 2.6 mg/dL (1.6-2.6); Phosphorous 8.9 mg/dL (2.7-4.5); Potassium 5.5 mEq/L (3.5-5.1)
[2021-04-13 04:52] LABS: ABG Base Excess -9 mEq/L (-2 to 3); ABG HCO3 22 mEq/L (21-27); ABG Oxygen Saturation 92 % (95-98); ABG PCO2 79 mmHg (35-45); ABG PH 7.04 pH Units (7.32-7.45); ABG PO2 94 mmHg (85-104); ABG TCO2 24 mEq/L (20-26); Blood Gas VT 550 cc
[2021-04-13] MEDS: cefTRIAXone 1,000 MG in 0.9 % Sodium Chloride Mini Bag 100 ML IVPB SCH (08:46)
[2021-04-13 09:04] LABS: ABG Base Excess -8 mEq/L (-2 to 3); ABG HCO3 21 mEq/L (21-27); ABG Oxygen Saturation 88 % (95-98); ABG PCO2 70 mmHg (35-45); ABG PH 7.09 pH Units (7.32-7.45); ABG PO2 75 mmHg (85-104); ABG TCO2 24 mEq/L (20-26); Blood Gas Modality NIV; Blood Gas VT 550 cc
[2021-04-13] MEDS ORDERED: *HR* Alteplase (Cathflo) 2 MG VIAL IVP PRN (11:18)
[2021-04-13] MEDS ORDERED: 0.9 % Sodium Chloride 1,000 ML PRIME ONE ×2 (11:18)
[2021-04-13] MEDS ORDERED: 0.9 % Sodium Chloride 1,000 ML PRIME SCH (11:30)
[2021-04-13 12:29] LABS: Calcium 8.2 mg/dL (8.6-10.3); Potassium 5.9 mEq/L (3.5-5.1)
[2021-04-13 12:37] LABS: ABG Base Excess -11 mEq/L (-2 to 3); ABG HCO3 20 mEq/L (21-27); ABG Oxygen Saturation 82 % (95-98); ABG PCO2 79 mmHg (35-45); ABG PO2 70 mmHg (85-104); ABG TCO2 22 mEq/L (20-26); Blood Gas Modality NIV; Blood Gas VT 550 cc
[2021-04-13 14:48] LABS: Sodium, Urine 21.5 mEq/L
[2021-04-13 14:55] LABS: Bilirubin,Urine Negative (Negative); Blood,Urine Negative (Negative); Clarity,Urine Clear (Clear); Color,Urine Yellow (Yellow); Glucose,Urine (UA) Normal (Normal); Ketones,Urine Negative (Negative); Leukocyte Esterase,Urine Small (Negative); Mucus,Urine Few per lpf (None-Few); Nitrite,Urine Negative (Negative); Protein,Urine 30 mg/dL (Neg-Trace); RBC,Urine 0-3 per hpf (0-3); Specific Gravity,Urine 1.027 (1.010-1.025); Urobilinogen,Urine Normal (Normal); WBC,Urine 0-3 per hpf (0-3)
[2021-04-13] MEDS: PrismaSATE BGK 4/2.5 5,000 ML CRRT SCH ×4 (15:50→20:55)
[2021-04-13 19:59] LABS: ABG Base Excess -9 mEq/L (-2 to 3); ABG HCO3 21 mEq/L (21-27); ABG Oxygen Saturation 89 % (95-98); ABG PCO2 75 mmHg (35-45); ABG PH 7.06 pH Units (7.32-7.45); ABG PO2 81 mmHg (85-104); ABG TCO2 23 mEq/L (20-26); Blood Gas Modality AVAPS; Blood Gas VT 550 cc
[2021-04-13] MEDS: Azithromycin 500 MG in 0.9 % Sodium Chloride 250 ML IVPB SCH (20:00)
[2021-04-14] MEDS: PrismaSATE BGK 4/2.5 5,000 ML CRRT SCH ×8 (01:50→22:20)
[2021-04-14 04:19] LABS: Hematocrit 24.2 % (37.5-50.1); Mean Corpuscular Volume 98.4 fL (83.0-100.0); Red Blood Count 2.46 M/mcL (4.19-5.50); Red Cell Distribution Width 17.7 % (11.5-14.5)
[2021-04-14 04:21] LABS: Basophils % 0.1 %; Immature Platelets 3.4 % (1.1-6.1); Lymphocytes # 0.2 K/mcL (0.6-4.6); Lymphocytes % 2.9 %; Mean Corpuscular HGB Conc 28.9 g/dL (31.6-35.5); Mean Corpuscular Hemoglobin 28.5 pg (28.0-33.3); Mean Platelet Volume 10.1 fL (9.4-12.4); Monocytes # 0.3 K/mcL (0.0-1.3); Monocytes % 3.8 %; Nucleated Red Blood Cells 0.7 /100 WBC (0); Segmented Neutrophils % 92.2 %; White Blood Count 8.3 K/mcL (4.3-11.1)
[2021-04-14 04:26] LABS: Neutrophils # 7.7 K/mcL (1.6-8.9); Platelet Count 87 K/mcL (140-400)
[2021-04-14 04:43] LABS: ABG Base Excess -6 mEq/L (-2 to 3); ABG HCO3 25 mEq/L (21-27); ABG Oxygen Saturation 95 % (95-98); ABG PCO2 90 mmHg (35-45); ABG PH 7.04 pH Units (7.32-7.45); ABG PO2 109 mmHg (85-104); ABG TCO2 27 mEq/L (20-26); Blood Gas Modality AVAPS
[2021-04-14 04:48] LABS: Anisocytosis 1+ (Not Present)
[2021-04-14 04:49] LABS: Basophilic Stippling 1+ (Not Present); Calcium 7.7 mg/dL (8.6-10.3); Hypochromasia Present (Not Present); Magnesium 2.5 mg/dL (1.6-2.6); Phosphorous 6.8 mg/dL (2.7-4.5); Platelet Estimate Decreased (Normal); Potassium 5.9 mEq/L (3.5-5.1)
[2021-04-14] MEDS ORDERED: Artificial Tears SOLN 15 ML BOTTLE BOTH EYES PRN (06:00)
[2021-04-14] MEDS ORDERED: *HR* Heparin 5,000 UNIT/ML VIAL ONE (06:47)
[2021-04-14] MEDS: *HR* Heparin 5,000 UNIT/ML VIAL IVP PRN (07:00)
[2021-04-14] MEDS: FentaNYL (PF) 1,000 MCG/100 ML IV.SOLN IVC SCH ×2 (07:17→19:30)
[2021-04-14] MEDS: Artificial Tears SOLN 15 ML BOTTLE BOTH EYES SCH ×4 (07:52→20:01)
[2021-04-14] MEDS: Aspirin 81 MG TAB.CHEW PO SCH (07:52)
[2021-04-14] MEDS: Chlorhexidine Rinse 15 ML MOUTHWASH MM SCH ×2 (07:53→20:02)
[2021-04-14] MEDS: Pantoprazole 40 MG VIAL IVP SCH (07:53)
[2021-04-14] MEDS: cefTRIAXone 1,000 MG in 0.9 % Sodium Chloride Mini Bag 100 ML IVPB SCH (07:53)
[2021-04-14 09:04] LABS: ABG Base Excess -4 mEq/L (-2 to 3); ABG HCO3 24 mEq/L (21-27); ABG Oxygen Saturation 97 % (95-98); ABG PCO2 53 mmHg (35-45); ABG PH 7.26 pH Units (7.32-7.45); ABG PO2 107 mmHg (85-104); ABG TCO2 25 mEq/L (20-26); Blood Gas Modality ASSIST CONTROL; Blood Gas VT 480 cc
[2021-04-14] MEDS ORDERED: Calcium Gluconate 1gm/50mL 1 GM/50 ML BAG IVPB PRN ×2 (10:00)
[2021-04-14] MEDS ORDERED: *HR* Heparin 5,000 UNIT/ML VIAL IVP PRN (10:00)
[2021-04-14 11:34] LABS: VBG Ionized Calcium 1.06 mmol/L (1.15-1.35)
[2021-04-14] MEDS: Calcium Chloride 4,000 MG in 0.9 % Sodium Chloride 1,000 ML CRRT SCH (12:43)
[2021-04-14 12:56] LABS: INR 1.3; Prothrombin Time 14.7 Seconds (9.4-12.1)
[2021-04-14 13:09] LABS: Activated Partial Thrombo Time 45.2 Seconds (26.0-36.0)
[2021-04-14 14:46] LABS: VBG Ionized Calcium 1.06 mmol/L (1.15-1.35)
[2021-04-14 16:41] LABS: VBG Ionized Calcium 1.08 mmol/L (1.15-1.35)
[2021-04-14 18:56] LABS: VBG Ionized Calcium 1.07 mmol/L (1.15-1.35)
[2021-04-14] MEDS: Azithromycin 500 MG in 0.9 % Sodium Chloride 250 ML IVPB SCH (20:02)
[2021-04-14] MEDS ORDERED: 0.9 % Sodium Chloride 250 ML ONE (20:59)
[2021-04-14 21:22] LABS: VBG Ionized Calcium 1.12 mmol/L (1.15-1.35)
[2021-04-15] MEDS: Artificial Tears SOLN 15 ML BOTTLE BOTH EYES SCH ×6 (00:05→20:17)
[2021-04-15] MEDS: PrismaSATE BGK 4/2.5 5,000 ML CRRT SCH ×8 (03:20→19:37)
[2021-04-15 03:46] LABS: VBG Ionized Calcium 1.18 mmol/L (1.15-1.35)
[2021-04-15 04:00] LABS: Albumin 2.9 g/dL (3.5-5.7); Albumin/Globulin Ratio 0.9 (1.1-2.2); Bilirubin,Direct 0.4 mg/dL (0.0-0.2); Bilirubin,Indirect 0.4 mg/dL (0.0-1.0); Bilirubin,Total 0.8 mg/dL (0.3-1.0); Calcium 8.6 mg/dL (8.6-10.3); Globulin 3.1 g/dL (2.4-3.5); Potassium 4.7 mEq/L (3.5-5.1)
[2021-04-15 05:28] LABS: ABG Base Excess 5 mEq/L (-2 to 3); ABG HCO3 37 mEq/L (21-27); ABG Oxygen Saturation 83 % (95-98); ABG PCO2 95 mmHg (35-45); ABG PO2 61 mmHg (85-104); ABG TCO2 40 mEq/L (20-26); Blood Gas Modality ASSIST CONTROL; Blood Gas VT 450 cc
[2021-04-15] MEDS: FentaNYL (PF) 1,000 MCG/100 ML IV.SOLN IVC SCH ×2 (05:45→14:00)
[2021-04-15 06:11] LABS: Magnesium 2.4 mg/dL (1.6-2.6); Phosphorous 3.1 mg/dL (2.7-4.5)
[2021-04-15] MEDS: Chlorhexidine Rinse 15 ML MOUTHWASH MM SCH ×2 (09:14→20:17)
[2021-04-15] MEDS: Aspirin 81 MG TAB.CHEW PO SCH (09:14)
[2021-04-15] MEDS: Pantoprazole 40 MG VIAL IVP SCH (09:15)
[2021-04-15] MEDS: cefTRIAXone 1,000 MG in 0.9 % Sodium Chloride Mini Bag 100 ML IVPB SCH (09:15)
[2021-04-15] MEDS: Calcium Chloride 4,000 MG in 0.9 % Sodium Chloride 1,000 ML CRRT SCH (09:30)
[2021-04-15 10:42] LABS: Eosinophils % 0.1 %; Hematocrit 20.7 % (37.5-50.1); Hemoglobin 6.4 g/dL (12.9-16.9); Lymphocytes # 0.5 K/mcL (0.6-4.6); Lymphocytes % 5.3 %; Mean Corpuscular HGB Conc 30.9 g/dL (31.6-35.5); Mean Corpuscular Hemoglobin 27.8 pg (28.0-33.3); Mean Platelet Volume 9.6 fL (9.4-12.4); Monocytes # 0.8 K/mcL (0.0-1.3); Monocytes % 8.5 %; Nucleated Red Blood Cells 2.2 /100 WBC (0); Red Cell Distribution Width 17.6 % (11.5-14.5); Segmented Neutrophils % 85.1 %; White Blood Count 9.7 K/mcL (4.3-11.1)
[2021-04-15 10:43] LABS: Neutrophils # 8.3 K/mcL (1.6-8.9); Platelet Count 86 K/mcL (140-400)
[2021-04-15] MEDS ORDERED: 0.9 % Sodium Chloride 500 ML ONE (13:38)
[2021-04-15 17:34] LABS: VBG Ionized Calcium 1.24 mmol/L (1.15-1.35)
[2021-04-15 19:04] LABS: Hematocrit 23.7 % (37.5-50.1); Hemoglobin 7.3 g/dL (12.9-16.9)
[2021-04-15] MEDS: Azithromycin 500 MG in 0.9 % Sodium Chloride 250 ML IVPB SCH (20:16)
[2021-04-16 00:15] LABS: VBG Ionized Calcium 1.17 mmol/L (1.15-1.35)
[2021-04-16] MEDS: Artificial Tears SOLN 15 ML BOTTLE BOTH EYES SCH ×7 (00:30→23:15)
[2021-04-16] MEDS: PrismaSATE BGK 4/2.5 5,000 ML CRRT SCH ×4 (00:37→08:20)
[2021-04-16 05:02] LABS: Eosinophils % 0.1 %; Hematocrit 23.9 % (37.5-50.1); Hemoglobin 7.5 g/dL (12.9-16.9); Mean Corpuscular HGB Conc 31.4 g/dL (31.6-35.5); Nucleated Red Blood Cells 1.1 /100 WBC (0)
[2021-04-16 05:04] LABS: Immature Granulocytes % 1.4 % (0-4); Immature Platelets 1.6 % (1.1-6.1); Lymphocytes # 0.5 K/mcL (0.6-4.6); Lymphocytes % 4.9 %; Mean Corpuscular Hemoglobin 28.1 pg (28.0-33.3); Mean Corpuscular Volume 89.5 fL (83.0-100.0); Mean Platelet Volume 9.5 fL (9.4-12.4); Monocytes # 0.8 K/mcL (0.0-1.3); Monocytes % 8.3 %; Neutrophils # 8.2 K/mcL (1.6-8.9); Red Blood Count 2.67 M/mcL (4.19-5.50); Red Cell Distribution Width 17.3 % (11.5-14.5); Segmented Neutrophils % 85.3 %; White Blood Count 9.6 K/mcL (4.3-11.1)
[2021-04-16 05:09] LABS: Calcium 9.7 mg/dL (8.6-10.3); Magnesium 2.3 mg/dL (1.6-2.6); Phosphorous 2.6 mg/dL (2.7-4.5); Potassium 4.4 mEq/L (3.5-5.1)
[2021-04-16] MEDS: *HR* Heparin 5,000 UNIT/ML VIAL IVP PRN (05:32)
[2021-04-16 05:37] LABS: Platelet Count 98 K/mcL (140-400)
[2021-04-16 06:00] LABS: ABG Base Excess 4 mEq/L (-2 to 3); ABG HCO3 28 mEq/L (21-27); ABG Oxygen Saturation 100 % (95-98); ABG PCO2 37 mmHg (35-45); ABG PH 7.48 pH Units (7.32-7.45); ABG PO2 260 mmHg (85-104); ABG TCO2 29 mEq/L (20-26); Blood Gas Modality ASSIST CONTROL; Blood Gas VT 480 cc
[2021-04-16] MEDS: FentaNYL (PF) 1,000 MCG/100 ML IV.SOLN IVC SCH ×3 (06:42→15:00)
[2021-04-16] MEDS: Calcium Chloride 4,000 MG in 0.9 % Sodium Chloride 1,000 ML CRRT SCH (07:01)
[2021-04-16] MEDS: Chlorhexidine Rinse 15 ML MOUTHWASH MM SCH ×2 (07:24→19:58)
[2021-04-16] MEDS: Pantoprazole 40 MG VIAL IVP SCH (07:24)
[2021-04-16] MEDS: Aspirin 81 MG TAB.CHEW PO SCH (07:24)
[2021-04-16] MEDS: cefTRIAXone 1,000 MG in 0.9 % Sodium Chloride Mini Bag 100 ML IVPB SCH (07:25)
[2021-04-16] MEDS ORDERED: *HR* Heparin 5,000 UNIT/ML VIAL ONE (12:39)
[2021-04-16 18:36] LABS: Calcium 9.1 mg/dL (8.6-10.3); Magnesium 2.2 mg/dL (1.6-2.6); Phosphorous 3.6 mg/dL (2.7-4.5); Potassium 4.9 mEq/L (3.5-5.1)
[2021-04-16] MEDS: Azithromycin 500 MG in 0.9 % Sodium Chloride 250 ML IVPB SCH (19:58)
[2021-04-17] MEDS: FentaNYL (PF) 1,000 MCG/100 ML IV.SOLN IVC SCH (00:40)
[2021-04-17] MEDS: Artificial Tears SOLN 15 ML BOTTLE BOTH EYES SCH ×2 (03:21→07:55)
[2021-04-17 03:40] LABS: Hematocrit 24.7 % (37.5-50.1); Hemoglobin 7.5 g/dL (12.9-16.9); Immature Platelets 1.6 % (1.1-6.1); Mean Corpuscular HGB Conc 30.4 g/dL (31.6-35.5); Mean Corpuscular Hemoglobin 27.6 pg (28.0-33.3); Mean Corpuscular Volume 90.8 fL (83.0-100.0); Mean Platelet Volume 9.2 fL (9.4-12.4); Red Blood Count 2.72 M/mcL (4.19-5.50); Red Cell Distribution Width 17.2 % (11.5-14.5); White Blood Count 10.1 K/mcL (4.3-11.1)
[2021-04-17 04:00] LABS: Albumin 2.9 g/dL (3.5-5.7); Bilirubin,Total 0.8 mg/dL (0.3-1.0); Globulin 2.8 g/dL (2.4-3.5); Potassium 4.8 mEq/L (3.5-5.1); Total Protein 5.7 g/dL (6.4-8.9)
[2021-04-17 04:16] LABS: ABG Base Excess 4 mEq/L (-2 to 3); ABG HCO3 29 mEq/L (21-27); ABG Oxygen Saturation 98 % (95-98); ABG PCO2 48 mmHg (35-45); ABG PO2 113 mmHg (85-104); ABG TCO2 31 mEq/L (20-26); Blood Gas VT 480 cc
[2021-04-17] MEDS ORDERED: 0.9 % Sodium Chloride 250 ML IVC PRN (07:18)
[2021-04-17] MEDS ORDERED: 0.9 % Sodium Chloride 1,000 ML PRIME SCH (07:30)
[2021-04-17] MEDS: Chlorhexidine Rinse 15 ML MOUTHWASH MM SCH (07:55)
[2021-04-17] MEDS: cefTRIAXone 1,000 MG in 0.9 % Sodium Chloride Mini Bag 100 ML IVPB SCH (07:55)
[2021-04-17] MEDS: Aspirin 81 MG TAB.CHEW PO SCH (07:56)
[2021-04-17] MEDS: Pantoprazole 40 MG VIAL IVP SCH (07:57)
[2021-04-17] MEDS: *HR* Heparin 5,000 UNIT/ML VIAL SQ SCH ×2 (13:47→21:46)
[2021-04-18 04:19] LABS: Basophils % 0.1 %; Hemoglobin 7.7 g/dL (12.9-16.9); Red Cell Distribution Width 17.1 % (11.5-14.5)
[2021-04-18 04:20] LABS: Eosinophils # 0.1 K/mcL (0.0-0.6); Eosinophils % 0.8 %; Hematocrit 24.4 % (37.5-50.1); Immature Granulocytes % 1.6 % (0-4); Immature Platelets 1.5 % (1.1-6.1); Lymphocytes # 0.6 K/mcL (0.6-4.6); Mean Corpuscular HGB Conc 31.6 g/dL (31.6-35.5); Mean Corpuscular Hemoglobin 28.2 pg (28.0-33.3); Mean Corpuscular Volume 89.4 fL (83.0-100.0); Mean Platelet Volume 8.9 fL (9.4-12.4); Monocytes # 0.7 K/mcL (0.0-1.3); Monocytes % 6.7 %; Neutrophils # 8.9 K/mcL (1.6-8.9); Nucleated Red Blood Cells 0.3 /100 WBC (0); Red Blood Count 2.73 M/mcL (4.19-5.50); Segmented Neutrophils % 84.8 %; White Blood Count 10.5 K/mcL (4.3-11.1)
[2021-04-18 04:29] LABS: Platelet Count 93 K/mcL (140-400)
[2021-04-18 04:39] LABS: Calcium 8.9 mg/dL (8.6-10.3); Potassium 4.3 mEq/L (3.5-5.1)
[2021-04-18] MEDS: *HR* Heparin 5,000 UNIT/ML VIAL SQ SCH ×3 (06:05→20:57)
[2021-04-18] MEDS ORDERED: cefTRIAXone 1,000 MG in Water for inj. (sterile) 10 ML IVP SCH (09:00)
[2021-04-18] MEDS: Aspirin 81 MG TAB.CHEW PO SCH (10:27)
[2021-04-18] MEDS: Pantoprazole 40 MG VIAL IVP SCH (10:29)
[2021-04-18] MEDS ORDERED: *HR* Alteplase (Cathflo) 2 MG VIAL IVP PRN (12:12)
[2021-04-18] MEDS ORDERED: Ondansetron 4 MG/2 ML VIAL IVP PRN (12:12)
[2021-04-18] MEDS ORDERED: Naloxone 0.4 MG/ML INJ IVP PRN (12:12)
[2021-04-18] MEDS ORDERED: Ipratropium 1 PUFF INHALER IH PRN (12:12)
[2021-04-18] MEDS ORDERED: amLODIPine 5 MG TABLET PO SCH (12:15)
[2021-04-18] MEDS ORDERED: Melatonin 3 MG TABLET PO ONE (19:48)
[2021-04-19 04:03] LABS: Mean Corpuscular Volume 89.9 fL (83.0-100.0); Mean Platelet Volume 9.1 fL (9.4-12.4)
[2021-04-19 04:05] LABS: Basophils % 0.1 %; Eosinophils % 0.5 %; Hematocrit 24.8 % (37.5-50.1); Hemoglobin 7.6 g/dL (12.9-16.9); Immature Granulocytes % 1.9 % (0-4); Immature Platelets 1.5 % (1.1-6.1); Lymphocytes # 0.7 K/mcL (0.6-4.6); Lymphocytes % 8.2 %; Mean Corpuscular HGB Conc 30.6 g/dL (31.6-35.5); Mean Corpuscular Hemoglobin 27.5 pg (28.0-33.3); Monocytes # 0.5 K/mcL (0.0-1.3); Monocytes % 6.4 %; Neutrophils # 6.9 K/mcL (1.6-8.9); Nucleated Red Blood Cells 0.2 /100 WBC (0); Red Blood Count 2.76 M/mcL (4.19-5.50); Red Cell Distribution Width 17.5 % (11.5-14.5); Segmented Neutrophils % 82.9 %; White Blood Count 8.3 K/mcL (4.3-11.1)
[2021-04-19 04:07] LABS: Platelet Count 95 K/mcL (140-400)
[2021-04-19 04:24] LABS: Calcium 8.7 mg/dL (8.6-10.3); Potassium 4.6 mEq/L (3.5-5.1)
[2021-04-19] MEDS: *HR* Heparin 5,000 UNIT/ML VIAL SQ SCH ×3 (06:16→21:31)
[2021-04-19] MEDS ORDERED: 0.9 % Sodium Chloride 250 ML IVC PRN (07:21)
[2021-04-19] MEDS ORDERED: *HR* Heparin 10,000 UNIT/10 ML VIAL IV PRN (07:39)
[2021-04-19] MEDS ORDERED: Pantoprazole 40 MG VIAL IVP SCH (09:00)
[2021-04-19] MEDS: Aspirin 81 MG TAB.CHEW PO SCH (09:48)
[2021-04-19] MEDS: amLODIPine 5 MG TABLET PO SCH (14:45)
[2021-04-19] MEDS: Isosorbide MONOnitrate (24 HR) 30 MG TAB.ER.24H PO SCH (14:46)
[2021-04-20 04:35] LABS: Calcium 8.5 mg/dL (8.6-10.3); Potassium 4.2 mEq/L (3.5-5.1)
[2021-04-20] MEDS: *HR* Heparin 5,000 UNIT/ML VIAL SQ SCH ×3 (06:33→21:05)
[2021-04-20] MEDS: Aspirin 81 MG TAB.CHEW PO SCH (08:42)
[2021-04-20] MEDS: amLODIPine 5 MG TABLET PO SCH (08:42)
[2021-04-20] MEDS: Isosorbide MONOnitrate (24 HR) 30 MG TAB.ER.24H PO SCH (08:42)
[2021-04-20] MEDS ORDERED: Furosemide 20 MG TABLET PO SCH (09:00)
[2021-04-20] MEDS: Furosemide 20 MG TABLET PO SCH (17:59)
[2021-04-21 04:20] LABS: Hematocrit 24.3 % (37.5-50.1); Hemoglobin 7.4 g/dL (12.9-16.9); Mean Corpuscular HGB Conc 30.5 g/dL (31.6-35.5); Mean Corpuscular Hemoglobin 27.9 pg (28.0-33.3); Mean Corpuscular Volume 91.7 fL (83.0-100.0); Mean Platelet Volume 9.7 fL (9.4-12.4); Platelet Count 107 K/mcL (140-400); Red Blood Count 2.65 M/mcL (4.19-5.50); Red Cell Distribution Width 18.3 % (11.5-14.5); White Blood Count 9.8 K/mcL (4.3-11.1)
[2021-04-21 04:32] LABS: Calcium 8.3 mg/dL (8.6-10.3)
[2021-04-21] MEDS ORDERED: *HR* Labetalol 20 MG/4 ML SYRINGE IVP ONE (04:40)
[2021-04-21] MEDS: Furosemide 20 MG TABLET PO SCH ×2 (05:02→17:09)
[2021-04-21] MEDS: *HR* Heparin 5,000 UNIT/ML VIAL SQ SCH ×3 (05:02→20:08)
[2021-04-21] MEDS: Isosorbide MONOnitrate (24 HR) 30 MG TAB.ER.24H PO SCH (08:01)
[2021-04-21] MEDS: amLODIPine 5 MG TABLET PO SCH (08:01)
[2021-04-21] MEDS: Aspirin 81 MG TAB.CHEW PO SCH (08:01)
[2021-04-21] MEDS: Acetaminophen 325 MG TABLET PO PRN (08:04)
[2021-04-22 04:20] LABS: Calcium 8.6 mg/dL (8.6-10.3); Potassium 3.7 mEq/L (3.5-5.1)
[2021-04-22] MEDS: *HR* Heparin 5,000 UNIT/ML VIAL SQ SCH ×3 (05:17→20:33)
[2021-04-22] MEDS: Furosemide 20 MG TABLET PO SCH ×2 (05:17→17:25)
[2021-04-22] MEDS: amLODIPine 5 MG TABLET PO SCH (07:51)
[2021-04-22] MEDS: Aspirin 81 MG TAB.CHEW PO SCH (07:51)
[2021-04-22] MEDS: Isosorbide MONOnitrate (24 HR) 30 MG TAB.ER.24H PO SCH (07:53)
[2021-04-23] MEDS: *HR* Heparin 5,000 UNIT/ML VIAL SQ SCH ×3 (05:10→19:57)
[2021-04-23] MEDS: Furosemide 20 MG TABLET PO SCH ×2 (05:10→17:34)
[2021-04-23 05:46] LABS: Calcium 8.7 mg/dL (8.6-10.3)
[2021-04-23] MEDS: Aspirin 81 MG TAB.CHEW PO SCH (09:33)
[2021-04-23] MEDS: Acetaminophen 325 MG TABLET PO PRN (09:33)
[2021-04-23] MEDS: amLODIPine 5 MG TABLET PO SCH (09:33)
[2021-04-23] MEDS: Isosorbide MONOnitrate (24 HR) 30 MG TAB.ER.24H PO SCH (09:33)
[2021-04-24] MEDS: *HR* Heparin 5,000 UNIT/ML VIAL SQ SCH ×3 (05:11→20:21)
[2021-04-24] MEDS: Furosemide 20 MG TABLET PO SCH ×2 (05:11→18:36)
[2021-04-24 05:50] LABS: Hematocrit 25.2 % (37.5-50.1); Hemoglobin 7.8 g/dL (12.9-16.9); Mean Corpuscular Hemoglobin 28.2 pg (28.0-33.3); Platelet Count 160 K/mcL (140-400); Red Blood Count 2.77 M/mcL (4.19-5.50); Red Cell Distribution Width 18.6 % (11.5-14.5); White Blood Count 8.9 K/mcL (4.3-11.1)
[2021-04-24 06:14] LABS: Calcium 8.9 mg/dL (8.6-10.3); Potassium 3.7 mEq/L (3.5-5.1)
[2021-04-24] MEDS: Aspirin 81 MG TAB.CHEW PO SCH (08:24)
[2021-04-24] MEDS: Isosorbide MONOnitrate (24 HR) 30 MG TAB.ER.24H PO SCH (08:25)
[2021-04-24] MEDS: amLODIPine 5 MG TABLET PO SCH (08:25)
[2021-04-24 10:49] LABS: Influenza A PCR Negative (Negative); Influenza B PCR Negative (Negative); Resp. Syncytial Virus PCR Negative (Negative)
[2021-04-24 10:54] LABS: SARS-CoV-2 by PCR (In House) Negative (Negative)
[2021-04-25] MEDS: Furosemide 20 MG TABLET PO SCH (05:54)
[2021-04-25] MEDS: *HR* Heparin 5,000 UNIT/ML VIAL SQ SCH (05:54)
[2021-04-25 06:34] VITALS: PULSE 73
[2021-04-25 06:38] LABS: Calcium 8.8 mg/dL (8.6-10.3); Potassium 3.7 mEq/L (3.5-5.1)
[2021-04-25] MEDS: amLODIPine 5 MG TABLET PO SCH (07:58)
[2021-04-25] MEDS: Aspirin 81 MG TAB.CHEW PO SCH (07:58)
[2021-04-25] MEDS: Isosorbide MONOnitrate (24 HR) 30 MG TAB.ER.24H PO SCH (07:58)
[2021-04-25 09:59] VITALS: BP 128/67; TEMP 98; O2SAT 95
== END 2021-04-25 12:40 | DRG 163 ==
LOC: 3BNU 15:35 → EMEROOARM 15:35 → SUATTDRO 23:53 → 3BNU 04-12 01:17 → 3NENU 04-12 12:04 → SUATTDRO 04-12 12:05 → 2NNU 04-13 08:30 → ICNU 04-13 14:26 → 2ANU 04-20 10:48
PROVIDERS: ADMIT Student in an Organized Health Care Education/Training Program; ATTEND Internal Medicine

== ENCOUNTER 2021-07-20 13:01 | Inpatient (IN) ==
[2021-07-20 14:09] LABS: Hematocrit 26.1 % (37.5-50.1); Hemoglobin 7.3 g/dL (12.9-16.9); Immature Platelets 3.3 % (1.1-6.1); Mean Corpuscular Hemoglobin 26.7 pg (28.0-33.3); Mean Corpuscular Volume 95.6 fL (83.0-100.0); Mean Platelet Volume 10.6 fL (9.4-12.4); Red Blood Count 2.73 M/mcL (4.19-5.50); Red Cell Distribution Width 22.5 % (11.5-14.5); White Blood Count 3.8 K/mcL (4.3-11.1)
[2021-07-20] MEDS ORDERED: Nitroglycerin 0.4 MG TAB.SUBL SL STA (14:09)
[2021-07-20] MEDS ORDERED: Furosemide 40 MG/4 ML VIAL IVP ONE (14:09)
[2021-07-20 14:15] LABS: Platelet Count 47 K/mcL (140-400)
[2021-07-20 14:27] LABS: Troponin I < 0.03 ng/mL (< 0.04)
[2021-07-20 14:46] LABS: BUN/Creatinine Ratio 24 (6-26); Blood Urea Nitrogen 60 mg/dL (8-23); Calcium 9.2 mg/dL (8.6-10.3); Carbon Dioxide 23 mEq/L (23-29); Chloride 106 mEq/L (98-107); Glucose 83 mg/dL (70-105); Osmolality,Calculated 306 (280-300); Potassium 3.9 mEq/L (3.5-5.1); Sodium 140 mEq/L (136-145); eGFR For African Americans 31 (> 60); eGFR For Non-African Americans 25 (> 60)
[2021-07-20 15:40] LABS: Basophils # 0.2 K/mcL (0.0-0.2); Hypochromasia Present (Not Present); Lymphocytes # 0.1 K/mcL (0.6-4.6); Monocytes # 0.2 K/mcL (0.0-1.3); Neutrophils # 3.3 K/mcL (1.6-8.9)
[2021-07-20 15:41] LABS: Anisocytosis 2+ (Not Present); Platelet Estimate Decreased (Normal); Poikilocytosis 1+ (Not Present)
[2021-07-20] MEDS ORDERED: Ondansetron ODT 4 MG TAB.RAPDIS SL PRN (17:20)
[2021-07-20] MEDS ORDERED: Naloxone 0.4 MG/ML INJ IVP PRN (17:20)
[2021-07-20] MEDS ORDERED: Doxycycline 100 MG CAPSULE PO SCH ×2 (17:30→23:15)
[2021-07-20 18:04] LABS: Iron 86 mcg/dL (65-175)
[2021-07-20] MEDS: Furosemide 40 MG/4 ML VIAL IVP SCH (23:06)
[2021-07-20] MEDS: Acetaminophen 325 MG TABLET PO PRN (23:20)
[2021-07-21 05:07] LABS: Immature Granulocytes % 0.3 % (0-4)
[2021-07-21 05:10] LABS: Basophils % 0.3 %; Eosinophils # 0.1 K/mcL (0.0-0.6); Eosinophils % 3.4 %; Hematocrit 25.8 % (37.5-50.1); Immature Platelets 4.1 % (1.1-6.1); Lymphocytes # 0.4 K/mcL (0.6-4.6); Lymphocytes % 10.5 %; Mean Corpuscular HGB Conc 27.1 g/dL (31.6-35.5); Mean Corpuscular Hemoglobin 26.6 pg (28.0-33.3); Mean Corpuscular Volume 98.1 fL (83.0-100.0); Mean Platelet Volume 9.6 fL (9.4-12.4); Monocytes # 0.4 K/mcL (0.0-1.3); Monocytes % 9.4 %; Neutrophils # 2.9 K/mcL (1.6-8.9); Red Blood Count 2.63 M/mcL (4.19-5.50); Red Cell Distribution Width 22.3 % (11.5-14.5); Segmented Neutrophils % 76.1 %; White Blood Count 3.8 K/mcL (4.3-11.1)
[2021-07-21 05:22] LABS: Platelet Count 43 K/mcL (140-400)
[2021-07-21 05:23] LABS: Calcium 8.8 mg/dL (8.6-10.3); Magnesium 2.2 mg/dL (1.6-2.6); Phosphorous 5.7 mg/dL (2.7-4.5); Potassium 4.1 mEq/L (3.5-5.1)
[2021-07-21] MEDS ORDERED: Aspirin 81 MG TAB.CHEW PO SCH (09:00)
[2021-07-21] MEDS ORDERED: amLODIPine 5 MG TABLET PO SCH (09:00)
[2021-07-21] MEDS ORDERED: Metoprolol XL (24 HR) Succ 25 MG TAB.ER.24H PO SCH (09:00)
[2021-07-21] MEDS: Isosorbide MONOnitrate (24 HR) 30 MG TAB.ER.24H PO SCH (09:20)
[2021-07-21] MEDS: Furosemide 40 MG/4 ML VIAL IVP SCH (09:20)
[2021-07-21] MEDS: Acetaminophen 325 MG TABLET PO PRN (09:44)
[2021-07-21] MEDS ORDERED: Perflutren Lipid Microsphere 1.3 ML in 0.9 % Sodium Chloride 8.7 ML IVP PRN ×2 (12:04→12:19)
[2021-07-21] MEDS: Nystatin POWDER 30 GM BOTTLE TP SCH (20:28)
[2021-07-21] MEDS ORDERED: Furosemide 80 MG in 0.9 % Sodium Chloride 50 ML IV SCH (21:00)
[2021-07-21] MEDS: hydrOXYzine pamoate 25 MG CAPSULE PO PRN (21:44)
[2021-07-21] MEDS: Melatonin 3 MG TABLET PO PRN (23:44)
[2021-07-22 02:55] LABS: Hemoglobin 7.3 g/dL (12.9-16.9); Mean Corpuscular Hemoglobin 26.6 pg (28.0-33.3); Red Blood Count 2.74 M/mcL (4.19-5.50); Red Cell Distribution Width 22.5 % (11.5-14.5)
[2021-07-22 02:57] LABS: Hematocrit 27.4 % (37.5-50.1); Immature Platelets 2.5 % (1.1-6.1); Mean Corpuscular HGB Conc 26.6 g/dL (31.6-35.5); Mean Platelet Volume 10.2 fL (9.4-12.4); White Blood Count 5.2 K/mcL (4.3-11.1)
[2021-07-22 03:16] LABS: Calcium 8.7 mg/dL (8.6-10.3); Magnesium 2.1 mg/dL (1.6-2.6); Phosphorous 6.3 mg/dL (2.7-4.5); Potassium 4.3 mEq/L (3.5-5.1)
[2021-07-22] MEDS: Nystatin POWDER 30 GM BOTTLE TP SCH ×3 (05:39→19:55)
[2021-07-22] MEDS: Furosemide 40 MG/4 ML VIAL IVP SCH (08:47)
[2021-07-22] MEDS: Isosorbide MONOnitrate (24 HR) 30 MG TAB.ER.24H PO SCH ×2 (08:51→09:06)
[2021-07-22] MEDS ORDERED: Furosemide 80 MG in 0.9 % Sodium Chloride 50 ML IV SCH (09:00)
[2021-07-22] MEDS ORDERED: *HR* Dextrose 50 % in Water (Syg) 50 ML SYRINGE ONE (09:20)
[2021-07-22] MEDS ORDERED: *HR* Dextrose 50 % in Water (Syg) 50 ML SYRINGE IVP ONE (09:21)
[2021-07-22] MEDS: MethylPREDNISolone 40 MG/ML VIAL IVP SCH ×3 (11:09→23:38)
[2021-07-22] MEDS: Ipratropium/Albuterol Neb 3 ML IH SCH ×4 (11:27→23:22)
[2021-07-22 12:14] LABS: VBG HCO3 25 mEq/L (21-27); VBG PCO2 57 mmHg (41-51); VBG PH 7.25 pH Units (7.32-7.42); VBG PO2 210 mmHg (25-50)
[2021-07-22] MEDS ORDERED: metOLazone 5 MG TABLET PO ONE (14:39)
[2021-07-22 15:40] LABS: Adenovirus Not Detected (Not Detect); Bordetella Pertussis Not Detected (Not Detect); Chlamydophila pneumoniae Not Detected (Not Detect); Coronavirus 229E Not Detected (Not Detect); Coronavirus HKU1 Not Detected (Not Detect); Coronavirus NL63 Not Detected (Not Detect); Coronavirus OC43 Not Detected (Not Detect); Human Metapneumovirus Not Detected (Not Detect); Human Rhinovirus/Enterovirus Not Detected (Not Detect); Influenza A Subtype 2009 H1 Not Detected (Not Detect); Influenza B Not Detected (Not Detect); Mycoplasma pneumoniae Not Detected (Not Detect); Parainfluenza Virus 1 Not Detected (Not Detect); Parainfluenza Virus 2 Not Detected (Not Detect); Parainfluenza Virus 3 Not Detected (Not Detect); Parainfluenza Virus 4 Not Detected (Not Detect); Respiratory Syncytial Virus Not Detected (Not Detect); SARS-CoV-2 Not Detected (Not Detect)
[2021-07-22] MEDS: Furosemide 80 MG in 0.9 % Sodium Chloride 50 ML IV SCH ×2 (16:02→19:55)
[2021-07-22] MEDS: Albumin 25% 25gram/100mL 25 GM/100 ML IV.SOLN IVPB SCH (16:47)
[2021-07-22 20:59] LABS: ABG Base Excess -3 mEq/L (-2 to 3); ABG HCO3 25 mEq/L (21-27); ABG Oxygen Saturation 94 % (95-98); ABG PCO2 61 mmHg (35-45); ABG PH 7.22 pH Units (7.32-7.45); ABG PO2 87 mmHg (85-104); ABG TCO2 27 mEq/L (20-26); Blood Gas Modality AVAPS; Blood Gas VT 500 cc
[2021-07-23] MEDS: Ipratropium/Albuterol Neb 3 ML IH SCH ×5 (03:45→20:15)
[2021-07-23] MEDS: Albumin 25% 25gram/100mL 25 GM/100 ML IV.SOLN IVPB SCH ×2 (05:51→17:43)
[2021-07-23 07:15] LABS: Red Cell Distribution Width 22.3 % (11.5-14.5)
[2021-07-23 07:17] LABS: Hematocrit 29.3 % (37.5-50.1); Hemoglobin 8.1 g/dL (12.9-16.9); Immature Platelets 2.9 % (1.1-6.1); Mean Corpuscular HGB Conc 27.6 g/dL (31.6-35.5); Mean Corpuscular Hemoglobin 27.2 pg (28.0-33.3); Mean Corpuscular Volume 98.3 fL (83.0-100.0); Mean Platelet Volume 10.3 fL (9.4-12.4); Red Blood Count 2.98 M/mcL (4.19-5.50); White Blood Count 3.4 K/mcL (4.3-11.1)
[2021-07-23 07:37] LABS: Calcium 8.7 mg/dL (8.6-10.3); Magnesium 2.2 mg/dL (1.6-2.6); Potassium 4.4 mEq/L (3.5-5.1)
[2021-07-23] MEDS: MethylPREDNISolone 40 MG/ML VIAL IVP SCH ×2 (09:21→17:43)
[2021-07-23] MEDS: Isosorbide MONOnitrate (24 HR) 30 MG TAB.ER.24H PO SCH (09:21)
[2021-07-23] MEDS: hydrOXYzine pamoate 25 MG CAPSULE PO PRN (09:21)
[2021-07-23] MEDS: Nystatin POWDER 30 GM BOTTLE TP SCH (09:23)
[2021-07-23] MEDS ORDERED: metOLazone 5 MG TABLET PO SCH (09:30)
[2021-07-23] MEDS: Furosemide 40 MG/4 ML VIAL IVP SCH (14:54)
[2021-07-24] MEDS: Ipratropium/Albuterol Neb 3 ML IH SCH ×7 (00:16→23:28)
[2021-07-24] MEDS: Nystatin POWDER 30 GM BOTTLE TP SCH ×3 (00:29→19:40)
[2021-07-24] MEDS: MethylPREDNISolone 40 MG/ML VIAL IVP SCH ×4 (00:34→22:53)
[2021-07-24] MEDS: Melatonin 3 MG TABLET PO PRN (00:34)
[2021-07-24 06:15] LABS: Mean Corpuscular HGB Conc 29.2 g/dL (31.6-35.5); Mean Corpuscular Hemoglobin 28.3 pg (28.0-33.3); Mean Corpuscular Volume 97.2 fL (83.0-100.0); Mean Platelet Volume 9.7 fL (9.4-12.4); Red Blood Count 2.47 M/mcL (4.19-5.50); Red Cell Distribution Width 22.4 % (11.5-14.5); White Blood Count 3.9 K/mcL (4.3-11.1)
[2021-07-24 06:16] LABS: Platelet Count 37 K/mcL (140-400)
[2021-07-24 06:31] LABS: Calcium 8.8 mg/dL (8.6-10.3); Potassium 3.8 mEq/L (3.5-5.1)
[2021-07-24] MEDS: Acetaminophen 325 MG TABLET PO PRN (08:34)
[2021-07-24] MEDS: Isosorbide MONOnitrate (24 HR) 30 MG TAB.ER.24H PO SCH (08:35)
[2021-07-24] MEDS: hydrOXYzine pamoate 25 MG CAPSULE PO PRN (08:35)
[2021-07-24] MEDS: Albumin 25% 25gram/100mL 25 GM/100 ML IV.SOLN IVPB SCH ×2 (08:36→16:57)
[2021-07-24] MEDS ORDERED: Furosemide 40 MG/4 ML VIAL IVP SCH (09:00)
[2021-07-24] MEDS: Furosemide 40 MG/4 ML VIAL IVP SCH (10:17)
[2021-07-25 02:17] LABS: Mean Platelet Volume 10.9 fL (9.4-12.4)
[2021-07-25 02:18] LABS: Hematocrit 24.2 % (37.5-50.1); Hemoglobin 6.8 g/dL (12.9-16.9); Immature Platelets 5.1 % (1.1-6.1); Mean Corpuscular HGB Conc 28.1 g/dL (31.6-35.5); Mean Corpuscular Hemoglobin 27.2 pg (28.0-33.3); Mean Corpuscular Volume 96.8 fL (83.0-100.0); Red Blood Count 2.5 M/mcL (4.19-5.50); Red Cell Distribution Width 22.1 % (11.5-14.5); White Blood Count 4.6 K/mcL (4.3-11.1)
[2021-07-25 02:35] LABS: Calcium 8.9 mg/dL (8.6-10.3); Potassium 3.6 mEq/L (3.5-5.1)
[2021-07-25] MEDS: Ipratropium/Albuterol Neb 3 ML IH SCH ×6 (03:38→23:39)
[2021-07-25] MEDS: Furosemide 40 MG/4 ML VIAL IVP SCH (09:38)
[2021-07-25] MEDS: Isosorbide MONOnitrate (24 HR) 30 MG TAB.ER.24H PO SCH (09:39)
[2021-07-25] MEDS: MethylPREDNISolone 40 MG/ML VIAL IVP SCH ×2 (09:41→18:35)
[2021-07-25] MEDS: Nystatin POWDER 30 GM BOTTLE TP SCH ×2 (09:41→20:56)
[2021-07-25] MEDS ORDERED: 0.9 % Sodium Chloride 250 ML ONE (10:54)
[2021-07-25 10:59] LABS: % Iron Saturation 27 % (20-55); Transferrin 224 mg/dL (200-400)
[2021-07-25] MEDS ORDERED: Bisacodyl 10 MG RECTAL SUPPOSITORY RC PRN (12:45)
[2021-07-25] MEDS: Sennosides/Docusate Sodium TABLET PO SCH ×2 (13:06→20:55)
[2021-07-25 20:41] LABS: Hematocrit 25.1 % (37.5-50.1); Hemoglobin 7.6 g/dL (12.9-16.9)
[2021-07-25] MEDS: hydrALAZINE 10 MG TABLET PO SCH (20:56)
[2021-07-26] MEDS: Ipratropium/Albuterol Neb 3 ML IH SCH ×6 (03:14→23:37)
[2021-07-26 03:18] LABS: Hemoglobin 7.5 g/dL (12.9-16.9)
[2021-07-26 03:20] LABS: Hematocrit 25.9 % (37.5-50.1); Immature Platelets 4.1 % (1.1-6.1); Mean Corpuscular Hemoglobin 27.9 pg (28.0-33.3); Mean Corpuscular Volume 96.3 fL (83.0-100.0); Mean Platelet Volume 10.6 fL (9.4-12.4); Red Blood Count 2.69 M/mcL (4.19-5.50); White Blood Count 4.8 K/mcL (4.3-11.1)
[2021-07-26] MEDS: MethylPREDNISolone 40 MG/ML VIAL IVP SCH (06:02)
[2021-07-26] MEDS: Nystatin POWDER 30 GM BOTTLE TP SCH ×3 (09:23→20:12)
[2021-07-26] MEDS: Isosorbide MONOnitrate (24 HR) 30 MG TAB.ER.24H PO SCH (09:23)
[2021-07-26] MEDS: hydrALAZINE 10 MG TABLET PO SCH ×3 (09:23→20:12)
[2021-07-26] MEDS: Sennosides/Docusate Sodium TABLET PO SCH ×2 (09:23→20:12)
[2021-07-26 10:28] LABS: Potassium 3.6 mEq/L (3.5-5.1)
[2021-07-26] MEDS: Lactulose Oral Soln 20 GM/30 ML UDC PO SCH ×2 (11:35→20:12)
[2021-07-26] MEDS: amLODIPine 5 MG TABLET PO SCH (14:26)
[2021-07-27] MEDS: Ipratropium/Albuterol Neb 3 ML IH SCH ×5 (04:56→19:58)
[2021-07-27 04:58] LABS: Hematocrit 25.4 % (37.5-50.1); Hemoglobin 7.5 g/dL (12.9-16.9); Immature Platelets 6.2 % (1.1-6.1); Mean Corpuscular HGB Conc 29.5 g/dL (31.6-35.5); Mean Corpuscular Hemoglobin 28.1 pg (28.0-33.3); Mean Corpuscular Volume 95.1 fL (83.0-100.0); Red Blood Count 2.67 M/mcL (4.19-5.50); White Blood Count 7.2 K/mcL (4.3-11.1)
[2021-07-27 05:16] LABS: Blood Urea Nitrogen > 130 mg/dL (8-23); Calcium 8.9 mg/dL (8.6-10.3); Carbon Dioxide 27 mEq/L (23-29); Chloride 103 mEq/L (98-107); Glucose 140 mg/dL (70-105); Potassium 3.5 mEq/L (3.5-5.1); Sodium 138 mEq/L (136-145); eGFR For African Americans 22 (> 60); eGFR For Non-African Americans 18 (> 60)
[2021-07-27] MEDS: hydrALAZINE 10 MG TABLET PO SCH ×3 (07:34→19:42)
[2021-07-27] MEDS: Isosorbide MONOnitrate (24 HR) 30 MG TAB.ER.24H PO SCH (07:35)
[2021-07-27] MEDS: Lactulose Oral Soln 20 GM/30 ML UDC PO SCH ×2 (07:35→19:42)
[2021-07-27] MEDS: amLODIPine 5 MG TABLET PO SCH (07:36)
[2021-07-27] MEDS: Nystatin POWDER 30 GM BOTTLE TP SCH ×3 (07:37→19:42)
[2021-07-27] MEDS: Sennosides/Docusate Sodium TABLET PO SCH ×2 (07:38→19:42)
[2021-07-27] MEDS: predniSONE 20 MG TABLET PO SCH (07:40)
[2021-07-27] MEDS ORDERED: Albumin 25% 25gram/100mL 25 GM/100 ML IV.SOLN IVPB ONE (15:28)
[2021-07-27] MEDS ORDERED: Furosemide 40 MG/4 ML VIAL IVP ONE (15:29)
[2021-07-28] MEDS: Ipratropium/Albuterol Neb 3 ML IH SCH ×6 (00:03→19:33)
[2021-07-28 05:15] LABS: Hematocrit 25.1 % (37.5-50.1); Hemoglobin 7.6 g/dL (12.9-16.9); Mean Corpuscular HGB Conc 30.3 g/dL (31.6-35.5); Red Cell Distribution Width 20.6 % (11.5-14.5)
[2021-07-28 05:17] LABS: Mean Corpuscular Hemoglobin 27.6 pg (28.0-33.3); Mean Corpuscular Volume 91.3 fL (83.0-100.0); Mean Platelet Volume 10.2 fL (9.4-12.4); Red Blood Count 2.75 M/mcL (4.19-5.50); White Blood Count 8.2 K/mcL (4.3-11.1)
[2021-07-28 05:39] LABS: Blood Urea Nitrogen > 130 mg/dL (8-23); Calcium 8.8 mg/dL (8.6-10.3); Carbon Dioxide 25 mEq/L (23-29); Chloride 108 mEq/L (98-107); Glucose 111 mg/dL (70-105); Potassium 3.8 mEq/L (3.5-5.1); Sodium 135 mEq/L (136-145); eGFR For African Americans 23 (> 60); eGFR For Non-African Americans 19 (> 60)
[2021-07-28] MEDS: Sennosides/Docusate Sodium TABLET PO SCH ×2 (07:46→20:04)
[2021-07-28] MEDS: amLODIPine 5 MG TABLET PO SCH (07:46)
[2021-07-28] MEDS: predniSONE 20 MG TABLET PO SCH (07:47)
[2021-07-28] MEDS: Isosorbide MONOnitrate (24 HR) 30 MG TAB.ER.24H PO SCH (07:47)
[2021-07-28] MEDS: hydrALAZINE 10 MG TABLET PO SCH (07:47)
[2021-07-28] MEDS: Lactulose Oral Soln 20 GM/30 ML UDC PO SCH ×2 (07:48→20:05)
[2021-07-28] MEDS: Nystatin POWDER 30 GM BOTTLE TP SCH ×2 (07:48→20:05)
[2021-07-28] MEDS ORDERED: Saline Nasal Spray 44 ML BOTTLE NS PRN (09:56)
[2021-07-28] MEDS: hydrALAZINE 25 MG TABLET PO SCH ×2 (13:51→20:05)
[2021-07-28] MEDS: Bumetanide 1 MG/4 ML VIAL IVP SCH ×2 (13:51→18:31)
[2021-07-28] MEDS: Albumin 25% 25gram/100mL 25 GM/100 ML IV.SOLN IVPB SCH ×2 (13:52→18:32)
[2021-07-29] MEDS: Ipratropium/Albuterol Neb 3 ML IH SCH ×7 (00:31→23:25)
[2021-07-29] MEDS: hydrOXYzine pamoate 25 MG CAPSULE PO PRN (00:34)
[2021-07-29 03:00] LABS: Hemoglobin 7.1 g/dL (12.9-16.9); Red Cell Distribution Width 20.8 % (11.5-14.5)
[2021-07-29 03:01] LABS: Immature Platelets 6.8 % (1.1-6.1); Mean Corpuscular HGB Conc 28.4 g/dL (31.6-35.5); Mean Corpuscular Hemoglobin 26.8 pg (28.0-33.3); Mean Corpuscular Volume 94.3 fL (83.0-100.0); Red Blood Count 2.65 M/mcL (4.19-5.50); White Blood Count 9.4 K/mcL (4.3-11.1)
[2021-07-29 04:34] LABS: Blood Urea Nitrogen > 130 mg/dL (8-23); Calcium 9.1 mg/dL (8.6-10.3); Carbon Dioxide 28 mEq/L (23-29); Chloride 103 mEq/L (98-107); Glucose 120 mg/dL (70-105); Magnesium 2.8 mg/dL (1.6-2.6); Phosphorous 6.8 mg/dL (2.7-4.5); Potassium 3.3 mEq/L (3.5-5.1); Sodium 143 mEq/L (136-145); eGFR For African Americans 25 (> 60); eGFR For Non-African Americans 21 (> 60)
[2021-07-29] MEDS: Albumin 25% 25gram/100mL 25 GM/100 ML IV.SOLN IVPB SCH ×2 (05:10→17:01)
[2021-07-29] MEDS: Lactulose Oral Soln 20 GM/30 ML UDC PO SCH ×2 (07:49→19:54)
[2021-07-29] MEDS: Bumetanide 1 MG/4 ML VIAL IVP SCH ×2 (07:49→19:03)
[2021-07-29] MEDS: hydrALAZINE 25 MG TABLET PO SCH ×3 (07:49→19:51)
[2021-07-29] MEDS: Sennosides/Docusate Sodium TABLET PO SCH ×2 (07:49→19:50)
[2021-07-29] MEDS: Isosorbide MONOnitrate (24 HR) 30 MG TAB.ER.24H PO SCH (07:49)
[2021-07-29] MEDS: predniSONE 20 MG TABLET PO SCH (07:49)
[2021-07-29] MEDS: Nystatin POWDER 30 GM BOTTLE TP SCH ×2 (07:49→19:55)
[2021-07-29] MEDS: amLODIPine 5 MG TABLET PO SCH (07:50)
[2021-07-29 21:18] LABS: ABG Base Excess 2 mEq/L (-2 to 3); ABG HCO3 29 mEq/L (21-27); ABG Oxygen Saturation 86 % (95-98); ABG PCO2 67 mmHg (35-45); ABG PH 7.25 pH Units (7.32-7.45); ABG PO2 62 mmHg (85-104); ABG TCO2 31 mEq/L (20-26)
[2021-07-30 02:55] LABS: Basophils % 0.1 %; Eosinophils % 0.1 %
[2021-07-30 02:57] LABS: Hematocrit 21.9 % (37.5-50.1); Hemoglobin 6.5 g/dL (12.9-16.9); Immature Granulocytes % 1.8 % (0-4); Immature Platelets 5.1 % (1.1-6.1); Lymphocytes # 0.1 K/mcL (0.6-4.6); Lymphocytes % 1.8 %; Mean Corpuscular HGB Conc 29.7 g/dL (31.6-35.5); Mean Corpuscular Hemoglobin 27.5 pg (28.0-33.3); Mean Corpuscular Volume 92.8 fL (83.0-100.0); Mean Platelet Volume 9.9 fL (9.4-12.4); Monocytes # 0.3 K/mcL (0.0-1.3); Monocytes % 4.3 %; Neutrophils # 7.3 K/mcL (1.6-8.9); Nucleated Red Blood Cells 1.6 /100 WBC (0); Red Blood Count 2.36 M/mcL (4.19-5.50); Red Cell Distribution Width 20.4 % (11.5-14.5); Segmented Neutrophils % 91.9 %; White Blood Count 7.9 K/mcL (4.3-11.1)
[2021-07-30 03:03] LABS: Platelet Count 50 K/mcL (140-400)
[2021-07-30 03:12] LABS: Blood Urea Nitrogen > 130 mg/dL (8-23); Calcium 9.2 mg/dL (8.6-10.3); Carbon Dioxide 29 mEq/L (23-29); Chloride 101 mEq/L (98-107); Glucose 80 mg/dL (70-105); Potassium 3.4 mEq/L (3.5-5.1); Sodium 142 mEq/L (136-145); eGFR For African Americans 26 (> 60); eGFR For Non-African Americans 21 (> 60)
[2021-07-30] MEDS: Ipratropium/Albuterol Neb 3 ML IH SCH ×5 (03:15→19:51)
[2021-07-30] MEDS ORDERED: 0.9 % Sodium Chloride 250 ML ONE (05:57)
[2021-07-30 06:36] LABS: Magnesium 2.6 mg/dL (1.6-2.6); Phosphorous 6.5 mg/dL (2.7-4.5)
[2021-07-30] MEDS: Albumin 25% 25gram/100mL 25 GM/100 ML IV.SOLN IVPB SCH ×2 (09:02→17:09)
[2021-07-30] MEDS: Bumetanide 1 MG/4 ML VIAL IVP SCH ×2 (09:02→17:09)
[2021-07-30] MEDS: amLODIPine 5 MG TABLET PO SCH (09:03)
[2021-07-30] MEDS: Lactulose Oral Soln 20 GM/30 ML UDC PO SCH ×2 (09:03→20:52)
[2021-07-30] MEDS: hydrALAZINE 25 MG TABLET PO SCH ×3 (09:03→20:51)
[2021-07-30] MEDS: Sennosides/Docusate Sodium TABLET PO SCH ×2 (09:03→20:51)
[2021-07-30] MEDS: predniSONE 20 MG TABLET PO SCH (09:03)
[2021-07-30] MEDS: Isosorbide MONOnitrate (24 HR) 30 MG TAB.ER.24H PO SCH (09:03)
[2021-07-30] MEDS: Nystatin POWDER 30 GM BOTTLE TP SCH ×2 (09:04→20:52)
[2021-07-30 13:36] LABS: Hematocrit 23.4 % (37.5-50.1)
[2021-07-31] MEDS: Ipratropium/Albuterol Neb 3 ML IH SCH ×7 (00:15→23:51)
[2021-07-31 05:15] LABS: Hemoglobin 7.2 g/dL (12.9-16.9); Mean Platelet Volume 10.4 fL (9.4-12.4); Red Cell Distribution Width 19.8 % (11.5-14.5)
[2021-07-31 05:17] LABS: Basophils % 0.1 %; Eosinophils # 0.1 K/mcL (0.0-0.6); Hematocrit 24.2 % (37.5-50.1); Immature Granulocytes % 1.8 % (0-4); Immature Platelets 4.9 % (1.1-6.1); Lymphocytes # 0.4 K/mcL (0.6-4.6); Lymphocytes % 3.9 %; Mean Corpuscular HGB Conc 29.8 g/dL (31.6-35.5); Mean Corpuscular Hemoglobin 27.9 pg (28.0-33.3); Mean Corpuscular Volume 93.8 fL (83.0-100.0); Monocytes # 0.6 K/mcL (0.0-1.3); Monocytes % 6.1 %; Neutrophils # 7.9 K/mcL (1.6-8.9); Platelet Count 61 K/mcL (140-400); Red Blood Count 2.58 M/mcL (4.19-5.50); Segmented Neutrophils % 87.1 %; White Blood Count 9.1 K/mcL (4.3-11.1)
[2021-07-31 05:43] LABS: Blood Urea Nitrogen > 130 mg/dL (8-23); Calcium 9.1 mg/dL (8.6-10.3); Carbon Dioxide 28 mEq/L (23-29); Chloride 101 mEq/L (98-107); Glucose 100 mg/dL (70-105); Potassium 3.1 mEq/L (3.5-5.1); Sodium 142 mEq/L (136-145); eGFR For African Americans 24 (> 60); eGFR For Non-African Americans 20 (> 60)
[2021-07-31] MEDS: Albumin 25% 25gram/100mL 25 GM/100 ML IV.SOLN IVPB SCH (06:10)
[2021-07-31] MEDS: Lactulose Oral Soln 20 GM/30 ML UDC PO SCH ×2 (08:38→20:26)
[2021-07-31] MEDS: predniSONE 20 MG TABLET PO SCH (08:39)
[2021-07-31] MEDS: amLODIPine 5 MG TABLET PO SCH (08:39)
[2021-07-31] MEDS: Sennosides/Docusate Sodium TABLET PO SCH ×2 (08:39→20:26)
[2021-07-31] MEDS: Bumetanide 1 MG/4 ML VIAL IVP SCH (08:39)
[2021-07-31] MEDS: hydrALAZINE 25 MG TABLET PO SCH ×3 (08:39→20:26)
[2021-07-31] MEDS: Isosorbide MONOnitrate (24 HR) 30 MG TAB.ER.24H PO SCH (08:39)
[2021-07-31] MEDS: Nystatin POWDER 30 GM BOTTLE TP SCH ×2 (08:39→20:26)
[2021-08-01] MEDS: Ipratropium/Albuterol Neb 3 ML IH SCH ×6 (03:28→23:22)
[2021-08-01 03:47] LABS: Basophils % 0.1 %; Hemoglobin 7.1 g/dL (12.9-16.9); Mean Corpuscular Volume 94.1 fL (83.0-100.0); Mean Platelet Volume 10.3 fL (9.4-12.4); Nucleated Red Blood Cells 0.5 /100 WBC (0)
[2021-08-01 03:48] LABS: Eosinophils # 0.1 K/mcL (0.0-0.6); Eosinophils % 0.9 %; Immature Granulocytes % 1.8 % (0-4); Immature Platelets 4.3 % (1.1-6.1); Lymphocytes # 0.4 K/mcL (0.6-4.6); Mean Corpuscular HGB Conc 29.6 g/dL (31.6-35.5); Mean Corpuscular Hemoglobin 27.8 pg (28.0-33.3); Monocytes # 0.5 K/mcL (0.0-1.3); Monocytes % 5.5 %; Neutrophils # 7.6 K/mcL (1.6-8.9); Red Blood Count 2.55 M/mcL (4.19-5.50); Red Cell Distribution Width 19.9 % (11.5-14.5); Segmented Neutrophils % 86.7 %; White Blood Count 8.8 K/mcL (4.3-11.1)
[2021-08-01 03:58] LABS: Platelet Count 68 K/mcL (140-400)
[2021-08-01 04:03] LABS: Blood Urea Nitrogen > 130 mg/dL (8-23); Calcium 9.1 mg/dL (8.6-10.3); Carbon Dioxide 27 mEq/L (23-29); Chloride 102 mEq/L (98-107); Glucose 119 mg/dL (70-105); Sodium 140 mEq/L (136-145); eGFR For African Americans 25 (> 60); eGFR For Non-African Americans 21 (> 60)
[2021-08-01 06:07] LABS: Hematocrit 23.7 % (37.5-50.1); Immature Platelets 3.7 % (1.1-6.1); Mean Corpuscular HGB Conc 29.5 g/dL (31.6-35.5); Mean Corpuscular Hemoglobin 28.1 pg (28.0-33.3); Mean Corpuscular Volume 95.2 fL (83.0-100.0); Mean Platelet Volume 10.1 fL (9.4-12.4); Red Blood Count 2.49 M/mcL (4.19-5.50); White Blood Count 8.9 K/mcL (4.3-11.1)
[2021-08-01] MEDS: Lactulose Oral Soln 20 GM/30 ML UDC PO SCH ×2 (09:56→19:26)
[2021-08-01] MEDS: amLODIPine 5 MG TABLET PO SCH (09:56)
[2021-08-01] MEDS: hydrALAZINE 25 MG TABLET PO SCH ×3 (09:56→19:26)
[2021-08-01] MEDS: Nystatin POWDER 30 GM BOTTLE TP SCH ×2 (09:56→23:19)
[2021-08-01] MEDS: predniSONE 20 MG TABLET PO SCH (09:56)
[2021-08-01] MEDS: hydrOXYzine pamoate 25 MG CAPSULE PO PRN (09:56)
[2021-08-01] MEDS: Sennosides/Docusate Sodium TABLET PO SCH ×2 (09:56→19:27)
[2021-08-01] MEDS: Isosorbide MONOnitrate (24 HR) 30 MG TAB.ER.24H PO SCH (09:56)
[2021-08-01] MEDS ORDERED: *HR* Succinylcholine 200 MG/10 ML VIAL IVP ONE (11:27)
[2021-08-01] MEDS ORDERED: *HR* Etomidate 40 MG/20 ML VIAL IVP ONE (11:28)
[2021-08-01 11:36] LABS: Red Cell Distribution Width 20.3 % (11.5-14.5)
[2021-08-01 11:38] LABS: Hemoglobin 7.3 g/dL (12.9-16.9); Immature Platelets 4.3 % (1.1-6.1); Mean Corpuscular HGB Conc 29.2 g/dL (31.6-35.5); Mean Corpuscular Volume 95.8 fL (83.0-100.0); Mean Platelet Volume 10.7 fL (9.4-12.4); Red Blood Count 2.61 M/mcL (4.19-5.50); White Blood Count 8.9 K/mcL (4.3-11.1)
[2021-08-01 11:44] LABS: INR 1.2; Prothrombin Time 13.8 Seconds (9.4-12.1)
[2021-08-01] MEDS ORDERED: *HR* EPINEPHrine 1 MG/10 ML SYRINGE INTRATRACH PRN ×2 (11:56→14:41)
[2021-08-01] MEDS ORDERED: SODIUM CHLORIDE 0.9% IVPB STA (12:12)
[2021-08-01] MEDS ORDERED: DESMOPRESSIN ACETATE IVPB STA (12:12)
[2021-08-01] MEDS ORDERED: *HR* EPINEPHrine 1 MG/10 ML SYRINGE ONE (12:21)
[2021-08-01] MEDS ORDERED: *HR* Rocuronium Bromide 50 MG/5 ML VIAL ONE (12:23)
[2021-08-01] MEDS ORDERED: *HR* Propofol 200 MG/20 ML VIAL IVP ONE (12:23)
[2021-08-01] MEDS ORDERED: methylPREDNISolone 125 MG/2 ML VIAL IVP SCH (12:43)
[2021-08-01] MEDS ORDERED: 0.9 % Sodium Chloride 250 ML IVC PRN ×2 (12:47→14:41)
[2021-08-01] MEDS ORDERED: 0.9 % Sodium Chloride 1,000 ML PRIME SCH ×2 (13:00→14:41)
[2021-08-01] MEDS ORDERED: Heparin 1,000 UNITS/500 mL 500 ML ONE (13:37)
[2021-08-01] MEDS ORDERED: Acetaminophen 325 MG TABLET PO PRN (14:41)
[2021-08-01] MEDS ORDERED: Saline Nasal Spray 44 ML BOTTLE NS PRN (14:41)
[2021-08-01] MEDS ORDERED: hydrOXYzine pamoate 25 MG CAPSULE PO PRN (14:41)
[2021-08-01] MEDS ORDERED: Naloxone 0.4 MG/ML INJ IVP PRN (14:41)
[2021-08-01] MEDS ORDERED: *HR* Heparin 5,000 UNIT/ML VIAL ONE (14:41)
[2021-08-01] MEDS ORDERED: Bisacodyl 10 MG RECTAL SUPPOSITORY RC PRN (14:41)
[2021-08-01] MEDS ORDERED: Melatonin 3 MG TABLET PO PRN (14:41)
[2021-08-01] MEDS ORDERED: Ondansetron ODT 4 MG TAB.RAPDIS SL PRN (14:41)
[2021-08-01] MEDS ORDERED: Artificial Tears SOLN 15 ML BOTTLE BOTH EYES PRN (15:04)
[2021-08-01] MEDS: FentaNYL (PF) 1,000 MCG/100 ML IV.SOLN IVC SCH ×2 (15:14→23:46)
[2021-08-01] MEDS: methylPREDNISolone 125 MG/2 ML VIAL IVP SCH ×2 (17:39→23:47)
[2021-08-01] MEDS: Pantoprazole 40 MG VIAL IVP SCH (17:40)
[2021-08-01] MEDS: Artificial Tears SOLN 15 ML BOTTLE BOTH EYES SCH ×3 (17:41→23:47)
[2021-08-01] MEDS: Sodium Chloride for inhalation 3 ML VIAL IH SCH (18:22)
[2021-08-01 19:10] LABS: Appearance of Body Fluid Hazy (Clear); Volume of Body Fluid 20 mL
[2021-08-01 19:23] LABS: Hepatitis B Surface Antibody < 3.10 mIU/mL
[2021-08-01 20:45] LABS: Hepatitis B Surface Antigen Nonreactive (Nonreactive)
[2021-08-01 21:44] LABS: Hematocrit 22.9 % (37.5-50.1); Hemoglobin 6.8 g/dL (12.9-16.9)
[2021-08-01 22:03] LABS: Complement C3 77 mg/dL (87-200)
[2021-08-01 22:12] LABS: Calcium 8.5 mg/dL (8.6-10.3); Potassium 4.3 mEq/L (3.5-5.1)
[2021-08-01] MEDS: Chlorhexidine Rinse 15 ML MOUTHWASH MM SCH (23:19)
[2021-08-02 01:44] LABS: Hematocrit 21.3 % (37.5-50.1); Hemoglobin 6.4 g/dL (12.9-16.9)
[2021-08-02 03:44] LABS: Immature Granulocytes % 1.5 % (0-4); Segmented Neutrophils % 96.1 %
[2021-08-02] MEDS ORDERED: 0.9 % Sodium Chloride 250 ML IVC SCH (03:45)
[2021-08-02 03:46] LABS: Hematocrit 21.4 % (37.5-50.1); Hemoglobin 6.5 g/dL (12.9-16.9); Immature Platelets 4.6 % (1.1-6.1); Lymphocytes # 0.1 K/mcL (0.6-4.6); Lymphocytes % 1.5 %; Mean Corpuscular HGB Conc 30.4 g/dL (31.6-35.5); Mean Corpuscular Hemoglobin 28.4 pg (28.0-33.3); Mean Corpuscular Volume 93.4 fL (83.0-100.0); Mean Platelet Volume 10.7 fL (9.4-12.4); Monocytes % 0.9 %; Neutrophils # 3.2 K/mcL (1.6-8.9); Nucleated Red Blood Cells 0.9 /100 WBC (0); Red Blood Count 2.29 M/mcL (4.19-5.50); Red Cell Distribution Width 20.4 % (11.5-14.5); White Blood Count 3.3 K/mcL (4.3-11.1)
[2021-08-02] MEDS: Sodium Chloride for inhalation 3 ML VIAL IH SCH ×3 (03:51→20:18)
[2021-08-02] MEDS: Ipratropium/Albuterol Neb 3 ML IH SCH ×6 (03:51→23:18)
[2021-08-02 03:52] LABS: Platelet Count 73 K/mcL (140-400)
[2021-08-02 03:58] LABS: Calcium 8.3 mg/dL (8.6-10.3); Magnesium 2.2 mg/dL (1.6-2.6); Phosphorous 4.9 mg/dL (2.7-4.5); Potassium 4.2 mEq/L (3.5-5.1)
[2021-08-02 04:02] LABS: ABG Base Excess 4 mEq/L (-2 to 3); ABG HCO3 30 mEq/L (21-27); ABG Oxygen Saturation 100 % (95-98); ABG PCO2 55 mmHg (35-45); ABG PH 7.34 pH Units (7.32-7.45); ABG PO2 187 mmHg (85-104); ABG TCO2 32 mEq/L (20-26); Blood Gas VT 500 cc
[2021-08-02] MEDS: Artificial Tears SOLN 15 ML BOTTLE BOTH EYES SCH ×5 (05:29→19:38)
[2021-08-02] MEDS ORDERED: 0.9 % Sodium Chloride 250 ML ONE (05:31)
[2021-08-02] MEDS: methylPREDNISolone 125 MG/2 ML VIAL IVP SCH ×4 (05:58→17:47)
[2021-08-02] MEDS ORDERED: 0.9 % Sodium Chloride 250 ML IVC PRN (07:46)
[2021-08-02] MEDS: Isosorbide MONOnitrate (24 HR) 30 MG TAB.ER.24H PO SCH (08:30)
[2021-08-02] MEDS: Lactulose Oral Soln 20 GM/30 ML UDC PO SCH ×2 (08:31→19:42)
[2021-08-02] MEDS: Nystatin POWDER 30 GM BOTTLE TP SCH ×2 (08:31→19:43)
[2021-08-02] MEDS: amLODIPine 5 MG TABLET PO SCH (08:31)
[2021-08-02] MEDS: Sennosides/Docusate Sodium TABLET PO SCH ×2 (08:32→19:42)
[2021-08-02] MEDS: FentaNYL (PF) 1,000 MCG/100 ML IV.SOLN IVC SCH ×2 (08:38→09:45)
[2021-08-02] MEDS: Chlorhexidine Rinse 15 ML MOUTHWASH MM SCH ×2 (08:39→20:18)
[2021-08-02] MEDS: Pantoprazole 40 MG VIAL IVP SCH (08:39)
[2021-08-02 10:38] LABS: Hematocrit 24.5 % (37.5-50.1); Hemoglobin 7.5 g/dL (12.9-16.9)
[2021-08-02 10:54] LABS: VBG Ionized Calcium 1.16 mmol/L (1.15-1.35)
[2021-08-02] MEDS: Tranexamic Acid 1,000 MG/10 ML VIAL IH SCH ×3 (11:00→12:50)
[2021-08-02 13:27] LABS: Influenza A PCR Negative (Negative); Influenza B PCR Negative (Negative); Resp. Syncytial Virus PCR Negative (Negative); SARS-CoV-2 by PCR (In House) Negative (Negative)
[2021-08-02 14:45] LABS: Bilirubin,Urine Negative (Negative); Blood,Urine Moderate (Negative); Clarity,Urine Ex.Turbid (Clear); Color,Urine Yellow (Yellow); Glucose,Urine (UA) Normal (Normal); Hyaline Casts,Urine Few per lpf (None Seen); Ketones,Urine Negative (Negative); Leukocyte Esterase,Urine Large (Negative); Mucus,Urine Few per lpf (None-Few); Nitrite,Urine Negative (Negative); PH,Urine 5.5 pH Units (5.0-8.0); Protein,Urine 30 mg/dL (Neg-Trace); RBC,Urine 50-100 per hpf (0-3); Renal Epithelial Cells,Urine Few per hpf (None-Few); Specific Gravity,Urine 1.019 (1.010-1.025); Transitional Epi Cells,Urine Few per hpf (None-Few); Urobilinogen,Urine Normal (Normal); WBC,Urine TNTC per hpf (0-3)
[2021-08-02 14:54] LABS: Protein/Creatinine Ratio,Urine 0.68 mg/mg (0.00-0.20); Sodium, Urine 12.8 mEq/L
[2021-08-03] MEDS: Artificial Tears SOLN 15 ML BOTTLE BOTH EYES SCH ×6 (00:08→19:57)
[2021-08-03] MEDS: Sodium Chloride for inhalation 3 ML VIAL IH SCH ×2 (03:50→10:50)
[2021-08-03] MEDS: Ipratropium/Albuterol Neb 3 ML IH SCH ×6 (03:50→23:46)
[2021-08-03] MEDS: methylPREDNISolone 125 MG/2 ML VIAL IVP SCH ×3 (04:33→17:29)
[2021-08-03 05:38] LABS: Hemoglobin 8.2 g/dL (12.9-16.9); Nucleated Red Blood Cells 0.5 /100 WBC (0)
[2021-08-03 05:40] LABS: Hematocrit 27.4 % (37.5-50.1); Immature Granulocytes % 1.1 % (0-4); Immature Platelets 5.6 % (1.1-6.1); Lymphocytes # 0.1 K/mcL (0.6-4.6); Lymphocytes % 2.2 %; Mean Corpuscular HGB Conc 29.9 g/dL (31.6-35.5); Mean Corpuscular Volume 93.5 fL (83.0-100.0); Mean Platelet Volume 10.5 fL (9.4-12.4); Monocytes # 0.2 K/mcL (0.0-1.3); Monocytes % 4.2 %; Neutrophils # 5.1 K/mcL (1.6-8.9); Red Blood Count 2.93 M/mcL (4.19-5.50); Red Cell Distribution Width 20.9 % (11.5-14.5); Segmented Neutrophils % 92.5 %; White Blood Count 5.5 K/mcL (4.3-11.1)
[2021-08-03 05:57] LABS: Calcium 9.2 mg/dL (8.6-10.3); Magnesium 2.2 mg/dL (1.6-2.6); Potassium 3.6 mEq/L (3.5-5.1)
[2021-08-03 06:03] LABS: Platelet Count 85 K/mcL (140-400)
[2021-08-03 06:10] LABS: Anisocytosis 2+ (Not Present); Platelet Estimate Decreased (Normal); Poikilocytosis 1+ (Not Present); Target Cells 1+ (Not Present)
[2021-08-03] MEDS: Chlorhexidine Rinse 15 ML MOUTHWASH MM SCH ×2 (08:27→19:57)
[2021-08-03] MEDS ORDERED: Lactulose Oral Soln 20 GM/30 ML UDC PO PRN ×2 (08:32→23:12)
[2021-08-03] MEDS: Sennosides/Docusate Sodium TABLET PO SCH ×2 (08:41→19:57)
[2021-08-03] MEDS: amLODIPine 5 MG TABLET PO SCH (08:41)
[2021-08-03] MEDS: Nystatin POWDER 30 GM BOTTLE TP SCH ×2 (08:41→19:58)
[2021-08-03] MEDS: Isosorbide MONOnitrate (24 HR) 30 MG TAB.ER.24H PO SCH (08:41)
[2021-08-03] MEDS: Lactulose Oral Soln 20 GM/30 ML UDC PO SCH (08:42)
[2021-08-03] MEDS: Pantoprazole 40 MG VIAL IVP SCH (08:42)
[2021-08-03] MEDS ORDERED: Artificial Tears SOLN 15 ML BOTTLE BOTH EYES PRN (23:12)
[2021-08-03] MEDS ORDERED: Saline Nasal Spray 44 ML BOTTLE NS PRN (23:12)
[2021-08-03] MEDS ORDERED: Bisacodyl 10 MG RECTAL SUPPOSITORY RC PRN (23:12)
[2021-08-03] MEDS ORDERED: 0.9 % Sodium Chloride 250 ML IVC SCH (23:12)
[2021-08-03] MEDS ORDERED: Ondansetron ODT 4 MG TAB.RAPDIS SL PRN (23:12)
[2021-08-03] MEDS ORDERED: Naloxone 0.4 MG/ML INJ IVP PRN (23:12)
[2021-08-04] MEDS: methylPREDNISolone 125 MG/2 ML VIAL IVP SCH ×4 (00:10→16:49)
[2021-08-04] MEDS: Ipratropium/Albuterol Neb 3 ML IH SCH ×6 (03:36→23:27)
[2021-08-04] MEDS: Pantoprazole 40 MG VIAL IVP SCH (06:00)
[2021-08-04 06:56] LABS: Hematocrit 26.4 % (37.5-50.1); Hemoglobin 8.3 g/dL (12.9-16.9); Immature Platelets 5.2 % (1.1-6.1); Lymphocytes # 0.1 K/mcL (0.6-4.6); Mean Corpuscular HGB Conc 31.4 g/dL (31.6-35.5); Mean Corpuscular Hemoglobin 29.3 pg (28.0-33.3); Mean Corpuscular Volume 93.3 fL (83.0-100.0); Mean Platelet Volume 10.6 fL (9.4-12.4); Red Blood Count 2.83 M/mcL (4.19-5.50); Red Cell Distribution Width 21.4 % (11.5-14.5); White Blood Count 8.3 K/mcL (4.3-11.1)
[2021-08-04 07:06] LABS: Platelet Count 99 K/mcL (140-400)
[2021-08-04 07:19] LABS: Calcium 9.3 mg/dL (8.6-10.3); Magnesium 2.4 mg/dL (1.6-2.6); Potassium 3.8 mEq/L (3.5-5.1)
[2021-08-04 08:37] LABS: Monocytes # 0.1 K/mcL (0.0-1.3); Neutrophils # 8.1 K/mcL (1.6-8.9); Platelet Estimate Decreased (Normal)
[2021-08-04 08:38] LABS: Hypochromasia Present (Not Present)
[2021-08-04 08:39] LABS: Basophilic Stippling 1+ (Not Present)
[2021-08-04 08:40] LABS: Macrocytosis Present (Not Present)
[2021-08-04] MEDS: Sennosides/Docusate Sodium TABLET PO SCH ×2 (10:48→21:37)
[2021-08-04] MEDS: Isosorbide MONOnitrate (24 HR) 30 MG TAB.ER.24H PO SCH (10:48)
[2021-08-04] MEDS: amLODIPine 5 MG TABLET PO SCH (10:48)
[2021-08-04] MEDS: Nystatin POWDER 30 GM BOTTLE TP SCH ×2 (10:49→21:37)
[2021-08-04] MEDS: Piperacillin/Tazobactam 3.375 GM in 0.9 % Sodium Chloride Mini Bag 100 ML IVPB SCH ×2 (13:48→21:37)
[2021-08-04] MEDS: Bumetanide 1 MG TABLET PO SCH (16:48)
[2021-08-04] MEDS ORDERED: Furosemide 40 MG/4 ML VIAL IVP ONE (16:51)
[2021-08-04] MEDS: Melatonin 3 MG TABLET PO PRN (21:37)
[2021-08-05] MEDS: methylPREDNISolone 125 MG/2 ML VIAL IVP SCH ×4 (00:52→18:41)
[2021-08-05] MEDS: Ipratropium/Albuterol Neb 3 ML IH SCH ×6 (04:02→23:40)
[2021-08-05] MEDS: Bumetanide 1 MG TABLET PO SCH ×2 (05:35→18:41)
[2021-08-05] MEDS: Piperacillin/Tazobactam 3.375 GM in 0.9 % Sodium Chloride Mini Bag 100 ML IVPB SCH ×3 (05:36→21:17)
[2021-08-05 05:59] LABS: Calcium 8.9 mg/dL (8.6-10.3); Potassium 3.5 mEq/L (3.5-5.1)
[2021-08-05] MEDS: Pantoprazole 40 MG VIAL IVP SCH (07:53)
[2021-08-05] MEDS: hydrOXYzine pamoate 25 MG CAPSULE PO PRN (07:54)
[2021-08-05] MEDS: Isosorbide MONOnitrate (24 HR) 30 MG TAB.ER.24H PO SCH (07:54)
[2021-08-05] MEDS: amLODIPine 5 MG TABLET PO SCH (07:54)
[2021-08-05] MEDS: Nystatin POWDER 30 GM BOTTLE TP SCH ×2 (07:54→21:15)
[2021-08-05] MEDS: Sennosides/Docusate Sodium TABLET PO SCH ×2 (07:54→21:15)
[2021-08-05] MEDS ORDERED: 0.9 % Sodium Chloride 250 ML IVC PRN (10:01)
[2021-08-05] MEDS ORDERED: *HR* Heparin 10,000 UNIT/10 ML VIAL IV PRN (10:01)
[2021-08-05] MEDS ORDERED: 0.9 % Sodium Chloride 1,000 ML PRIME SCH (10:15)
[2021-08-05 10:24] LABS: GBM IgG Multiplex Bead Assay 0 AU/mL (0-19); Glomerular Basement Memb IgG NEGATIVE (Negative); Serine Protease-3 Antibody 1 AU/mL (0-19)
[2021-08-06] MEDS: methylPREDNISolone 125 MG/2 ML VIAL IVP SCH ×4 (01:28→19:00)
[2021-08-06 03:02] LABS: Calcium 8.6 mg/dL (8.6-10.3); Potassium 3.5 mEq/L (3.5-5.1)
[2021-08-06] MEDS: Ipratropium/Albuterol Neb 3 ML IH SCH ×6 (03:53→23:56)
[2021-08-06] MEDS: Bumetanide 1 MG TABLET PO SCH ×2 (05:51→19:00)
[2021-08-06] MEDS: Piperacillin/Tazobactam 3.375 GM in 0.9 % Sodium Chloride Mini Bag 100 ML IVPB SCH ×2 (05:52→14:44)
[2021-08-06] MEDS: Pantoprazole 40 MG VIAL IVP SCH (05:53)
[2021-08-06] MEDS: Sennosides/Docusate Sodium TABLET PO SCH ×2 (07:49→22:00)
[2021-08-06] MEDS: Isosorbide MONOnitrate (24 HR) 30 MG TAB.ER.24H PO SCH (07:49)
[2021-08-06] MEDS: hydrOXYzine pamoate 25 MG CAPSULE PO PRN (07:49)
[2021-08-06] MEDS: Nystatin POWDER 30 GM BOTTLE TP SCH ×2 (07:50→22:00)
[2021-08-06] MEDS: amLODIPine 5 MG TABLET PO SCH (07:50)
[2021-08-06] MEDS: Acetaminophen 325 MG TABLET PO PRN (07:51)
[2021-08-06 18:03] LABS: Nucleated Red Blood Cells 0.1 /100 WBC (0)
[2021-08-06 18:05] LABS: Hematocrit 27.6 % (37.5-50.1); Hemoglobin 8.2 g/dL (12.9-16.9); Immature Platelets 3.4 % (1.1-6.1); Mean Corpuscular HGB Conc 29.7 g/dL (31.6-35.5); Mean Corpuscular Hemoglobin 28.3 pg (28.0-33.3); Mean Corpuscular Volume 95.2 fL (83.0-100.0); Mean Platelet Volume 10.1 fL (9.4-12.4); Red Cell Distribution Width 20.3 % (11.5-14.5); White Blood Count 13.9 K/mcL (4.3-11.1)
[2021-08-06 18:06] LABS: Platelet Count 96 K/mcL (140-400)
[2021-08-06 18:23] LABS: Platelet Estimate Decreased (Normal)
[2021-08-06 18:24] LABS: Anisocytosis 1+ (Not Present); Hypochromasia Present (Not Present); Lymphocytes # 0.1 K/mcL (0.6-4.6); Microcytosis Present (Not Present); Monocytes # 0.7 K/mcL (0.0-1.3); Neutrophils # 13.1 K/mcL (1.6-8.9); Ovalocytes 1+ (Not Present)
[2021-08-06 18:25] LABS: Polychromasia 1+ (Not Present)
[2021-08-07] MEDS: methylPREDNISolone 125 MG/2 ML VIAL IVP SCH ×3 (00:34→11:39)
[2021-08-07] MEDS: Piperacillin/Tazobactam 3.375 GM in 0.9 % Sodium Chloride Mini Bag 100 ML IVPB SCH ×4 (00:39→20:57)
[2021-08-07] MEDS: Ipratropium/Albuterol Neb 3 ML IH SCH ×6 (03:44→23:18)
[2021-08-07] MEDS: Bumetanide 1 MG TABLET PO SCH ×2 (05:25→16:17)
[2021-08-07] MEDS: Pantoprazole 40 MG VIAL IVP SCH (05:26)
[2021-08-07 05:58] LABS: Basophils % 0.1 %; Eosinophils # 0.2 K/mcL (0.0-0.6); Eosinophils % 1.5 %; Hematocrit 27.6 % (37.5-50.1); Hemoglobin 8.1 g/dL (12.9-16.9); Immature Granulocytes % 0.7 % (0-4); Immature Platelets 3.6 % (1.1-6.1); Lymphocytes # 0.4 K/mcL (0.6-4.6); Lymphocytes % 3.3 %; Mean Corpuscular HGB Conc 29.3 g/dL (31.6-35.5); Mean Corpuscular Volume 95.5 fL (83.0-100.0); Mean Platelet Volume 10.1 fL (9.4-12.4); Monocytes # 0.4 K/mcL (0.0-1.3); Monocytes % 3.1 %; Neutrophils # 10.3 K/mcL (1.6-8.9); Nucleated Red Blood Cells 0.2 /100 WBC (0); Red Blood Count 2.89 M/mcL (4.19-5.50); Red Cell Distribution Width 20.2 % (11.5-14.5); Segmented Neutrophils % 91.3 %; White Blood Count 11.3 K/mcL (4.3-11.1)
[2021-08-07 06:04] LABS: Platelet Count 84 K/mcL (140-400)
[2021-08-07 06:18] LABS: Calcium 8.6 mg/dL (8.6-10.3); Magnesium 1.9 mg/dL (1.6-2.6); Phosphorous 5.3 mg/dL (2.7-4.5); Potassium 3.4 mEq/L (3.5-5.1)
[2021-08-07] MEDS: amLODIPine 5 MG TABLET PO SCH (09:42)
[2021-08-07] MEDS: Isosorbide MONOnitrate (24 HR) 30 MG TAB.ER.24H PO SCH (09:43)
[2021-08-07] MEDS: Sennosides/Docusate Sodium TABLET PO SCH ×3 (09:44→20:55)
[2021-08-07] MEDS: Nystatin POWDER 30 GM BOTTLE TP SCH ×2 (09:46→20:57)
[2021-08-07] MEDS: predniSONE 20 MG TABLET PO SCH (16:17)
[2021-08-07] MEDS: Melatonin 3 MG TABLET PO PRN (20:56)
[2021-08-08] MEDS: Ipratropium/Albuterol Neb 3 ML IH SCH ×6 (04:00→23:34)
[2021-08-08] MEDS: Bumetanide 1 MG TABLET PO SCH ×2 (05:20→16:54)
[2021-08-08] MEDS: Piperacillin/Tazobactam 3.375 GM in 0.9 % Sodium Chloride Mini Bag 100 ML IVPB SCH ×3 (05:20→19:41)
[2021-08-08] MEDS: Pantoprazole 40 MG VIAL IVP SCH (05:21)
[2021-08-08 05:48] LABS: Hematocrit 27.7 % (37.5-50.1); Hemoglobin 8.1 g/dL (12.9-16.9); Immature Granulocytes % 0.6 % (0-4); Lymphocytes # 0.1 K/mcL (0.6-4.6); Lymphocytes % 0.7 %; Mean Corpuscular HGB Conc 29.2 g/dL (31.6-35.5); Mean Corpuscular Hemoglobin 27.8 pg (28.0-33.3); Mean Corpuscular Volume 95.2 fL (83.0-100.0); Monocytes # 0.2 K/mcL (0.0-1.3); Monocytes % 2.5 %; Red Blood Count 2.91 M/mcL (4.19-5.50); Red Cell Distribution Width 19.8 % (11.5-14.5); Segmented Neutrophils % 96.2 %; White Blood Count 9.5 K/mcL (4.3-11.1)
[2021-08-08 05:49] LABS: Neutrophils # 9.1 K/mcL (1.6-8.9); Platelet Count 72 K/mcL (140-400)
[2021-08-08 06:09] LABS: Calcium 8.5 mg/dL (8.6-10.3); Phosphorous 5.5 mg/dL (2.7-4.5); Potassium 4.1 mEq/L (3.5-5.1)
[2021-08-08] MEDS: Metoprolol XL (24 HR) Succ 25 MG TAB.ER.24H PO SCH (07:55)
[2021-08-08] MEDS: Isosorbide MONOnitrate (24 HR) 30 MG TAB.ER.24H PO SCH (07:55)
[2021-08-08] MEDS: amLODIPine 5 MG TABLET PO SCH (07:55)
[2021-08-08] MEDS: Sennosides/Docusate Sodium TABLET PO SCH ×2 (07:55→19:38)
[2021-08-08] MEDS: predniSONE 20 MG TABLET PO SCH ×2 (07:55→16:54)
[2021-08-08] MEDS: Nystatin POWDER 30 GM BOTTLE TP SCH ×2 (07:56→19:40)
[2021-08-08] MEDS: Acetaminophen 325 MG TABLET PO PRN (13:29)
[2021-08-08 18:39] LABS: APTT (LE Anticoag) 55 sec (32-48); Diluted Russell Viper Venom 33 sec (33-44); LE Coag APTT Mixing 42 sec (32-48); PT (LE-Anticoag) 15.5 sec (12.0-15.5); Thrombin Time 15.4 sec (14.7-19.5)
[2021-08-08] MEDS: Melatonin 3 MG TABLET PO PRN (22:22)
[2021-08-09] MEDS: Ipratropium/Albuterol Neb 3 ML IH SCH ×6 (04:05→23:54)
[2021-08-09] MEDS: Bumetanide 1 MG TABLET PO SCH ×2 (05:56→17:18)
[2021-08-09] MEDS: Pantoprazole 40 MG VIAL IVP SCH (05:56)
[2021-08-09] MEDS: Piperacillin/Tazobactam 3.375 GM in 0.9 % Sodium Chloride Mini Bag 100 ML IVPB SCH ×3 (05:56→22:05)
[2021-08-09 06:29] LABS: Hematocrit 27.4 % (37.5-50.1); Immature Granulocytes % 0.7 % (0-4); Red Cell Distribution Width 19.6 % (11.5-14.5)
[2021-08-09 06:31] LABS: Basophils % 0.1 %; Hemoglobin 8.1 g/dL (12.9-16.9); Immature Platelets 3.3 % (1.1-6.1); Lymphocytes # 0.1 K/mcL (0.6-4.6); Lymphocytes % 1.3 %; Mean Corpuscular HGB Conc 29.6 g/dL (31.6-35.5); Mean Corpuscular Hemoglobin 27.7 pg (28.0-33.3); Mean Corpuscular Volume 93.8 fL (83.0-100.0); Monocytes # 0.3 K/mcL (0.0-1.3); Neutrophils # 8.2 K/mcL (1.6-8.9); Red Blood Count 2.92 M/mcL (4.19-5.50); Segmented Neutrophils % 94.9 %; White Blood Count 8.6 K/mcL (4.3-11.1)
[2021-08-09 06:35] LABS: Platelet Count 73 K/mcL (140-400)
[2021-08-09 06:46] LABS: Calcium 8.5 mg/dL (8.6-10.3); Magnesium 1.8 mg/dL (1.6-2.6); Potassium 3.8 mEq/L (3.5-5.1)
[2021-08-09] MEDS: amLODIPine 5 MG TABLET PO SCH (07:39)
[2021-08-09] MEDS: Nystatin POWDER 30 GM BOTTLE TP SCH ×2 (07:39→20:11)
[2021-08-09] MEDS: Metoprolol XL (24 HR) Succ 25 MG TAB.ER.24H PO SCH (07:39)
[2021-08-09] MEDS: Isosorbide MONOnitrate (24 HR) 30 MG TAB.ER.24H PO SCH (07:39)
[2021-08-09] MEDS: predniSONE 20 MG TABLET PO SCH ×2 (07:39→17:17)
[2021-08-09] MEDS: Sennosides/Docusate Sodium TABLET PO SCH (07:39)
[2021-08-09] MEDS: carvediloL 6.25 MG TABLET PO SCH (17:17)
[2021-08-09] MEDS: Melatonin 3 MG TABLET PO PRN (22:03)
[2021-08-10] MEDS: Ipratropium/Albuterol Neb 3 ML IH SCH ×4 (04:06→16:17)
[2021-08-10] MEDS: Bumetanide 1 MG TABLET PO SCH ×2 (05:26→18:34)
[2021-08-10] MEDS: Piperacillin/Tazobactam 3.375 GM in 0.9 % Sodium Chloride Mini Bag 100 ML IVPB SCH ×2 (05:27→18:34)
[2021-08-10 05:56] LABS: Eosinophils % 0.2 %; Lymphocytes % 1.3 %
[2021-08-10 05:57] LABS: Hematocrit 26.6 % (37.5-50.1); Hemoglobin 8.2 g/dL (12.9-16.9); Immature Granulocytes % 0.8 % (0-4); Immature Platelets 3.6 % (1.1-6.1); Lymphocytes # 0.1 K/mcL (0.6-4.6); Mean Corpuscular HGB Conc 30.8 g/dL (31.6-35.5); Mean Corpuscular Hemoglobin 28.9 pg (28.0-33.3); Mean Corpuscular Volume 93.7 fL (83.0-100.0); Mean Platelet Volume 10.4 fL (9.4-12.4); Monocytes # 0.3 K/mcL (0.0-1.3); Monocytes % 3.2 %; Red Blood Count 2.84 M/mcL (4.19-5.50); Red Cell Distribution Width 19.3 % (11.5-14.5); Segmented Neutrophils % 94.5 %; White Blood Count 8.3 K/mcL (4.3-11.1)
[2021-08-10 06:01] LABS: Neutrophils # 7.8 K/mcL (1.6-8.9); Platelet Count 73 K/mcL (140-400)
[2021-08-10 07:53] LABS: Calcium 8.3 mg/dL (8.6-10.3); Magnesium 1.8 mg/dL (1.6-2.6); Phosphorous 4.4 mg/dL (2.7-4.5); Potassium 3.8 mEq/L (3.5-5.1)
[2021-08-10] MEDS: Isosorbide MONOnitrate (24 HR) 30 MG TAB.ER.24H PO SCH (10:02)
[2021-08-10] MEDS: carvediloL 6.25 MG TABLET PO SCH ×2 (10:02→18:34)
[2021-08-10] MEDS: amLODIPine 5 MG TABLET PO SCH (10:02)
[2021-08-10] MEDS: predniSONE 20 MG TABLET PO SCH ×2 (10:03→18:33)
[2021-08-10] MEDS: Nystatin POWDER 30 GM BOTTLE TP SCH (10:03)
[2021-08-10 16:49] VITALS: TEMP 97.5
[2021-08-10 16:54] LABS: Adenovirus Not Detected (Not Detect); Bordetella Pertussis Not Detected (Not Detect); Chlamydophila pneumoniae Not Detected (Not Detect); Coronavirus 229E Not Detected (Not Detect); Coronavirus HKU1 Not Detected (Not Detect); Coronavirus NL63 Not Detected (Not Detect); Coronavirus OC43 Not Detected (Not Detect); Human Metapneumovirus Not Detected (Not Detect); Human Rhinovirus/Enterovirus Not Detected (Not Detect); Influenza A Subtype 2009 H1 Not Detected (Not Detect); Influenza B Not Detected (Not Detect); Mycoplasma pneumoniae Not Detected (Not Detect); Parainfluenza Virus 1 Not Detected (Not Detect); Parainfluenza Virus 2 Not Detected (Not Detect); Parainfluenza Virus 3 Not Detected (Not Detect); Parainfluenza Virus 4 Not Detected (Not Detect); Respiratory Syncytial Virus Not Detected (Not Detect); SARS-CoV-2 Not Detected (Not Detect)
[2021-08-10 18:53] VITALS: BP 167/90; PULSE 85; O2SAT 95
== END 2021-08-10 20:30 | disposition other institution (70) | DRG 291 ==
LOC: 2NENU 13:01 → EMEROOARM 13:01 → SUATTDRO 21:14 → 2NENU 21:48 → SUATTDRO 07-21 21:00 → ICNU 08-01 13:32 → 2ANU 08-03 22:03
PROVIDERS: ADMIT Family Medicine; ATTEND Hospitalist

== ENCOUNTER 2021-08-23 15:39 | Inpatient (IN) ==
[2021-08-23] MEDS ORDERED: *HR* Labetalol 20 MG/4 ML SYRINGE IVP ONE (18:50)
[2021-08-23] MEDS ORDERED: Acetaminophen 325 MG TABLET PO PRN (20:29)
[2021-08-23] MEDS ORDERED: Ondansetron ODT 4 MG TAB.RAPDIS SL PRN (21:01)
[2021-08-23] MEDS ORDERED: Naloxone 0.4 MG/ML INJ IVP PRN (21:01)
[2021-08-23] MEDS ORDERED: hydrOXYzine pamoate 25 MG CAPSULE PO PRN (21:05)
[2021-08-23] MEDS ORDERED: Ipratropium/Albuterol Neb 3 ML IH PRN (21:37)
[2021-08-23 21:46] LABS: Hematocrit 21.7 % (37.5-50.1); Hemoglobin 6.7 g/dL (12.9-16.9)
[2021-08-23] MEDS ORDERED: Furosemide 20 MG/2 ML VIAL IVP ONE (23:07)
[2021-08-23] MEDS: Bumetanide 1 MG TABLET PO SCH (23:16)
[2021-08-23] MEDS ORDERED: 0.9 % Sodium Chloride 250 ML ONE (23:26)
[2021-08-24 05:32] LABS: Hematocrit 24.3 % (37.5-50.1); Hemoglobin 7.5 g/dL (12.9-16.9); Immature Platelets 1.6 % (1.1-6.1); Mean Corpuscular HGB Conc 30.9 g/dL (31.6-35.5); Mean Corpuscular Volume 90.7 fL (83.0-100.0); Mean Platelet Volume 9.4 fL (9.4-12.4); Red Blood Count 2.68 M/mcL (4.19-5.50); White Blood Count 4.2 K/mcL (4.3-11.1)
[2021-08-24 05:36] LABS: Magnesium 2.1 mg/dL (1.6-2.6); Phosphorous 4.9 mg/dL (2.7-4.5)
[2021-08-24 05:41] LABS: INR 1.2; Prothrombin Time 13.2 Seconds (9.4-12.1)
[2021-08-24 05:42] LABS: Activated Partial Thrombo Time 34.1 Seconds (26.0-36.0); Calcium 8.3 mg/dL (8.6-10.3); Potassium 3.7 mEq/L (3.5-5.1)
[2021-08-24] MEDS ORDERED: *HR* Midazolam HCl 2 MG/2 ML VIAL IVP ONE (09:37)
[2021-08-24] MEDS ORDERED: *HR* FentaNYL (PF) 100 MCG/2 ML VIAL IVP ONE (09:37)
[2021-08-24] MEDS ORDERED: 0.9 % Sodium Chloride 500 ML ONE (09:40)
[2021-08-24] MEDS ORDERED: *HR* FentaNYL (PF) 100 MCG/2 ML VIAL ONE (09:44)
[2021-08-24] MEDS: Aspirin 81 MG TAB.CHEW PO SCH (10:39)
[2021-08-24] MEDS: Bumetanide 1 MG TABLET PO SCH (10:44)
[2021-08-24] MEDS: amLODIPine 5 MG TABLET PO SCH (10:50)
[2021-08-24] MEDS: Lactobacillus 1 EACH CAP.SPRINK PO SCH (10:51)
[2021-08-24] MEDS ORDERED: Vancomycin 1,500 MG/265 ML IV.SOLN IVPB ONE (13:00)
[2021-08-24] MEDS: Piperacillin/Tazobactam 3.375 GM in 0.9 % Sodium Chloride Mini Bag 100 ML IVPB SCH ×2 (13:22→23:43)
[2021-08-25] MEDS: Piperacillin/Tazobactam 3.375 GM in 0.9 % Sodium Chloride Mini Bag 100 ML IVPB SCH ×3 (06:01→20:09)
[2021-08-25 07:26] LABS: Basophils % 0.2 %
[2021-08-25 07:28] LABS: Eosinophils # 0.1 K/mcL (0.0-0.6); Eosinophils % 1.5 %; Hematocrit 23.5 % (37.5-50.1); Immature Granulocytes % 4.8 % (0-4); Immature Platelets 1.2 % (1.1-6.1); Lymphocytes # 0.4 K/mcL (0.6-4.6); Lymphocytes % 9.5 %; Mean Corpuscular HGB Conc 29.8 g/dL (31.6-35.5); Mean Corpuscular Volume 90.7 fL (83.0-100.0); Mean Platelet Volume 9.2 fL (9.4-12.4); Monocytes # 0.5 K/mcL (0.0-1.3); Monocytes % 9.9 %; Neutrophils # 3.4 K/mcL (1.6-8.9); Platelet Count 100 K/mcL (140-400); Red Blood Count 2.59 M/mcL (4.19-5.50); Segmented Neutrophils % 74.1 %; White Blood Count 4.6 K/mcL (4.3-11.1)
[2021-08-25 09:10] LABS: Albumin 2.8 g/dL (3.5-5.7); Albumin/Globulin Ratio 0.8 (1.1-2.2); Bilirubin,Direct 1.8 mg/dL (0.0-0.2); Bilirubin,Indirect 1.2 mg/dL (0.0-1.0); Calcium 8.4 mg/dL (8.6-10.3); Globulin 3.3 g/dL (2.4-3.5); Potassium 3.6 mEq/L (3.5-5.1); Total Protein 6.1 g/dL (6.4-8.9)
[2021-08-25] MEDS: Aspirin 81 MG TAB.CHEW PO SCH (10:19)
[2021-08-25] MEDS: Lactobacillus 1 EACH CAP.SPRINK PO SCH (10:19)
[2021-08-25] MEDS: amLODIPine 5 MG TABLET PO SCH (10:19)
[2021-08-25] MEDS: *HR* HYDROcodone/Acet 5/325 mg TABLET PO PRN (10:29)
[2021-08-25 11:22] LABS: Folate 12.9 ng/mL (3.0-16.0)
[2021-08-25] MEDS ORDERED: Vancomycin 1,500 MG/265 ML IV.SOLN IVPB ONE (13:48)
[2021-08-25] MEDS: Bumetanide 1 MG TABLET PO SCH (16:45)
[2021-08-25] MEDS: Melatonin 3 MG TABLET PO PRN (20:09)
[2021-08-25 20:12] LABS: Mean Corpuscular Volume 90.3 fL (83.0-100.0); Red Cell Distribution Width 18.7 % (11.5-14.5)
[2021-08-25 20:14] LABS: Hematocrit 23.3 % (37.5-50.1); Immature Platelets 1.4 % (1.1-6.1); Mean Corpuscular Hemoglobin 27.1 pg (28.0-33.3); Mean Platelet Volume 9.2 fL (9.4-12.4); Red Blood Count 2.58 M/mcL (4.19-5.50); White Blood Count 4.5 K/mcL (4.3-11.1)
[2021-08-25 20:27] LABS: Potassium 3.5 mEq/L (3.5-5.1)
[2021-08-26 04:10] LABS: Basophils % 0.2 %; Eosinophils # 0.1 K/mcL (0.0-0.6); Eosinophils % 1.7 %; Hematocrit 22.2 % (37.5-50.1); Hemoglobin 6.6 g/dL (12.9-16.9); Immature Granulocytes % 2.8 % (0-4); Immature Platelets 1.2 % (1.1-6.1); Lymphocytes # 0.4 K/mcL (0.6-4.6); Lymphocytes % 8.6 %; Mean Corpuscular HGB Conc 29.7 g/dL (31.6-35.5); Mean Corpuscular Hemoglobin 27.5 pg (28.0-33.3); Mean Corpuscular Volume 92.5 fL (83.0-100.0); Mean Platelet Volume 9.1 fL (9.4-12.4); Monocytes # 0.4 K/mcL (0.0-1.3); Monocytes % 8.6 %; Neutrophils # 3.7 K/mcL (1.6-8.9); Nucleated Red Blood Cells 0.4 /100 WBC (0); Platelet Count 106 K/mcL (140-400); Red Cell Distribution Width 18.6 % (11.5-14.5); Segmented Neutrophils % 78.1 %; White Blood Count 4.7 K/mcL (4.3-11.1)
[2021-08-26 04:24] LABS: Calcium 8.1 mg/dL (8.6-10.3); Potassium 3.4 mEq/L (3.5-5.1)
[2021-08-26] MEDS: Piperacillin/Tazobactam 3.375 GM in 0.9 % Sodium Chloride Mini Bag 100 ML IVPB SCH ×3 (05:06→20:55)
[2021-08-26] MEDS ORDERED: Potassium Chloride Elixir 20 MEQ/15 ML UDC PO ONE (05:18)
[2021-08-26] MEDS ORDERED: 0.9 % Sodium Chloride 250 ML ONE (06:09)
[2021-08-26] MEDS ORDERED: hydrOXYzine pamoate 25 MG CAPSULE PO PRN (07:50)
[2021-08-26] MEDS ORDERED: Artificial Tears SOLN 15 ML BOTTLE BOTH EYES PRN (07:50)
[2021-08-26] MEDS ORDERED: 0.9 % Sodium Chloride 250 ML IVC SCH (08:00)
[2021-08-26] MEDS: Bumetanide 1 MG TABLET PO SCH ×2 (08:12→16:39)
[2021-08-26] MEDS: carvediloL 6.25 MG TABLET PO SCH ×2 (08:12→16:40)
[2021-08-26] MEDS: *HR* HYDROcodone/Acet 5/325 mg TABLET PO PRN (08:13)
[2021-08-26] MEDS: Aspirin 81 MG TAB.CHEW PO SCH (08:13)
[2021-08-26] MEDS: amLODIPine 5 MG TABLET PO SCH (08:13)
[2021-08-26] MEDS: Lactobacillus 1 EACH CAP.SPRINK PO SCH (08:13)
[2021-08-26] MEDS: Cholecalciferol (D-3) 1,000 UNIT (25MCG) TABLET PO SCH (08:16)
[2021-08-26] MEDS: Isosorbide MONOnitrate (24 HR) 30 MG TAB.ER.24H PO SCH (08:16)
[2021-08-26] MEDS ORDERED: Bumetanide 1 MG/4 ML VIAL IVP ONE (12:01)
[2021-08-26] MEDS ORDERED: Albumin 25% 25gram/100mL 25 GM/100 ML IV.SOLN IVPB ONE (12:01)
[2021-08-26] MEDS: Sennosides/Docusate Sodium TABLET PO PRN (14:22)
[2021-08-26] MEDS: tiZANidine 4 MG TABLET PO PRN (14:22)
[2021-08-26] MEDS ORDERED: Vancomycin 1,250 MG/262.5 ML IV.SOLN IVPB ONE (16:00)
[2021-08-26 20:45] LABS: Hematocrit 24.2 % (37.5-50.1); Hemoglobin 7.3 g/dL (12.9-16.9); Mean Corpuscular HGB Conc 30.2 g/dL (31.6-35.5); Mean Corpuscular Hemoglobin 27.2 pg (28.0-33.3); Mean Corpuscular Volume 90.3 fL (83.0-100.0); Mean Platelet Volume 9.7 fL (9.4-12.4); Platelet Count 102 K/mcL (140-400); Red Blood Count 2.68 M/mcL (4.19-5.50); Red Cell Distribution Width 18.6 % (11.5-14.5); White Blood Count 4.6 K/mcL (4.3-11.1)
[2021-08-26] MEDS: Melatonin 3 MG TABLET PO PRN (20:56)
[2021-08-27] MEDS ORDERED: traZODone 50 MG TABLET PO PRN (00:57)
[2021-08-27] MEDS ORDERED: Morphine Sulfate 2 MG/ML SYRINGE IVP ONE (00:57)
[2021-08-27] MEDS: tiZANidine 4 MG TABLET PO PRN (02:01)
[2021-08-27] MEDS: Piperacillin/Tazobactam 3.375 GM in 0.9 % Sodium Chloride Mini Bag 100 ML IVPB SCH ×3 (05:43→21:11)
[2021-08-27] MEDS: *HR* HYDROcodone/Acet 5/325 mg TABLET PO PRN (06:02)
[2021-08-27 08:31] LABS: Basophils % 0.4 %
[2021-08-27 08:33] LABS: Eosinophils # 0.1 K/mcL (0.0-0.6); Eosinophils % 2.1 %; Hematocrit 25.2 % (37.5-50.1); Hemoglobin 7.4 g/dL (12.9-16.9); Immature Platelets 1.5 % (1.1-6.1); Lymphocytes # 0.6 K/mcL (0.6-4.6); Lymphocytes % 10.3 %; Mean Corpuscular HGB Conc 29.4 g/dL (31.6-35.5); Mean Corpuscular Hemoglobin 27.1 pg (28.0-33.3); Mean Corpuscular Volume 92.3 fL (83.0-100.0); Mean Platelet Volume 9.8 fL (9.4-12.4); Monocytes # 0.5 K/mcL (0.0-1.3); Monocytes % 9.3 %; Neutrophils # 3.9 K/mcL (1.6-8.9); Platelet Count 106 K/mcL (140-400); Red Blood Count 2.73 M/mcL (4.19-5.50); Red Cell Distribution Width 18.6 % (11.5-14.5); Segmented Neutrophils % 73.9 %; White Blood Count 5.3 K/mcL (4.3-11.1)
[2021-08-27 08:44] LABS: Albumin 2.6 g/dL (3.5-5.7); Albumin/Globulin Ratio 0.8 (1.1-2.2); Bilirubin,Total 1.7 mg/dL (0.3-1.0); Calcium 8.2 mg/dL (8.6-10.3); Globulin 3.1 g/dL (2.4-3.5); Potassium 3.6 mEq/L (3.5-5.1); Total Protein 5.7 g/dL (6.4-8.9)
[2021-08-27] MEDS: carvediloL 6.25 MG TABLET PO SCH ×2 (09:49→16:30)
[2021-08-27] MEDS: Lactobacillus 1 EACH CAP.SPRINK PO SCH (09:49)
[2021-08-27] MEDS: Aspirin 81 MG TAB.CHEW PO SCH (09:49)
[2021-08-27] MEDS: Bumetanide 1 MG TABLET PO SCH ×3 (09:49→16:31)
[2021-08-27] MEDS: amLODIPine 5 MG TABLET PO SCH ×2 (09:55→10:58)
[2021-08-27] MEDS: Isosorbide MONOnitrate (24 HR) 30 MG TAB.ER.24H PO SCH (09:55)
[2021-08-27] MEDS: Cholecalciferol (D-3) 1,000 UNIT (25MCG) TABLET PO SCH (09:55)
[2021-08-27 10:12] LABS: ABG Base Excess 0 mEq/L (-2 to 3); ABG HCO3 28 mEq/L (21-27); ABG Oxygen Saturation 90 % (95-98); ABG PCO2 68 mmHg (35-45); ABG PH 7.22 pH Units (7.32-7.45); ABG PO2 71 mmHg (85-104); ABG TCO2 30 mEq/L (20-26)
[2021-08-27 10:32] LABS: Adenovirus Not Detected (Not Detect); Bordetella Pertussis Not Detected (Not Detect); Chlamydophila pneumoniae Not Detected (Not Detect); Coronavirus 229E Not Detected (Not Detect); Coronavirus HKU1 Not Detected (Not Detect); Coronavirus NL63 Not Detected (Not Detect); Coronavirus OC43 Not Detected (Not Detect); Human Metapneumovirus Not Detected (Not Detect); Human Rhinovirus/Enterovirus Not Detected (Not Detect); Influenza A Subtype 2009 H1 Not Detected (Not Detect); Influenza B Not Detected (Not Detect); Mycoplasma pneumoniae Not Detected (Not Detect); Parainfluenza Virus 1 Not Detected (Not Detect); Parainfluenza Virus 2 Not Detected (Not Detect); Parainfluenza Virus 3 Not Detected (Not Detect); Parainfluenza Virus 4 Not Detected (Not Detect); Respiratory Syncytial Virus Not Detected (Not Detect); SARS-CoV-2 Not Detected (Not Detect)
[2021-08-27] MEDS ORDERED: Bumetanide 1 MG TABLET PO ONE (12:26)
[2021-08-27] MEDS ORDERED: Albumin 25% 25gram/100mL 25 GM/100 ML IV.SOLN IVPB SCH (12:28)
[2021-08-27] MEDS ORDERED: Vancomycin 1,500 MG/265 ML IV.SOLN IVPB ONE (14:00)
[2021-08-27] MEDS: Sennosides/Docusate Sodium TABLET PO PRN (16:31)
[2021-08-27] MEDS: Melatonin 3 MG TABLET PO PRN (21:48)
[2021-08-28] MEDS: Piperacillin/Tazobactam 3.375 GM in 0.9 % Sodium Chloride Mini Bag 100 ML IVPB SCH ×3 (04:37→20:17)
[2021-08-28 06:10] LABS: Eosinophils # 0.1 K/mcL (0.0-0.6); Eosinophils % 1.9 %; Hematocrit 24.2 % (37.5-50.1); Hemoglobin 7.4 g/dL (12.9-16.9); Immature Granulocytes % 4.3 % (0-4); Lymphocytes # 0.5 K/mcL (0.6-4.6); Mean Corpuscular HGB Conc 30.6 g/dL (31.6-35.5); Mean Corpuscular Hemoglobin 27.8 pg (28.0-33.3); Mean Platelet Volume 9.2 fL (9.4-12.4); Monocytes # 0.6 K/mcL (0.0-1.3); Monocytes % 12.3 %; Neutrophils # 3.3 K/mcL (1.6-8.9); Platelet Count 104 K/mcL (140-400); Red Blood Count 2.66 M/mcL (4.19-5.50); Red Cell Distribution Width 18.8 % (11.5-14.5); Segmented Neutrophils % 70.5 %; White Blood Count 4.6 K/mcL (4.3-11.1)
[2021-08-28 06:30] LABS: Calcium 8.6 mg/dL (8.6-10.3); Magnesium 1.9 mg/dL (1.6-2.6); Potassium 3.2 mEq/L (3.5-5.1)
[2021-08-28] MEDS: carvediloL 6.25 MG TABLET PO SCH ×2 (07:54→18:20)
[2021-08-28] MEDS: Cholecalciferol (D-3) 1,000 UNIT (25MCG) TABLET PO SCH (07:54)
[2021-08-28] MEDS ORDERED: Potassium Effervescent 25 MEQ TABLET.EFF PO ONE (07:54)
[2021-08-28] MEDS: Lactobacillus 1 EACH CAP.SPRINK PO SCH (07:54)
[2021-08-28] MEDS: Bumetanide 1 MG TABLET PO SCH ×2 (07:55→18:20)
[2021-08-28] MEDS: amLODIPine 5 MG TABLET PO SCH (07:55)
[2021-08-28] MEDS: Aspirin 81 MG TAB.CHEW PO SCH (07:55)
[2021-08-28] MEDS: Isosorbide MONOnitrate (24 HR) 30 MG TAB.ER.24H PO SCH (07:55)
[2021-08-28] MEDS ORDERED: Albumin 25% 25gram/100mL 25 GM/100 ML IV.SOLN IVPB SCH (14:30)
[2021-08-28] MEDS ORDERED: Bumetanide 1 MG TABLET PO ONE (15:00)
[2021-08-28 15:10] LABS: RBC,Pleural Fluid 25000 RBC/mcL
[2021-08-28 15:21] LABS: Basophils,Pleural Fluid 0 %
[2021-08-28 15:22] LABS: Appearance of Pleural Fl Hazy (Clear)
[2021-08-28 15:23] LABS: LDH,Pleural Fluid 69 Units/L (No Ref Range); Total Protein,Pleural Fluid < 2.0 g/dL
[2021-08-29] MEDS: Piperacillin/Tazobactam 3.375 GM in 0.9 % Sodium Chloride Mini Bag 100 ML IVPB SCH ×3 (05:32→20:31)
[2021-08-29 05:59] LABS: Basophils % 0.5 %; Eosinophils # 0.1 K/mcL (0.0-0.6); Eosinophils % 1.9 %; Hematocrit 24.1 % (37.5-50.1); Hemoglobin 7.1 g/dL (12.9-16.9); Immature Granulocytes % 4.7 % (0-4); Lymphocytes # 0.5 K/mcL (0.6-4.6); Lymphocytes % 11.7 %; Mean Corpuscular HGB Conc 29.5 g/dL (31.6-35.5); Mean Corpuscular Volume 91.6 fL (83.0-100.0); Mean Platelet Volume 9.6 fL (9.4-12.4); Monocytes # 0.6 K/mcL (0.0-1.3); Monocytes % 13.1 %; Neutrophils # 2.9 K/mcL (1.6-8.9); Nucleated Red Blood Cells 0.9 /100 WBC (0); Platelet Count 106 K/mcL (140-400); Red Blood Count 2.63 M/mcL (4.19-5.50); Red Cell Distribution Width 19.2 % (11.5-14.5); Segmented Neutrophils % 68.1 %; White Blood Count 4.3 K/mcL (4.3-11.1)
[2021-08-29 06:12] LABS: Calcium 8.9 mg/dL (8.6-10.3); Potassium 3.4 mEq/L (3.5-5.1)
[2021-08-29] MEDS: carvediloL 6.25 MG TABLET PO SCH ×2 (08:55→16:03)
[2021-08-29] MEDS: Lactobacillus 1 EACH CAP.SPRINK PO SCH (08:55)
[2021-08-29] MEDS: Bumetanide 1 MG TABLET PO SCH ×2 (08:56→16:02)
[2021-08-29] MEDS: Isosorbide MONOnitrate (24 HR) 30 MG TAB.ER.24H PO SCH (08:56)
[2021-08-29] MEDS: Cholecalciferol (D-3) 1,000 UNIT (25MCG) TABLET PO SCH (08:56)
[2021-08-29] MEDS: Aspirin 81 MG TAB.CHEW PO SCH (08:56)
[2021-08-29] MEDS: amLODIPine 5 MG TABLET PO SCH (08:56)
[2021-08-29] MEDS: polyethylene glycoL 3350 17 GM POWD.PACK PO SCH (08:57)
[2021-08-29] MEDS: *HR* HYDROcodone/Acet 5/325 mg TABLET PO PRN (09:15)
[2021-08-29] MEDS: Spironolactone 25 MG TABLET PO SCH (11:25)
[2021-08-29] MEDS: Sennosides/Docusate Sodium TABLET PO PRN ×2 (11:25→20:31)
[2021-08-29] MEDS: Melatonin 3 MG TABLET PO PRN (20:31)
[2021-08-29 22:24] LABS: ABG Base Excess 5 mEq/L (-2 to 3); ABG HCO3 30 mEq/L (21-27); ABG Oxygen Saturation 91 % (95-98); ABG PCO2 46 mmHg (35-45); ABG PH 7.43 pH Units (7.32-7.45); ABG PO2 61 mmHg (85-104); ABG TCO2 32 mEq/L (20-26)
[2021-08-29] MEDS ORDERED: *HR* Metoprolol 5 MG/5 ML VIAL IVP ONE (23:21)
[2021-08-29 23:24] LABS: Albumin 2.8 g/dL (3.5-5.7); Albumin/Globulin Ratio 0.8 (1.1-2.2); Bilirubin,Direct 1.1 mg/dL (0.0-0.2); Bilirubin,Indirect 0.9 mg/dL (0.0-1.0); Globulin 3.3 g/dL (2.4-3.5); Total Protein 6.1 g/dL (6.4-8.9)
[2021-08-30] MEDS ORDERED: *HR* LORazepam 2 MG/ML VIAL IVP ONE (01:47)
[2021-08-30 02:17] LABS: Hematocrit 23.2 % (37.5-50.1); Mean Corpuscular HGB Conc 30.2 g/dL (31.6-35.5); Mean Corpuscular Hemoglobin 27.5 pg (28.0-33.3); Mean Platelet Volume 9.9 fL (9.4-12.4); Nucleated Red Blood Cells 0.9 /100 WBC (0); Platelet Count 132 K/mcL (140-400); Red Blood Count 2.55 M/mcL (4.19-5.50); Red Cell Distribution Width 19.7 % (11.5-14.5); White Blood Count 4.5 K/mcL (4.3-11.1)
[2021-08-30 02:34] LABS: Calcium 8.7 mg/dL (8.6-10.3); Potassium 3.6 mEq/L (3.5-5.1)
[2021-08-30 03:02] LABS: Anisocytosis 1+ (Not Present)
[2021-08-30 03:04] LABS: Lymphocytes # 0.6 K/mcL (0.6-4.6); Monocytes # 0.3 K/mcL (0.0-1.3); Neutrophils # 3.6 K/mcL (1.6-8.9); Platelet Estimate Normal (Normal)
[2021-08-30] MEDS: Piperacillin/Tazobactam 3.375 GM in 0.9 % Sodium Chloride Mini Bag 100 ML IVPB SCH ×3 (05:17→21:22)
[2021-08-30] MEDS: Bumetanide 1 MG TABLET PO SCH (07:55)
[2021-08-30] MEDS: Lactobacillus 1 EACH CAP.SPRINK PO SCH (07:55)
[2021-08-30] MEDS: carvediloL 6.25 MG TABLET PO SCH ×2 (07:55→19:29)
[2021-08-30] MEDS: Spironolactone 25 MG TABLET PO SCH (07:55)
[2021-08-30] MEDS: Aspirin 81 MG TAB.CHEW PO SCH (07:55)
[2021-08-30] MEDS: Isosorbide MONOnitrate (24 HR) 30 MG TAB.ER.24H PO SCH (07:56)
[2021-08-30] MEDS: amLODIPine 5 MG TABLET PO SCH (07:56)
[2021-08-30] MEDS: polyethylene glycoL 3350 17 GM POWD.PACK PO SCH (07:56)
[2021-08-30] MEDS: Cholecalciferol (D-3) 1,000 UNIT (25MCG) TABLET PO SCH (07:56)
[2021-08-30 08:35] LABS: Hematocrit 23.5 % (37.5-50.1); Hemoglobin 7.1 g/dL (12.9-16.9)
[2021-08-30] MEDS ORDERED: Acetaminophen 325 MG TABLET PO PRN (10:16)
[2021-08-30] MEDS ORDERED: *HR* HYDROcodone/Acet 5/325 mg TABLET PO PRN (10:17)
[2021-08-30] MEDS ORDERED: Albumin 25% 25gram/100mL 25 GM/100 ML IV.SOLN IVPB ONE (15:04)
[2021-08-30] MEDS: Dexmedetomidine HCl 400 MCG/100 ML MLS IVC SCH ×2 (15:55→21:39)
[2021-08-30] MEDS ORDERED: Dexmedetomidine HCl 400 MCG/100 ML MLS IVC ONE (15:58)
[2021-08-30] MEDS ORDERED: Bumetanide 1 MG/4 ML VIAL IVP ONE (17:00)
[2021-08-30] MEDS: Haloperidol Lactate 5 MG/ML VIAL IVP PRN (21:46)
[2021-08-31] MEDS: Dexmedetomidine HCl 400 MCG/100 ML MLS IVC SCH ×3 (02:21→12:23)
[2021-08-31] MEDS: Haloperidol Lactate 5 MG/ML VIAL IVP PRN ×2 (05:07→20:29)
[2021-08-31] MEDS: Piperacillin/Tazobactam 3.375 GM in 0.9 % Sodium Chloride Mini Bag 100 ML IVPB SCH ×3 (05:08→20:28)
[2021-08-31 05:51] LABS: Basophils % 0.4 %; Eosinophils # 0.1 K/mcL (0.0-0.6); Hematocrit 25.6 % (37.5-50.1); Hemoglobin 7.5 g/dL (12.9-16.9); Immature Granulocytes % 4.3 % (0-4); Lymphocytes # 1.1 K/mcL (0.6-4.6); Lymphocytes % 22.2 %; Mean Corpuscular HGB Conc 29.3 g/dL (31.6-35.5); Mean Corpuscular Hemoglobin 27.3 pg (28.0-33.3); Mean Corpuscular Volume 93.1 fL (83.0-100.0); Monocytes # 0.7 K/mcL (0.0-1.3); Monocytes % 14.2 %; Nucleated Red Blood Cells 0.6 /100 WBC (0); Platelet Count 164 K/mcL (140-400); Red Blood Count 2.75 M/mcL (4.19-5.50); Red Cell Distribution Width 20.2 % (11.5-14.5); Segmented Neutrophils % 57.9 %; White Blood Count 5.1 K/mcL (4.3-11.1)
[2021-08-31 06:10] LABS: Calcium 9.2 mg/dL (8.6-10.3); Potassium 3.7 mEq/L (3.5-5.1)
[2021-08-31] MEDS: Aspirin 81 MG TAB.CHEW PO SCH (08:40)
[2021-08-31] MEDS: carvediloL 6.25 MG TABLET PO SCH ×2 (08:40→17:45)
[2021-08-31] MEDS: Isosorbide MONOnitrate (24 HR) 30 MG TAB.ER.24H PO SCH (08:40)
[2021-08-31] MEDS: Lactobacillus 1 EACH CAP.SPRINK PO SCH (08:40)
[2021-08-31] MEDS: amLODIPine 5 MG TABLET PO SCH (08:41)
[2021-08-31] MEDS: polyethylene glycoL 3350 17 GM POWD.PACK PO SCH (08:41)
[2021-08-31] MEDS: Cholecalciferol (D-3) 1,000 UNIT (25MCG) TABLET PO SCH (08:41)
[2021-08-31 10:01] LABS: INR 1.7; Prothrombin Time 18.9 Seconds (9.4-12.1)
[2021-08-31] MEDS ORDERED: Bumetanide 1 MG/4 ML VIAL IVP ONE (12:27)
[2021-08-31] MEDS: Albumin 25% 25gram/100mL 25 GM/100 ML IV.SOLN IVPB SCH (13:06)
[2021-08-31 15:47] LABS: RBC,Pleural Fluid 214000 RBC/mcL
[2021-08-31 17:15] LABS: Appearance of Pleural Fl Bloody (Clear)
[2021-08-31] MEDS ORDERED: Saliva Stimulant 44.3ml BOTTLE PO PRN (20:43)
[2021-09-01] MEDS: Haloperidol Lactate 5 MG/ML VIAL IVP PRN (02:05)
[2021-09-01 06:15] LABS: Basophils % 0.5 %
[2021-09-01 06:17] LABS: Eosinophils # 0.1 K/mcL (0.0-0.6); Eosinophils % 1.5 %; Hematocrit 24.5 % (37.5-50.1); Hemoglobin 7.2 g/dL (12.9-16.9); Immature Granulocytes % 3.1 % (0-4); Lymphocytes # 1.2 K/mcL (0.6-4.6); Lymphocytes % 19.5 %; Mean Corpuscular HGB Conc 29.4 g/dL (31.6-35.5); Mean Corpuscular Hemoglobin 27.9 pg (28.0-33.3); Mean Platelet Volume 8.6 fL (9.4-12.4); Monocytes % 15.8 %; Neutrophils # 3.7 K/mcL (1.6-8.9); Platelet Count 151 K/mcL (140-400); Red Blood Count 2.58 M/mcL (4.19-5.50); Red Cell Distribution Width 20.1 % (11.5-14.5); Segmented Neutrophils % 59.6 %; White Blood Count 6.2 K/mcL (4.3-11.1)
[2021-09-01 06:28] LABS: Calcium 8.8 mg/dL (8.6-10.3); Potassium 3.6 mEq/L (3.5-5.1)
[2021-09-01] MEDS: Piperacillin/Tazobactam 3.375 GM in 0.9 % Sodium Chloride Mini Bag 100 ML IVPB SCH ×3 (06:28→20:48)
[2021-09-01] MEDS: Albumin 25% 25gram/100mL 25 GM/100 ML IV.SOLN IVPB SCH (09:34)
[2021-09-01] MEDS: Isosorbide MONOnitrate (24 HR) 30 MG TAB.ER.24H PO SCH (10:57)
[2021-09-01] MEDS: polyethylene glycoL 3350 17 GM POWD.PACK PO SCH (10:57)
[2021-09-01] MEDS: carvediloL 6.25 MG TABLET PO SCH ×2 (10:57→17:39)
[2021-09-01] MEDS: Aspirin 81 MG TAB.CHEW PO SCH (10:57)
[2021-09-01] MEDS: Lactobacillus 1 EACH CAP.SPRINK PO SCH (10:57)
[2021-09-01] MEDS: amLODIPine 5 MG TABLET PO SCH (10:58)
[2021-09-01] MEDS: Cholecalciferol (D-3) 1,000 UNIT (25MCG) TABLET PO SCH (10:58)
[2021-09-01] MEDS: Sennosides/Docusate Sodium TABLET PO SCH ×2 (10:58→19:33)
[2021-09-01] MEDS ORDERED: Acetaminophen IV 1,000 MG/100 ML BAG IVPB ONE (12:14)
[2021-09-01] MEDS: D5% in Water 1,000 ML IVC SCH (14:39)
[2021-09-01 15:15] LABS: ABG Base Excess 8 mEq/L (-2 to 3); ABG HCO3 36 mEq/L (21-27); ABG Oxygen Saturation 77 % (95-98); ABG PCO2 81 mmHg (35-45); ABG PH 7.26 pH Units (7.32-7.45); ABG PO2 50 mmHg (85-104); ABG TCO2 39 mEq/L (20-26)
[2021-09-02 00:26] LABS: ABG Base Excess 9 mEq/L (-2 to 3); ABG HCO3 37 mEq/L (21-27); ABG Oxygen Saturation 94 % (95-98); ABG PCO2 76 mmHg (35-45); ABG PH 7.29 pH Units (7.32-7.45); ABG PO2 85 mmHg (85-104); ABG TCO2 39 mEq/L (20-26); Blood Gas Modality BiLevel
[2021-09-02] MEDS: D5% in Water 1,000 ML IVC SCH ×2 (04:53→17:40)
[2021-09-02] MEDS: Piperacillin/Tazobactam 3.375 GM in 0.9 % Sodium Chloride Mini Bag 100 ML IVPB SCH ×2 (04:54→15:59)
[2021-09-02 05:32] LABS: Eosinophils % 0.9 %; Mean Platelet Volume 9.3 fL (9.4-12.4); Nucleated Red Blood Cells 0.2 /100 WBC (0); Platelet Count 173 K/mcL (140-400)
[2021-09-02 05:33] LABS: Basophils % 0.4 %; Eosinophils # 0.1 K/mcL (0.0-0.6); Hematocrit 21.9 % (37.5-50.1); Hemoglobin 6.4 g/dL (12.9-16.9); Immature Granulocytes % 1.8 % (0-4); Lymphocytes # 1.7 K/mcL (0.6-4.6); Lymphocytes % 16.7 %; Mean Corpuscular HGB Conc 29.2 g/dL (31.6-35.5); Mean Corpuscular Hemoglobin 28.4 pg (28.0-33.3); Mean Corpuscular Volume 97.3 fL (83.0-100.0); Monocytes # 1.2 K/mcL (0.0-1.3); Monocytes % 11.9 %; Neutrophils # 7.1 K/mcL (1.6-8.9); Red Blood Count 2.25 M/mcL (4.19-5.50); Red Cell Distribution Width 20.7 % (11.5-14.5); Segmented Neutrophils % 68.3 %; White Blood Count 10.4 K/mcL (4.3-11.1)
[2021-09-02 05:44] LABS: Calcium 7.9 mg/dL (8.6-10.3); Potassium 3.8 mEq/L (3.5-5.1)
[2021-09-02] MEDS ORDERED: 0.9 % Sodium Chloride 250 ML ONE ×2 (06:18→15:26)
[2021-09-02 06:49] LABS: Anisocytosis 2+ (Not Present); Basophilic Stippling 1+ (Not Present); Polychromasia 1+ (Not Present)
[2021-09-02 06:50] LABS: Spherocytes 1+ (Not Present)
[2021-09-02 06:51] LABS: Microcytosis Present (Not Present); Platelet Estimate Normal (Normal)
[2021-09-02] MEDS: Lactobacillus 1 EACH CAP.SPRINK PO SCH (07:52)
[2021-09-02] MEDS: amLODIPine 5 MG TABLET PO SCH (07:52)
[2021-09-02] MEDS: carvediloL 6.25 MG TABLET PO SCH ×2 (07:52→15:59)
[2021-09-02] MEDS: polyethylene glycoL 3350 17 GM POWD.PACK PO SCH (07:52)
[2021-09-02] MEDS: Isosorbide MONOnitrate (24 HR) 30 MG TAB.ER.24H PO SCH (07:52)
[2021-09-02] MEDS: Aspirin 81 MG TAB.CHEW PO SCH (07:52)
[2021-09-02] MEDS: Sennosides/Docusate Sodium TABLET PO SCH (07:52)
[2021-09-02] MEDS: Cholecalciferol (D-3) 1,000 UNIT (25MCG) TABLET PO SCH (07:52)
[2021-09-02] MEDS ORDERED: Piperacillin/Tazobactam 3.375 GM in 0.9 % Sodium Chloride Mini Bag 100 ML IVPB SCH (11:00)
[2021-09-02 12:59] LABS: ABG Base Excess 8 mEq/L (-2 to 3); ABG HCO3 34 mEq/L (21-27); ABG Oxygen Saturation 91 % (95-98); ABG PCO2 58 mmHg (35-45); ABG PH 7.37 pH Units (7.32-7.45); ABG PO2 65 mmHg (85-104); ABG TCO2 36 mEq/L (20-26)
[2021-09-02 14:27] LABS: Hematocrit 21.9 % (37.5-50.1); Hemoglobin 6.5 g/dL (12.9-16.9)
[2021-09-02 15:38] LABS: Albumin 2.8 g/dL (3.5-5.7); Bilirubin,Direct 5.8 mg/dL (0.0-0.2); Bilirubin,Indirect 3.2 mg/dL (0.0-1.0); Globulin 2.9 g/dL (2.4-3.5); Total Protein 5.7 g/dL (6.4-8.9)
[2021-09-02] MEDS ORDERED: Vancomycin 500 MG in 0.9 % Sodium Chloride Mini Bag 100 ML IVPB ONE (16:00)
[2021-09-02 16:30] LABS: INR 1.5; Prothrombin Time 16.8 Seconds (9.4-12.1)
[2021-09-02] MEDS ORDERED: Bisacodyl 10 MG RECTAL SUPPOSITORY RC PRN (16:31)
[2021-09-02 20:08] LABS: Hemoglobin 7.3 g/dL (12.9-16.9)
[2021-09-03 03:45] LABS: Basophils # 0.1 K/mcL (0.0-0.2); Basophils % 0.7 %; Eosinophils # 0.1 K/mcL (0.0-0.6); Eosinophils % 1.2 %; Hematocrit 24.5 % (37.5-50.1); Hemoglobin 7.5 g/dL (12.9-16.9); Immature Granulocytes % 4.5 % (0-4); Lymphocytes # 1.9 K/mcL (0.6-4.6); Mean Corpuscular HGB Conc 30.6 g/dL (31.6-35.5); Mean Corpuscular Hemoglobin 28.5 pg (28.0-33.3); Mean Corpuscular Volume 93.2 fL (83.0-100.0); Mean Platelet Volume 9.3 fL (9.4-12.4); Monocytes # 1.1 K/mcL (0.0-1.3); Monocytes % 11.2 %; Neutrophils # 6.4 K/mcL (1.6-8.9); Nucleated Red Blood Cells 0.3 /100 WBC (0); Platelet Count 191 K/mcL (140-400); Red Blood Count 2.63 M/mcL (4.19-5.50); Red Cell Distribution Width 19.9 % (11.5-14.5); Segmented Neutrophils % 63.4 %
[2021-09-03 04:14] LABS: Albumin 2.8 g/dL (3.5-5.7); Albumin/Globulin Ratio 0.8 (1.1-2.2); Bilirubin,Indirect 1.6 mg/dL (0.0-1.0); Bilirubin,Total 5.6 mg/dL (0.3-1.0); Globulin 3.3 g/dL (2.4-3.5); Total Protein 6.1 g/dL (6.4-8.9)
[2021-09-03 04:15] LABS: Calcium 7.8 mg/dL (8.6-10.3); Potassium 3.8 mEq/L (3.5-5.1)
[2021-09-03 04:36] LABS: Fluid Source for Albumin PLEURAL FL
[2021-09-03] MEDS: Piperacillin/Tazobactam 3.375 GM in 0.9 % Sodium Chloride Mini Bag 100 ML IVPB SCH ×2 (06:17→16:09)
[2021-09-03] MEDS: Isosorbide MONOnitrate (24 HR) 30 MG TAB.ER.24H PO SCH (08:15)
[2021-09-03] MEDS: Lactobacillus 1 EACH CAP.SPRINK PO SCH (08:15)
[2021-09-03] MEDS: Aspirin 81 MG TAB.CHEW PO SCH (08:15)
[2021-09-03] MEDS: polyethylene glycoL 3350 17 GM POWD.PACK PO SCH (08:15)
[2021-09-03] MEDS: Cholecalciferol (D-3) 1,000 UNIT (25MCG) TABLET PO SCH (08:15)
[2021-09-03] MEDS: carvediloL 6.25 MG TABLET PO SCH ×2 (08:15→15:38)
[2021-09-03] MEDS: amLODIPine 5 MG TABLET PO SCH (08:15)
[2021-09-03] MEDS ORDERED: *HR* HYDROmorphone (PF) 1 MG/ML SYRINGE IVP PRN (10:07)
[2021-09-03] MEDS ORDERED: D5% in Water 1,000 ML IVC SCH (13:15)
[2021-09-03 15:23] VITALS: PULSE 96
[2021-09-03] MEDS ORDERED: *HR* LORazepam 2 MG/ML VIAL IVP PRN (17:12)
[2021-09-03] MEDS: *HR* HYDROmorphone 2 MG/ML SYRINGE IVP PRN (17:19)
[2021-09-03 23:15] VITALS: BP 76/47; TEMP 100
[2021-09-03 23:41] VITALS: O2SAT 93
[2021-09-04] MEDS: *HR* HYDROmorphone 2 MG/ML SYRINGE IVP PRN (04:44)
== END 2021-09-04 07:08 | disposition expired | DRG 871 ==
LOC: 4WAOSI → SUATTDRO 08-24 00:07 → 2NNU 08-25 19:23 → 2ANU 08-29 00:24 → 2NNU 08-30 15:48
PROVIDERS: ADMIT Family Medicine; ATTEND Student in an Organized Health Care Education/Training Program